=== PATIENT | female | born 1995 | race Caucasian/White ===

== ENCOUNTER 2017-11-02 16:57 | Emergency (ER) | payer OTHER, SELFPAY ==
[2017-11-02 18:12] LABS: Urine Blood NEGATIVE (NEG); Urine Glucose TRACE (NEG); Urine Protein 1+ (NEG); Urine Specific Gravity >1.030 (1.005-1.030)
[2017-11-02 18:40] LABS: Absolute Lymphocytes (CBC) 2.1 K/uL (0.7-4.9); Absolute Monocytes 0.6 K/uL (0.1-1.3); Absolute Neutrophil 8.5 K/uL (1.8-8.0); Basophils % 0.5 % (0-1.3); Eosinophils % 0.3 % (0-4.4); Lymphocytes % 18.8 % (15.3-44.8); MCH 28.5 pg (27.0-35.0); MCV 87.2 fL (80-100); MPV 9.7 fL (7.6-11.3); Monocytes % 5.3 % (3.3-12.3); RBC Red Blood Cell Count 4.36 M/uL (3.86-4.86)
[2017-11-02 18:48] LABS: BUN Blood Urea Nitrogen 7 mg/dL (6-20); Bicarbonate 23 mEq/L (21-31); Glucose Level 81 mg/dL (65-120); Potassium 3.4 mEq/L (3.6-5.0); Sodium Level 135 mEq/L (135-145)
--- NOTE | 2017-11-02 19:36 | RAD REPORT ---
EXAM DESCRIPTION: US - TRANSVAG OB - 11/02/2017 7:00 pm CLINICAL HISTORY: Vaginal bleeding. COMPARISON: None. FINDINGS: A single gestational sac is seen within the uterus within normal oblong gestational sac sh ape. Within the sac is a single pole with crown-rump length measuring 16 mm corresponding to 8 weeks 0 days gestational age. 13 x 7 mm subchorionic bleed is seen superiorly. Qualitative amniotic f luid for gestational age is normal. Cardiac activity is normal measuring 158 BPM. Both ovaries are normal in size, shape and echotexture with normal Doppler blood flow. IMPRESSION: Single live early intrauterine gestation as detailed above.13 x 7 mm subchorionic bleed along the superior aspect of the sac is noted.
--- NOTE | 2017-11-02 20:30 | EDPHYS ---
Physician Documentation [facility] Name: Yane Viera Age: 22 yrs Sex: Female : 1995 Arrival Date: 11/02/2017 Time: 17:01 Bed 15 Private MD: None, None ED Physician Da Gibson HPI: 11/02 17:20 This 22 yrs old Female presents to ER via Ambulatory with complaints of jmm Vaginal Bleeding, + Preg <12wks. 17:20 The patient presents to the emergency department with vaginal bleeding, that is jmm moderate, with no clots. The estimated gestational age is 8 weeks. course: care: none. Previous pregnancies: in previous pregnancies patient has had. Associated signs and symptoms: Pertinent positives: vaginal bleeding, vaginal discharge, Pertinent negatives: abdominal pain. The patient has not experienced similar symptoms in the past. DOCTORATE OF CHIROPRACTIC: 17:05 unknown rb1 17:20 2, Living 1 jmm Historical: - Allergies: 17:05 No Known Allergies; sv - Home Meds: 20:35 Vitamin Oral tab 1 tab once daily [Active]; bs1 - PMHx: 17:05 None; sv - PSHx: 17:05 None; sv - Immunization history:: Adult Immunizations up to date. - Social history:: Smoking status: Patient/guardian denies using tobacco. - Ebola Screening: : Patient denies exposure to infectious person Patient denies travel to an Ebola-affected area in the 21 days before illness onset. ROS: 17:20 Constitutional: Negative for fever, chills, and weight loss, Cardiovascular: Negative jmm for chest pain, palpitations, and edema, Respiratory: Negative for shortness of breath, cough, wheezing, and pleuritic chest pain, Abdomen/GI: Negative for abdominal pain, nausea, vomiting, diarrhea, and constipation, Back: Negative for injury and pain. 17:20 : Positive for vaginal bleeding, vaginal discharge. 17:20 Skin: 17:20 Neuro: Negative for weakness. 17:20 All other systems are negative. Exam: 17:20 Constitutional: This is a well developed, well nourished patient who is awake, alert, jmm and in no acute distress. Cardiovascular: Regular rate and rhythm. No gallops, murmurs, or rubs. Full/Equal distal pulses. Respiratory: Lungs have equal breath sounds bilaterally, clear to auscultation. No rales, rhonchi or wheezes noted. No increased work of breathing, no retractions or nasal flaring. Abdomen/GI: Soft, non-tender, with normal bowel sounds. No distension or tympany. No guarding or rebound. No evidence of tenderness throughout. 17:20 : Pelvic Exam: External exam: is normal, Speculum exam: no bleeding is noted, os that is closed, discharge, white. 17:20 Musculoskeletal/extremity: ROM: intact in all extremities. 17:20 Skin: Appearance: Color: normal in color. 17:20 Neuro: Orientation: is normal, Mentation: is normal, Memory: is normal, Gait: is steady. 17:20 Psych: Behavior/mood is pleasant, cooperative. Vital Signs: 17:05 BP 105 / 57; Pulse 83; Resp 16; Temp 98.7; Pulse Ox 98% on R/A; Weight 54.43 kg; Height sv 5 ft. 1 in. (154.94 cm); Pain 6/10; 18:00 BP 109 / 65; Pulse 78; Resp 17; Pulse Ox 99% ; rb1 19:15 BP 105 / 68; Pulse 67; Resp 16; Pulse Ox 99% on R/A; bs1 20:15 BP 108 / 58; Pulse 68; Resp 17 S; Temp 97.9(O); Pulse Ox 100% on R/A; Pain 0/10; bs1 17:05 Body Mass Index 22.67 (54.43 kg, 154.94 cm) sv MDM: 17:26 Patient medically screened. [facility] 20:29 Data reviewed: vital signs, nurses notes, lab test result(s), radiologic studies, [facility] ultrasound. Counseling: I had a detailed discussion with the patient and/or guardian regarding: the historical points, exam findings, and any diagnostic results supporting the discharge/admit diagnosis, lab results, radiology results, the need for outpatient follow up, to return to the emergency department if symptoms worsen or persist or if there are any questions or concerns that arise at home. 11/02 17:38 Order name: Urine Dipstick--Ancillary (enter results); Complete Time: 19:40 11/02 17:38 Order name: Urine --Ancillary (enter results); Complete Time: 19:40 11/02 18:10 Order name: Abo/rh Typing; Complete Time: 19:40 [facility] 11/02 18:10 Order name: Basic Metabolic Panel; Complete Time: 19:40 [facility] 11/02 18:10 Order name: CBC with Diff; Complete Time: 19:40 [facility] 11/02 18:10 Order name: IV Saline Lock; Complete Time: 18:55 [facility] 11/02 18:10 Order name: Labs collected and sent; Complete Time: 18:55 [facility] 11/02 18:10 Order name: NPO; Complete Time: 18:55 [facility] 11/02 18:10 Order name: Urine Dipstick-Ancillary (obtain specimen); Complete Time: 18:55 [facility] 11/02 18:22 Order name: TRANSVAG OB; Complete Time: 19:40 [facility] 11/02 19:11 Order name: Pelvic Exam Setup; Complete Time: 20:31 [facility] Administered Medications: 19:53 CANCELLED (wrong patient): fentaNYL (PF) 50 mcg IVP once [facility] Point of Care Testing: Urine : 20:35 hCG Reading: Positive; Control Reading: Positive; bs1 Disposition: 11/02/17 20:30 Discharged to Home. Impression: Threatened . - Condition is Stable. - Discharge Instructions: Threatened Miscarriage, Subchorionic Hematoma, Pelvic Rest. - Medication Reconciliation Form, Thank You Letter, Antibiotic Education, Prescription Opioid Use form. - Follow up: Private Physician; When: 1 - 2 days; Reason: Continuance of care. Addendum: 11/04/2017 07:02 Co-signature as Attending Physician, Da Gibson MD. r n Signatures: Dispatcher [employer] [facility] Lizy Velázquez RN RN sv Anderson, Corey, MD MD cha Mickail, Joel, PA PA Da Medina MD MD rn Salazar, Brittany, RN RN bs1 Corrections: (The following items were deleted from the chart) 11/02 18:22 18:12 Pelvis Complete+US.RAD.BRZ [facility]. [facility] 19:53 19:53 fentaNYL (PF) 50 mcg IVP once ordered. [facility] 20:35 17:05 Home Meds: None; sv bs1 20:49 20:30 11/02/2017 20:30 Discharged to Home. Impression: Threatened . Condition bs1 is Stable. Forms are Medication Reconciliation Form, Thank You Letter, Antibiotic Education, Prescription Opioid Use. Follow up: Private Physician; When: 1 - 2 days; Reason: Continuance of care. john
--- NOTE | 2017-11-02 20:30 | ER ---
Nurse's Notes [facility] Name: Yane Viera Age: 22 yrs Sex: Female : 1995 Arrival Date: 11/02/2017 Time: 17:01 Bed 15 Private MD: None, None Diagnosis: Threatened Presentation: 11/02 17:03 Presenting complaint: Patient states: "I'm like 8-9 weeks and I was sitting sv down earlier and then a gush of blood came out. This happened once before when I was with my daughter and I ended up miscarrying her twin. I'm also have bad cramps.". Transition of care: patient was not received from another setting of care. Onset of symptoms was November 02, 2017. Risk Assessment: Do you want to hurt yourself or someone else? Patient reports no desire to harm self or others. Initial Sepsis Screen: Does the patient meet any 2 criteria? No. Patient's initial sepsis screen is negative. Does the patient have a suspected source of infection? No. Patient's initial sepsis screen is negative. Care prior to arrival: None. 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 - Social history:: Smoking status: Patient/guardian denies using tobacco. - Ebola Screening: : Patient denies exposure to infectious person Patient denies travel to an Ebola-affected area in the 21 days before illness onset. Screenin:15 Abuse screen: Denies threats or abuse. Nutritional screening: No deficits noted. rb1 Tuberculosis screening: No symptoms or risk factors identified. Fall Risk None identified. Assessment: 17:15 General: Appears in no apparent distress. comfortable, Behavior is calm, cooperative, rb1 Denies fever. Pain: Complains of pain in suprapubic area Pain currently is 5 out of 10 on a pain scale. at worst was 8 out of 10 on a pain scale. Neuro: Level of Consciousness is awake, alert, obeys commands, Oriented to person, place, time, situation. Cardiovascular: Capillary refill < 3 seconds is brisk in bilateral fingers. Respiratory: Airway is patent Respiratory effort is even, unlabored, Respiratory pattern is regular, symmetrical. GI: Reports nausea. : Reports vaginal bleeding that is bright red, Had a moderate amount of vaginal bleeding this morning but the bleeding has slowed down per pt. report. Derm: Skin is pink, warm \\T\\ dry. 18:08 Reassessment: Patient appears in no apparent distress at this time. No changes from rb1 previously documented assessment. 19:05 Reassessment: Report received from ANNITA Maxwell. bs1 19:05 General: Appears in no apparent distress. comfortable, Behavior is calm, cooperative, bs1 appropriate for age. Pain: Complains of pain in abdomen and suprapubic area. Neuro: Level of Consciousness is awake, alert, obeys commands, Oriented to person, place, time, situation. Cardiovascular: Denies chest pain, shortness of breath, Heart tones S1 S2 present Capillary refill < 3 seconds Patient's skin is warm and dry. Respiratory: Airway is patent Trachea midline Respiratory effort is even, unlabored, Respiratory pattern is regular, symmetrical, Breath sounds are clear bilaterally. GI: Reports nausea. : Reports vaginal bleeding that is bright red. Derm: Skin is intact, Skin is pink, warm \\T\\ dry. 20:20 Reassessment: Assisted BRANDON Lopez with pelvic exam, patient tolerated. bs1 Vital Signs: 17:05 BP 105 / 57; Pulse 83; Resp 16; Temp 98.7; Pulse Ox 98% on R/A; Weight 54.43 kg; Height sv 5 ft. 1 in. (154.94 cm); Pain 6/10; 18:00 BP 109 / 65; Pulse 78; Resp 17; Pulse Ox 99% ; rb1 19:15 BP 105 / 68; Pulse 67; Resp 16; Pulse Ox 99% on R/A; bs1 20:15 BP 108 / 58; Pulse 68; Resp 17 S; Temp 97.9(O); Pulse Ox 100% on R/A; Pain 0/10; bs1 17:05 Body Mass Index 22.67 (54.43 kg, 154.94 cm) sv Vitals: 17:05 Heart Tones Too early for FHT. rb1 ED Course: 17:01 Patient arrived in ED. mr 17:01 None, None is Private Physician. mr 17:04 Triage completed. sv 17:05 Arm band placed on right wrist. 17:13 John Sousa PA is PHCP. [facility] 17:13 Da Gibson MD is Attending Physician. [facility] 17:15 Patient has correct armband on for positive identification. Bed in low position. Call rb1 light in reach. Side rails up X 1. Pulse ox on. NIBP on. 17:42 Alissa Roque, RN is Primary Nurse. rb1 18:27 Initial lab(s) drawn, by ny, sent to lab. Urine collected: clean catch specimen, clear. [facility] Inserted saline lock: 22 gauge in right antecubital area, using aseptic technique. Blood collected. 19:00 Report given to ANNITA Jacobson. [facility] 19:01 TRANSVAG OB In Process Unspecified. EDMS 19:01 Abo/rh Typing Sent. [facility] 20:20 Assist provider with pelvic exam: Set up pelvic tray. Performed by John TAYLOR bs1 Patient tolerated well. 20:34 IV discontinued, bleeding controlled, No redness/swelling at site. Pressure dressing bs1 applied. Administered Medications: 19:53 CANCELLED (wrong patient): fentaNYL (PF) 50 mcg IVP once [facility] Point of Care Testing: Urine : 20:35 hCG Reading: Positive; Control Reading: Positive; bs1 Outcome: 20:30 Discharge ordered by . [facility] 20:40 Discharged to home ambulatory. bs1 20:40 Condition: stable 20:40 Discharge instructions given to patient, Instructed on discharge instructions, follow up and referral plans. Demonstrated understanding of instructions, follow-up care. 20:49 Patient left the ED. bs1 Signatures: Dispatcher [employer] Lizy Maurer RN RN sv Mickail, Joel, PA PA jmm Rivera, Maria mr Alissa Roque, Marizol Segovia RN [facility] Indira Jessica RN RN bs1 Corrections: (The following items were deleted from the chart) 20:35 17:05 Home Meds: None; sv bs1 20:39 20:34 No provider procedures requiring assistance completed. bs1 bs1
== END 2017-11-02 20:49 | disposition home or self-care (01) ==
LOC: ER 16:57
DX: O20.0 Threatened abortion (principal); Z3A.08 8 weeks gestation of pregnancy
CPT/HCPCS: 36415; 76813; 80048; 81003; 81025; 85025; 86900; 86901; 99284

== ENCOUNTER 2018-01-22 00:20 | Emergency (ER) | payer OTHER ==
[2018-01-22] MEDS ORDERED: D5 0.9 NS 1,000 ML IV ONE ×2 (01:01→02:12)
[2018-01-22 01:10] LABS: Urine Blood NEGATIVE (NEG); Urine Glucose NEGATIVE (NEG); Urine Protein NEGATIVE (NEG); Urine Specific Gravity >1.030 (1.005-1.030)
[2018-01-22 01:36] LABS: Calcium Oxalate Crystals- Ur FEW (NONE SEEN); Urine Bacteria 20-50 /HPF (<20); Urine Culture Reflex Order REFLEXED; Urine Mucus MOD /HPF (NONE SEEN); Urine RBC <5 /HPF (NONE SEEN); Urine Trichomonas PRESENT (NONE SEEN)
[2018-01-22] MEDS ORDERED: metroNIDAZOLE 500 MG TABLET ONE (02:12)
[2018-01-22] MEDS ORDERED: CEFTRIAXONE/SWI 1gm 1 GM/10 ML SYR ONE (02:13)
--- NOTE | 2018-01-22 02:21 | ER ---
Nurse's Notes [facility] Name: Yane Viera Age: 22 yrs Sex: Female : 1995 Arrival Date: 01/22/2018 Time: 00:21 Bed 27 Private MD: Diagnosis: False labor before 37 completed weeks of gestation, second trimester;Cystitis;Trichomoniasis Presentation: 01/22 00:35 Presenting complaint: Patient states: she is 19 weeks and a few days ago she bb thought she lost her mucous plug then tonight she started feeling contractions in her abdomen, denies vaginal bleeding. Transition of care: patient was not received from another setting of care. Onset of symptoms was January 20, 2018. Risk Assessment: Do you want to hurt yourself or someone else? Patient reports no desire to harm self or others. Initial Sepsis Screen: Does the patient meet any 2 criteria? No. Patient's initial sepsis screen is negative. Does the patient have a suspected source of infection? No. Patient's initial sepsis screen is negative. Care prior to arrival: None. 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 - Social history:: Smoking status: Patient/guardian denies using tobacco, Patient/guardian denies using alcohol, street drugs. - Ebola Screening: : No symptoms or risks identified at this time. Screenin:21 Abuse screen: Denies threats or abuse. Denies injuries from another. Nutritional rv screening: No deficits noted. Tuberculosis screening: No symptoms or risk factors identified. Fall Risk None identified. Assessment: 01:05 General: Appears in no apparent distress. comfortable, Behavior is calm, cooperative. rv Pain: Complains of pain in abdomen. Neuro: Level of Consciousness is awake, alert, obeys commands, Oriented to person, place, time, situation. Cardiovascular: Capillary refill < 3 seconds. Respiratory: Airway is patent. GI: No signs and/or symptoms were reported involving the gastrointestinal system. : No signs and/or symptoms were reported regarding the genitourinary system. EENT: No signs and/or symptoms were reported regarding the EENT system. Derm: Skin is intact. 01:29 Reassessment: Patient appears in no apparent distress at this time. Patient and/or rv family updated on plan of care and expected duration. Pain level reassessed. Patient is alert, oriented x 3, equal unlabored respirations, skin warm/dry/pink. PATIENT SENT TO T\ FOR MONITORING. 02:03 Reassessment: PATIENT CAME BACK FROM T\. rv Vital Signs: 00:38 BP 121 / 67; Pulse 93; Resp 16 S; Temp 98.4(O); Pulse Ox 100% on R/A; Weight 53.98 kg bb (R); Height 5 ft. 1 in. (154.94 cm) (R); Pain 4/10; 00:51 BP 113 / 71; Pulse 87; Pulse Ox 100% on R/A; rv 02:12 BP 112 / 55; Pulse 79; Pulse Ox 100% on R/A; rv 00:38 Body Mass Index 22.48 (53.98 kg, 154.94 cm) bb Vitals: 01:21 Heart Tones 160s. rv ED Course: 00:21 Patient arrived in ED. am2 00:35 Enrique Mirza MD is Attending Physician. gs 00:37 Triage completed. bb 00:38 Arm band placed on Patient placed in an exam room, on a stretcher, on pulse oximetry. bb 01:22 Patient has correct armband on for positive identification. Placed in gown. Bed in low rv position. Call light in reach. Side rails up X 1. Pulse ox on. NIBP on. 01:22 No provider procedures requiring assistance completed. Inserted saline lock: 20 gauge rv in right antecubital area, using aseptic technique. 02:30 IV discontinued, bleeding controlled, No redness/swelling at site. Pressure dressing rv applied. 02:31 Urine Culture Sent. rv Administered Medications: 01:05 Drug: D5-NS 1000 ml Route: IV; Rate: bolus; Site: right antecubital; rv 02:12 Follow up: IV Status: Completed infusion rv 02:12 Drug: D5-NS 500 ml Route: IV; Rate: 500 bolus; Site: right antecubital; rv 02:31 Follow up: IV Status: Completed infusion rv 02:12 Drug: Rocephin - (cefTRIAXone) 1 grams Route: IVPB; Infused Over: 30 mins; Site: right rv antecubital; 02:31 Follow up: IV Status: Completed infusion rv 02:12 Drug: Flagyl 1 grams Route: PO; rv 02:30 Follow up: Response: No adverse reaction rv Outcome: 02:21 Discharge ordered by . gs 02:30 Discharged to home ambulatory. rv 02:30 Condition: good 02:30 Discharge instructions given to patient, Instructed on discharge instructions, follow up and referral plans. medication usage, Demonstrated understanding of instructions, follow-up care, medications, Prescriptions given X 1. 02:30 Patient left the ED. rv Signatures: Shyla Maldonado RN RN Katerina Brenner am2 Enrique Mirza MD MD gs Vicente, Ronaldo, RN RN rv Corrections: (The following items were deleted from the chart) : 01:23 Patient admitted, IV remains in place. intact, rv rv 01:22 Condition: stable rv rv 01:22 Admitted to L \T\ D, accompanied by tech, via wheelchair, with chart, rv rv 01:22 Instructed on the need for admit, rv rv
--- NOTE | 2018-01-22 02:21 | EDPHYS ---
Physician Documentation [facility] Name: Yane Viera Age: 22 yrs Sex: Female : 1995 Arrival Date: 01/22/2018 Time: 00:21 Bed 27 Private MD: ED Physician Enrique Mirza HPI: 01/22 02:13 This 22 yrs old Female presents to ER via Ambulatory with complaints of gs Contractions 19 wks preg. 02:13 The patient presents to the emergency department with possible uterine contractions, gs 3-7 minutes. The estimated gestational age is 19.6 weeks. course: care: at a clinic, Leakage of Fluid: none appreciated. Previous pregnancies: in previous pregnancies patient has had. Associated signs and symptoms: Pertinent negatives: chest pain, fever, shortness of breath, vomiting. The patient has experienced similar episodes in the past, a few times. 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 - Social history:: Smoking status: Patient/guardian denies using tobacco, Patient/guardian denies using alcohol, street drugs. - Ebola Screening: : No symptoms or risks identified at this time. ROS: 02:13 All other systems are negative. gs 02:13 : Negative for vaginal bleeding, vaginal discharge, vaginal itching. gs Exam: 02:13 Head/Face: Normocephalic, atraumatic. Eyes: Pupils equal round and reactive to light, gs extra-ocular motions intact. Lids and lashes normal. Conjunctiva and sclera are non-icteric and not injected. Cornea within normal limits. Periorbital areas with no swelling, redness, or edema. ENT: Nares patent. No nasal discharge, no septal abnormalities noted. Tympanic membranes are normal and external auditory canals are clear. Oropharynx with no redness, swelling, or masses, exudates, or evidence of obstruction, uvula midline. Mucous membranes moist. Neck: Trachea midline, no thyromegaly or masses palpated, and no cervical lymphadenopathy. Supple, full range of motion without nuchal rigidity, or vertebral point tenderness. No Meningismus. Chest/axilla: Normal chest wall appearance and motion. Nontender with no deformity. No lesions are appreciated. Cardiovascular: Regular rate and rhythm with a normal S1 and S2. No gallops, murmurs, or rubs. Normal PMI, no JVD. No pulse deficits. Respiratory: Lungs have equal breath sounds bilaterally, clear to auscultation and percussion. No rales, rhonchi or wheezes noted. No increased work of breathing, no retractions or nasal flaring. Back: No spinal tenderness. No costovertebral tenderness. Full range of motion. Skin: Warm, dry with normal turgor. Normal color with no rashes, no lesions, and no evidence of cellulitis. MS/ Extremity: Pulses equal, no cyanosis. Neurovascular intact. Full, normal range of motion. Neuro: Awake and alert, GCS 15, oriented to person, place, time, and situation. Cranial nerves II-XII grossly intact. Motor strength 5/5 in all extremities. Sensory grossly intact. Cerebellar exam normal. Normal gait. 02:13 Constitutional: The patient appears alert, awake. 02:13 Abdomen/GI: Inspection: gravid appearance, is noted, Palpation: abdomen is soft and gs non-tender, in all quadrants. Vital Signs: 00:38 BP 121 / 67; Pulse 93; Resp 16 S; Temp 98.4(O); Pulse Ox 100% on R/A; Weight 53.98 kg bb (R); Height 5 ft. 1 in. (154.94 cm) (R); Pain 4/10; 00:51 BP 113 / 71; Pulse 87; Pulse Ox 100% on R/A; rv 02:12 BP 112 / 55; Pulse 79; Pulse Ox 100% on R/A; rv 00:38 Body Mass Index 22.48 (53.98 kg, 154.94 cm) bb MDM: 00:53 Patient medically screened. gs 02:13 Differential diagnosis: Morrow hernández, delivery of infant, STD, Data reviewed: vital gs signs, nurses notes. Response to treatment: the patient's symptoms have markedly improved after treatment, patient is well hydrated. and as a result, I will discharge patient. ED course: no contraction and good fht by monitor, will cont to hydrate treat trich and uti. 01/22 00:35 Order name: Urine Microscopic Only; Complete Time: 01:39 01/22 00:48 Order name: Urine Dipstick--Ancillary (enter results) rg2 01/22 00:49 Order name: Urine Dipstick-Ancillary [facility] 01/22 01:39 Order name: Urine Culture [facility] 01/22 00:35 Order name: Vital Signs; Complete Time: 00:58 01/22 00:35 Order name: Urine Dipstick-Ancillary (obtain specimen); Complete Time: 00:46 gs Administered Medications: 01:05 Drug: D5-NS 1000 ml Route: IV; Rate: bolus; Site: right antecubital; rv 02:12 Follow up: IV Status: Completed infusion rv 02:12 Drug: D5-NS 500 ml Route: IV; Rate: 500 bolus; Site: right antecubital; rv 02:31 Follow up: IV Status: Completed infusion rv 02:12 Drug: Rocephin - (cefTRIAXone) 1 grams Route: IVPB; Infused Over: 30 mins; Site: right rv antecubital; 02:31 Follow up: IV Status: Completed infusion rv 02:12 Drug: Flagyl 1 grams Route: PO; rv 02:30 Follow up: Response: No adverse reaction rv Disposition: 01/22/18 02:21 Discharged to Home. Impression: False labor before 37 completed weeks of gestation, second trimester, Cystitis, Trichomoniasis. - Condition is Stable. - Discharge Instructions: Abdominal Pain During , Urinary Tract Infection, Adult, Morrow Hernández Contractions. - Prescriptions for Keflex 500 mg Oral Capsule - take 1 capsule by ORAL route every 12 hours for 5 days; 10 capsule. - Medication Reconciliation Form, Thank You Letter, Antibiotic Education, Prescription Opioid Use form. - Follow up: Private Physician; When: 2 - 3 days; Reason: Re-evaluation by your physician. Signatures: Dispatcher [employer] Shyla Dobbins RN RN bb Starr, Gregory, MD MD gs Vicente, Ronaldo, RN RN rv Corrections: (The following items were deleted from the chart) 02:21 02:21 01/22/2018 02:21 Discharged to Home. Impression: False labor before 37 completed gs weeks of gestation, second trimester. Condition is Stable. Forms are Medication Reconciliation Form, Thank You Letter, Antibiotic Education, Prescription Opioid Use. Follow up: Private Physician; When: 2 - 3 days; Reason: Re-evaluation by your physician. 02:30 02:21 01/22/2018 02:21 Discharged to Home. Impression: False labor before 37 completed rv weeks of gestation, second trimester; Cystitis; Trichomoniasis. Condition is Stable. Forms are Medication Reconciliation Form, Thank You Letter, Antibiotic Education, Prescription Opioid Use. Follow up: Private Physician; When: 2 - 3 days; Reason: Re-evaluation by your physician.
== END 2018-01-22 02:30 | disposition home or self-care (01) ==
LOC: ER 00:20
DX: O47.02 False labor before 37 completed weeks of gestation, second trimester (principal); N30.90 Cystitis, unspecified without hematuria; A59.9 Trichomoniasis, unspecified; Z3A.19 19 weeks gestation of pregnancy
CPT/HCPCS: 81003; 81015; 87086; 87088; 96361; 96365; 99284; J0696

== ENCOUNTER 2020-09-19 18:31 | Emergency (ER) | payer OTHER ==
--- OUTSIDE RECORDS SUMMARY | 2020-09-19 18:33 | XMS REPORT | Continuity of Care Document ---
:1995 Author Organization [facility] t Address [address] [place] [address] Care Team Providers Name Role Phone Unavailable Unavailable Unavailable Payers Payer Name Policy Type Policy Number Effective Date Expiration Date S ource Problems This patient has no known problems. Allergies, Adverse Reactions, Alerts Allergy Allergy Status Severity Reaction(s) Onset Inactive Treating Comm ents Source Name Type Date Date Clinician No Known DA Active U 2017-05 [facility] [place] No Known DA Active U 2017-05 [facility] [place] No Known DA Active U 2016-05 [facility] 1[facility] [place] Social History Smoking Status Start Date Stop Date Source Never Smoker [facility] Medications Ordered Filled Start Stop Current Ordering Indication Dosage Frequency Signature Comments Components Source Medication Medication Date Date Medication? Clinician (SIG) Name Name Flagyl 500 Flagyl 500 No 1 BID Flagyl 500 [place] mg tablet mg tablet mg tablet da Take 1 Take 1 Take 1 [facility] tablet tablet tablet al twice a day twice a day twice a Health by oral by oral day by Outre[facility] route for 7 route for 7 oral route h days. days. for 7 Program days. 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[facility]) [facility] BP Systolic 2019-12-25 00:00:00 110 mm[facility]Hg[facility] Body Weight 2019-12-25 00:00:00 114 [lb_av] [facility] BP Diastolic 2019-07-31 00:00:00 70 mm[facility]Hg] [facility] Height 2019-07-31 00:00:00 61 [in_i] [facility] BMI (Body Mass 2019-07-31 00:00:00 21.5 kg/m2 [facility] 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 [facility] Index) [facility] BP Systolic 2019-07-31 00:00:00 121 mm[Hg] [facility] Body Weight 2019-07-31 00:00:00 114 [lb_av] [facility] BP Diastolic 2019-01-30 00:00:00 79 mm[Hg] [facility] Height 2019-01-30 00:00:00 61 [in_i] [facility] BMI (Body Mass 2019-01-30 00:00:00 22.5 kg/m2 [place] 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 Plan of Care Planned Activity Planned Date Details Comments Source Diagnostic Test 2019-12-25 RPR (rapid plasma [place] Pending 00:00:00 [facility]), serum [code [facility] = RPR (rapid plasma [facility] re[facility]), serum] Diagnostic Test 2019-12-25 HIV 1+2 AB + HIV 1 [facility] 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 Pending 00:00:00 p24 Ag, qualitative [facility] immunoassay, serum [facility] [code = HIV 1+2 AB + HIV 1 p24 Ag, qualitative immunoassay, serum] Diagnostic Test 2019-12-25 HBsAg (hepatitis B [facility] 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 Pending 00:00:00 surface Ag), EIA, [facility] serum [code = HBsAg [facility] (hepatitis B surface Ag), EIA, serum] Diagnostic Test 2019-12-25 cytology report, thin [place] Pending 00:00:00 prep, smear or [facility] scraping, cervical or Outrea ch Program vaginal [code = cytology report, thin prep, smear or scraping, cervical or vaginal] Encounters Start End Encounter Admission Attending Care Care Encounter Source Date/Time Date/Time Type Type Clinicians Facility Department ID 2019-12-25 2019-12-25 Carla ELIAS [place] - [id number] M [facility] 00:00:00 00:00:00 Zaria Milligan, [facility] PROCESS DESCRIPTION WRITER: [address] Tyson F N, CORPORATE DIRECTOR [facility] [place] [id number] Progr am , Ph. 2019-07-31 2019-07-31 Carla ELIAS [place] - [id number] M [facility] 00:00:00 00:00:00 Zaria Milligan, [facility] PROCESS DESCRIPTION WRITER: [address] Tyson F N, CORPORATE DIRECTOR [facility] [place] [id number] Progr am , Ph. 2019-01-30 2019-01-30 Carla ELIAS [place] - [id number] M [facility] 00:00:00 00:00:00 Zaria Milligan, [facility] PROCESS DESCRIPTION WRITER: [address] Tyson F N, CORPORATE DIRECTOR [facility] [place] [phone] Progr am , Ph. Results Test Description Test Time Test Comments Results Result Comments Source Urinalysis macro (dipstick) panel - Urine 2019-07-31 10:51:0 0 Test Item Value Reference Range Interpretation Comme nts Leukocytes (test code = Leukocytes) trace Nitrite (test code = Nitrite) negative Urobilinogen (test code = Urobilinogen) 0.2 Protein (test code = Protein) negative pH (test code = pH) 7.5 Blood (test code = Blood) trace-lysed Specific [place] (test code = Specific [place]) 1.020 Ketone (test code = Ketone) negative Bilirubin (test code = Bilirubin) negative Glucose (test code = Glucose) negative Appearance (test code = Appearance) clear Color (test code = Color) yellow [facility]
[2020-09-19] MEDS ORDERED: DICYCLOMINE HCL 10 MG CAP ONE ×2 (22:40→22:42)
[2020-09-19] MEDS ORDERED: NA CHLORIDE 0.9% 0 ML ONE (22:41)
[2020-09-19 22:42] LABS: Urine Blood Trace-intact (Negative); Urine Glucose Negative (Negative); Urine Protein Negative (Negative); Urine Specific Gravity >=1.030 (1.005-1.030)
[2020-09-19 23:19] LABS: Absolute Lymphocytes (CBC) 2.5 K/uL (0.7-4.9); Basophils % 0.6 % (0-1.3); Hematocrit 37.8 % (36.0-45.0); Lymphocytes % 21.9 % (15.3-44.8); MPV 9.2 fL (7.6-11.3); RBC Red Blood Cell Count 4.32 M/uL (3.86-4.86)
[2020-09-19 23:22] LABS: Urine Bacteria <20 /HPF (<20); Urine RBC NONE SEEN /HPF (NONE SEEN)
[2020-09-19 23:40] LABS: ALT/SGPT 19 U/L (12-78); AST/SGOT 10 U/L (15-37); Albumin 4.2 g/dL (3.4-5.0); Alkaline Phosphatase 53 U/L (45-117); BUN Blood Urea Nitrogen 10 mg/dL (7-18); Bicarbonate 24 mmol/L (21-32); Bilirubin Direct 0.1 mg/dL (0-0.2); Bilirubin Total 0.6 mg/dL (0.2-1.0); Glucose Level 110 mg/dL (74-106); HCG, Quantitative 47 mIU/mL (1-3); Lipase 88 U/L (73-393); Potassium 3.7 mmol/L (3.5-5.1); Protein, Total 7.6 g/dL (6.4-8.2); Sodium Level 138 mmol/L (136-145)
[2020-09-20 00:43] LABS: Urine Specific Gravity/Preg >1.030 (1.005-1.030)
--- NOTE | 2020-09-20 01:20 | EDPHYS ---
Physician Documentation [facility] Name: Yane Viera Age: 25 yrs Sex: Female : 1995 Arrival Date: 09/19/2020 Time: 18:40 Bed 30 Private MD: ED Physician Jose Sexton HPI: 09/19 22:09 This 25 yrs old Female presents to ER via Ambulatory with complaints of cp Abdominal Pain. 22:09 The patient presents with abdominal pain in the lower abdomen. Onset: The cp symptoms/episode began/occurred yesterday. The symptoms do not radiate. The symptoms are described as crampy. 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 - Social history:: Smoking status: Reported history of juuling and/or vaping. Patient uses street drugs, CBD oil. ROS: 22:10 Eyes: Negative for injury, pain, redness, and discharge. cp 22:10 Constitutional: Negative for body aches, chills, fever, poor PO intake. 22:10 Cardiovascular: Negative for chest pain. 22:10 Respiratory: Negative for cough, shortness of breath, wheezing. 22:10 Abdomen/GI: Positive for abdominal cramps, Negative for nausea and vomiting, diarrhea, constipation. 22:10 Back: Negative for radiated pain. 22:10 : Negative for urinary symptoms, vaginal bleeding, vaginal discharge. 22:10 All other systems are negative. Exam: 22:11 Head/Face: Normocephalic, atraumatic. cp 22:11 Constitutional: The patient appears in no acute distress, alert, awake, comfortable, non-toxic, well developed, well nourished. 22:11 Eyes: Periorbital structures: appear normal, Conjunctiva: normal, no exudate, no injection, Sclera: no appreciated abnormality, Lids and lashes: appear normal, bilaterally. 22:11 ENT: External ear(s): are unremarkable, Nose: is normal, Mouth: Lips: moist, Oral mucosa: moist, Posterior pharynx: Airway: no evidence of obstruction, patent. 22:11 Chest/axilla: Inspection: normal, Palpation: is normal, no crepitus, no tenderness. 22:11 Cardiovascular: Rate: normal, Rhythm: regular. 22:11 Respiratory: the patient does not display signs of respiratory distress, Respirations: normal, no use of accessory muscles, no retractions, labored breathing, is not present. 22:11 Abdomen/GI: Inspection: abdomen appears normal, Bowel sounds: active, all quadrants, Palpation: soft, in all quadrants, mild abdominal tenderness, in the right lower quadrant and left lower quadrant, rebound tenderness, is not appreciated, voluntary guarding, is not appreciated, involuntary guarding, is not appreciated. 22:11 Back: pain, is absent, ROM is normal. Vital Signs: 18:53 BP 116 / 80; Pulse 68; Resp 18; Temp 97.9(TE); Pulse Ox 100% on R/A; Weight 55.79 kg tw2 (R); Height 5 ft. 1 in. (154.94 cm); Pain 4/10; 22:48 BP 112 / 80; Pulse 70; Resp 16; Pulse Ox 100% on R/A; jm8 09/20 00:06 BP 124 / 78; Pulse 64; Resp 16; Pulse Ox 100% on R/A; jm8 02:08 BP 119 / 84; Pulse 64; Resp 16; Pulse Ox 100% on R/A; 8 09/19 18:53 Body Mass Index 23.24 (55.79 kg, 154.94 cm) tw2 MDM: 09/19 22:04 Patient medically screened. cp 23:30 Differential diagnosis: appendicitis, Ectopic , non-specific abd pain, Ovarian cp Torsion, Pelvic Inflammatory Disease, Pyelonephritis, Tubal Ovarian Abcess, Ureterolithiasis, urinary tract infection. 09/20 01:18 Data reviewed: vital signs, nurses notes, lab test result(s), US tech reports no cp evidence of IUP and/or ectopic at this time. Counseling: I had a detailed discussion with the patient and/or guardian regarding: the historical points, exam findings, and any diagnostic results supporting the discharge/admit diagnosis, lab results, radiology results, the need for outpatient follow up, an OB/Gyne specialist, to return to the emergency department if symptoms worsen or persist or if there are any questions or concerns that arise at home. 09/19 22:42 Order name: Urine Dipstick-Ancillary; Complete Time: 00:07 [facility] 09/20 00:07 Interpretation: Normal except: UBLD Trace-intact. 09/19 23:04 Order name: Urine Microscopic Only; Complete Time: 00:07 [facility] 09/20 01:56 Interpretation: Within normal limits. 09/19 23:16 Order name: Basic Metabolic Panel; Complete Time: 00:07 [facility] 09/20 00:07 Interpretation: Normal except: GLUC 110. 09/19 23:16 Order name: Liver (Hepatic) Function; Complete Time: 00:07 [facility] 09/19 23:16 Order name: Lipase; Complete Time: 00:07 [facility] 09/19 23:16 Order name: HCG, Quantitative; Complete Time: 00:07 [facility] 09/20 00:08 Interpretation: Abnormal: HCGQ 47. 09/19 23:16 Order name: CBC with Automated Diff; Complete Time: 00:07 [facility] 09/20 00:08 Interpretation: Normal except: WBC 11.20. 09/19 22:10 Order name: Labs collected and sent; Complete Time: 23:10 09/19 22:10 Order name: Urine Dipstick-Ancillary (obtain specimen); Complete Time: 22:45 09/19 22:10 Order name: Urine Test (obtain specimen); Complete Time: 22:44 09/19 23:16 Order name: Rh Typing; Complete Time: 01:53 [facility] 09/20 00:08 Interpretation: Reviewed. 09/19 23:21 Order name: Transvaginal OB [facility] 09/20 00:42 Order name: Urine --Ancillary (enter results); Complete Time: 01:53 mw2 Administered Medications: 09/19 22:24 Drug: Bentyl (dicyclomine) 20 mg Route: PO; [facility] 09/20 02:11 Follow up: Response: No adverse reaction; Pain is decreased [facility] 09/19 22:58 Not Given (Patient Refused): NS 0.9% 1000 ml IV at 1 bolus Per protocol; 1000 mL bolus [facility] 09/20 01:53 CANCELLED (Physician Discretion): RhoGAM (Human) 300 mcg IM once cp Point of Care Testing: Urine : 09/19 22:45 hCG Reading: Positive; Control Reading: Positive; [email or web address] Disposition: 09/20 06:34 Co-signature as Attending Physician, Jose Sexton MD. 7 Disposition: 09/20/20 01:19 Discharged to Home. Impression: Threatened . - Condition is Stable. - Discharge Instructions: Threatened Miscarriage, Vaginal Bleeding During , First Trimester, Pelvic Rest, Form - Excuse from Work, School, or Physical Activity. - Prescriptions for Vitamin 27- 0.8 mg Oral Tablet - take 1 tablet by ORAL route once daily; 60 tablet. - Medication Reconciliation Form, Thank You Letter, Antibiotic Education, Prescription Opioid Use form. - Follow up: Private Physician; When: 48 Hours; Reason: Repeat Beta-HCG (48 Hours). - Problem is new. - Symptoms have improved. Signatures: Dispatcher [employer] EDMS Raymond López PA PA cp Wise, Tara RN RN tw2 Jose Sexton MD MD 7 Berhane Hurtado RN RN 8 Corrections: (The following items were deleted from the chart) 09/19 22:59 22:10 IV Saline Lock ordered. cp [facility] 23:33 23:33 RH TYPE+BB.LAB.BRZ ordered. EDMS EDMS 23:49 23:33 UA MICROSCOPIC+U.LAB.BRZ ordered. EDMS EDMS 23:50 23:33 CBC+H.LAB.BRZ ordered. EDMS EDMS 23:50 23:33 QUANTITATIVE HCG+C.LAB.BRZ ordered. EDMS EDMS 23:51 23:33 BASIC METABOLIC PANEL+C.LAB.BRZ ordered. EDMS EDMS 23:51 23:33 HEPATIC FUNCTION+C.LAB.BRZ ordered. EDMS EDMS 23:51 23:33 LIPASE+C.LAB.BRZ ordered. EDMS EDMS 09/20 00:21 09/19 23:33 Transvaginal Ob+US.RAD.BRZ ordered. EDMS EDMS 09/20 01:43 00:50 Fetalscreen ordered. EDMS EDMS 01:53 00:08 RhoGAM (Human) 300 mcg IM once ordered. cp cp :53 00:32 RhoGAM (Human) 300 mcg IM once ordered. 8 01:54 01:43 Rh Typing ordered. EDMS EDMS 01:54 01:43 Antibody Screen ordered. EDAL EDMS :54 01:43 Cord Rh type ordered. EDAL EDMS 01:54 01:43 Rhogam ordered. [facility] EDMS 02:12 01:19 09/20/2020 01:19 Discharged to Home. Impression: Threatened . Condition jm8 is Stable. Forms are Medication Reconciliation Form, Thank You Letter, Antibiotic Education, Prescription Opioid Use. Follow up: Private Physician; When: 48 Hours; Reason: Repeat Beta-HCG (48 Hours). Problem is new. Symptoms have improved. cp
--- NOTE | 2020-09-20 01:20 | ER ---
Nurse's Notes [facility] Name: Yane Viera Age: 25 yrs Sex: Female : 1995 Arrival Date: 09/19/2020 Time: 18:40 Bed 30 Private MD: Diagnosis: Threatened Presentation: 09/19 18:53 Chief complaint: Patient states: my stomach has been hurting yesterday, alicia like a tw2 cramping or burning sensation, last week i was vomiting. Chief complaint: Patient states: the pain comes and goes. Coronavirus screen: At this time, the client does not indicate any symptoms associated with coronavirus-19. Ebola Screen: Patient denies travel to an Ebola-affected area in the 21 days before illness onset. Initial Sepsis Screen: Does the patient meet any 2 criteria? No. Patient's initial sepsis screen is negative. Does the patient have a suspected source of infection? No. Patient's initial sepsis screen is negative. Risk Assessment: Do you want to hurt yourself or someone else? Patient reports no desire to harm self or others. Onset of symptoms was September 19, 2020. 18:53 Method Of Arrival: Ambulatory tw2 18:53 Acuity: ADILENE 3 tw2 Triage Assessment: 18:53 General: Appears in no apparent distress. slender, well groomed, Behavior is calm, tw2 cooperative, appropriate for age. Pain: Complains of pain in abdomen and pelvis. GI: Reports lower abdominal pain, cramping. 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 - Social history:: Smoking status: Reported history of juuling and/or vaping. Patient uses street drugs, CBD oil. Screenin:12 Abuse screen: Denies threats or abuse. Denies injuries from another. Nutritional jm8 screening: No deficits noted. Tuberculosis screening: No symptoms or risk factors identified. Fall Risk None identified. Assessment: 22:45 General: Appears in no apparent distress. Behavior is calm, cooperative, appropriate jm8 for age. Pain: Complains of pain in abdomen Pain currently is 4 out of 10 on a pain scale. Pain began 1 day ago. Neuro: No deficits noted. 23:11 Cardiovascular: No deficits noted. Respiratory: No deficits noted. GI: Bowel sounds jm8 present X 4 quads. Abd is soft and non tender X 4 quads. Reports lower abdominal pain, upper abdominal pain, since yesterday vaginal bleeding. : No deficits noted. EENT: No deficits noted. Derm: No deficits noted. Musculoskeletal: No deficits noted. Vital Signs: 18:53 BP 116 / 80; Pulse 68; Resp 18; Temp 97.9(TE); Pulse Ox 100% on R/A; Weight 55.79 kg tw2 (R); Height 5 ft. 1 in. (154.94 cm); Pain 4/10; 22:48 BP 112 / 80; Pulse 70; Resp 16; Pulse Ox 100% on R/A; jm8 09/20 00:06 BP 124 / 78; Pulse 64; Resp 16; Pulse Ox 100% on R/A; jm8 02:08 BP 119 / 84; Pulse 64; Resp 16; Pulse Ox 100% on R/A; jm8 09/19 18:53 Body Mass Index 23.24 (55.79 kg, 154.94 cm) tw2 ED Course: 09/19 18:40 Patient arrived in ED. mr 18:54 Triage completed. tw2 18:55 Arm band placed on. tw2 21:50 Raymond López PA is PHCP. cp 21:50 Jose Sexton MD is Attending Physician. cp 23:12 Patient has correct armband on for positive identification. Bed in low position. Call jm8 light in reach. Side rails up X2. 09/20 00:48 Transvaginal OB In Process Unspecified. EDMS 02:10 No provider procedures requiring assistance completed. Patient did not have IV access 8 during this emergency room visit. Administered Medications: 09/19 22:24 Drug: Bentyl (dicyclomine) 20 mg Route: PO; 8 09/20 02:11 Follow up: Response: No adverse reaction; Pain is decreased 8 09/19 22:58 Not Given (Patient Refused): NS 0.9% 1000 ml IV at 1 bolus Per protocol; 1000 mL bolus 8 09/20 01:53 CANCELLED (Physician Discretion): RhoGAM (Human) 300 mcg IM once cp Point of Care Testing: Urine : 09/19 22:45 hCG Reading: Positive; Control Reading: Positive; khushbu Outcome: 09/20 01:19 Discharge ordered by MD. hernández 02:11 Discharged to home khushbu 02:11 Condition: good 02:11 Discharge instructions given to patient, Instructed on discharge instructions, follow up and referral plans. Demonstrated understanding of instructions, follow-up care. 02:12 Patient left the ED. khushbu Signatures: Dispatcher [employer] EDMS Jie López Corey, PA PA cp Wise, Tara, RN RN tw2 Berhane Hurtado RN RN jm8 Corrections: (The following items were deleted from the chart) 01:43 01:11 Fetalscreen drawn and sent. khushbu HERNANDESSD
[2020-09-20 02:22] VITALS: TEMP 97.9; O2SAT 100
[2020-09-20 02:26] VITALS: BP 119/84
--- NOTE | 2020-09-20 12:10 | RAD REPORT ---
EXAM DESCRIPTION: Transvaginal OB 09/20/2020 12:57 AM CDT CLINICAL HISTORY: 25 years, Female, abdominal pain COMPARISON: None. TECHNIQUE: Utilizing a transvaginal transducer, real-time ultrasound evaluation of the female pelvis was performed. Color Doppler imaging was used to assess vascular flow. FINDINGS: The uterus measures 8.8 x 4.4 x 5.3 cm. The endometrial stripe demonstrate to be normal and measure 11 mm, no focal masses were identified within the uterus. The right ovary measured 2.5 x 2.9 x 2.8 cm, the left ovary measures 2.6 x 2.0 x 2.0 cm. There is nor mal vascular flow and spectral waveforms with no evidence for torsion. No free fluid was identified in the posterior cul-de-sac, no adnexal masses seen. IMPRESSION: UNREMARKABLE PELVIC ULTRASOUND. NO ADNEXAL MASSES SEEN. Electronically signed by: Deon Park MD 09/20/2020 1:02 AM CDT Due to temporary technical issues with the PACS/Fluency reporting system, reports are being signed by the in house radiologist without review as a courtesy to ensure prompt reporting. The interpreting r adiologist is fully responsible for the content of the report.
== END 2020-09-20 02:12 | disposition home or self-care (01) ==
LOC: ER 18:31
DX: O20.0 Threatened abortion (principal); F17.290 Nicotine dependence, other tobacco product, uncomplicated
CPT/HCPCS: 36415; 76817; 80048; 80076; 81003; 81015; 81025; 83690; 84702; 85025; 86901; 99283; J7030

== ENCOUNTER 2021-03-10 13:19 | Emergency (ER) | payer OTHER ==
[2021-03-10 14:11] LABS: Urine Blood 3+ (Negative); Urine Glucose Negative (Negative); Urine Protein 1+ (Negative)
--- NOTE | 2021-03-10 14:28 | RAD REPORT ---
EXAM DESCRIPTION: US - Transvaginal OB - 03/10/2021 2:09 pm CLINICAL HISTORY: VAGINAL BLEEDING, miscarriage, possible retained products of conception COMPARISON: Transvaginal OB dated 09/20/2020 FINDINGS: No gestational sac or sac remnant identifiable. No placental tissue seen. Thickened endome trial tissue is present. No measurable hematoma or mass within the endometrial cavity. Normal size uterus shows no myometrial mass lesion. No blood or fluid in the cul de sac. Both ovaries are identified and show normal blood flow within the ovarian stroma. No adnexal masses. IMPRESSION: No retained products of conception identifiable.
[2021-03-10 14:36] LABS: Absolute Lymphocytes (CBC) 1.3 K/uL (0.7-4.9); Basophils % 0.6 % (0-1.3); Hematocrit 33.7 % (36.0-45.0); Lymphocytes % 12.1 % (15.3-44.8); MPV 8.8 fL (7.6-11.3); RBC Red Blood Cell Count 3.86 M/uL (3.86-4.86)
[2021-03-10 15:01] LABS: BUN Blood Urea Nitrogen 7 mg/dL (7-18); Bicarbonate 26 mmol/L (21-32); Glucose Level 138 mg/dL (74-106); Potassium 3.4 mmol/L (3.5-5.1); Sodium Level 140 mmol/L (136-145)
[2021-03-10 15:11] LABS: HCG, Quantitative 29773 mIU/mL (1-3)
--- NOTE | 2021-03-10 15:14 | EDPHYS ---
Physician Documentation [facility] Name: Yane Viera Age: 26 yrs Sex: Female : 1995 Arrival Date: 03/10/2021 Time: 13:23 Bed 15 Private MD: ED Physician Melanie Vance HPI: 03/10 14:15 This 26 yrs old Female presents to ER via Ambulatory with complaints of kb Possible Miscarriage. 14:15 The patient presents to the emergency department with abdominal pain, of the suprapubic kb area, that started yesterday, described as crampy, vaginal bleeding, that is moderate. The estimated gestational age is 10 weeks. course: care: private OB physician, Dr. Molina, Leakage of Fluid: none appreciated, Ultrasound: the patient had an ultrasound, Risk/complications: no obvious risks or complications are appreciated. Previous pregnancies: in previous pregnancies patient has had. Associated signs and symptoms: Pertinent positives: abdominal pain, vaginal bleeding. The patient has not experienced similar symptoms in the past. The patient has not recently seen a physician. Pt reports she started having abd cramping and vaginal bleeding yesterday. States she passed the fetus at home, called her OB and was told to come here to make sure there were no retained products. 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 - Social history:: Smoking status: Patient denies any tobacco usage or history of. ROS: 14:14 Constitutional: Negative for fever, chills, and weight loss. kb 14:14 Abdomen/GI: Positive for abdominal cramps. 14:14 : Positive for vaginal bleeding. 14:14 All other systems are negative. Exam: 14:14 Constitutional: This is a well developed, well nourished patient who is awake, alert, kb and in no acute distress. Head/Face: Normocephalic, atraumatic. ENT: Moist Mucous membranes Respiratory: Respirations even and unlabored. No increased work of breathing, no retractions or nasal flaring. Abdomen/GI: Soft, non-tender. No distention Skin: Warm, dry with normal turgor. Normal color. MS/ Extremity: Pulses equal, no cyanosis. Neurovascular intact. Full, normal range of motion. Neuro: Awake and alert, GCS 15, oriented to person, place, time, and situation. Moves all extremities. Normal gait. Psych: Awake, alert, with orientation to person, place and time. Behavior, mood, and affect are within normal limits. Vital Signs: 13:38 BP 112 / 60; Pulse 92; Resp 16 S; Temp 98.2(TE); Pulse Ox 99% on R/A; Weight 58.06 kg aa5 (R); Height 5 ft. 1 in. (154.94 cm) (R); 15:25 BP 110 / 74; Pulse 77; Resp 15; Pulse Ox 99% on R/A; ll1 13:38 Body Mass Index 24.19 (58.06 kg, 154.94 cm) aa5 MDM: 13:42 Patient medically screened. kb 14:12 Data reviewed: vital signs, nurses notes. Data interpreted: Pulse oximetry: on room air kb is 99 %. Interpretation: normal. 15:12 Counseling: I had a detailed discussion with the patient and/or guardian regarding: the kb historical points, exam findings, and any diagnostic results supporting the discharge/admit diagnosis, lab results, radiology results, the need for outpatient follow up, an OB/Gyne specialist, to return to the emergency department if symptoms worsen or persist or if there are any questions or concerns that arise at home. 03/10 13:40 Order name: Abo/rh Typing; Complete Time: 15:11 kb 03/10 13:40 Order name: Basic Metabolic Panel; Complete Time: 15:12 kb 03/10 13:40 Order name: CBC with Diff; Complete Time: 14:42 kb 03/10 13:40 Order name: Quantitative Hcg; Complete Time: 15:12 kb 03/10 14:10 Order name: Urine --Ancillary (enter results) bd 03/10 14:10 Order name: Urine Dipstick-Ancillary; Complete Time: 14:13 EDMS 03/10 13:40 Order name: IV Saline Lock; Complete Time: 14:30 kb 03/10 13:40 Order name: Labs collected and sent; Complete Time: 14:30 kb 03/10 13:40 Order name: NPO; Complete Time: 14:30 kb 03/10 13:40 Order name: Urine Dipstick-Ancillary (obtain specimen); Complete Time: 14:30 kb 03/10 13:40 Order name: Urine Test (obtain specimen); Complete Time: 14:31 kb 03/10 13:40 Order name: US Transvaginal Ob; Complete Time: 14:33 kb Administered Medications: No medications were administered Disposition: 03/11 14:26 Co-signature as Attending Physician, Melanie Vance MD I agree with the assessment and sp3 plan of care. Disposition Summary: 03/10/21 15:13 Discharge Ordered Location: Home kb Condition: Stable kb Diagnosis - Complete or unspecified spontaneous without complication kb Followup: kb - With: Emergency Department - When: As needed - Reason: Worsening of condition Followup: kb - With: Private Physician - When: 2 - 3 days - Reason: Recheck today's complaints, Continuance of care, Re-evaluation by your physician Discharge Instructions: - Discharge Summary Sheet kb - Miscarriage, [id number] kb Forms: - Medication Reconciliation Form kb - Thank You Letter kb - Antibiotic Education kb - Prescription Opioid Use kb Signatures: Dispatcher [employer] Florencia Calle, SLY-C SLY-Sushma Buenrostro, RN RN herbie5 Melanie Vance MD MD sp3
--- NOTE | 2021-03-10 15:14 | ER ---
Nurse's Notes [facility] Name: Yane Viera Age: 26 yrs Sex: Female : 1995 Arrival Date: 03/10/2021 Time: 13:23 Bed 15 Private MD: Diagnosis: Complete or unspecified spontaneous without complication Presentation: 03/10 13:37 Chief complaint: Patient states: 10 weeks and vaginal bleeding and lower abd aa5 cramping that began yesterday. Coronavirus screen: At this time, the client does not indicate any symptoms associated with coronavirus-19. Ebola Screen: No symptoms or risks identified at this time. Initial Sepsis Screen: Does the patient meet any 2 criteria? No. Patient's initial sepsis screen is negative. Does the patient have a suspected source of infection? No. Patient's initial sepsis screen is negative. Risk Assessment: Do you want to hurt yourself or someone else? Patient reports no desire to harm self or others. Onset of symptoms was February 2021. 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 - Social history:: Smoking status: Patient denies any tobacco usage or history of. Screenin:41 Abuse screen: Denies threats or abuse. Denies injuries from another. Nutritional tc5 screening: No deficits noted. Tuberculosis screening: No symptoms or risk factors identified. 15:27 Fall Risk IV access (20 points). Total Chris Fall Scale indicates No Risk (0-24 pts). ll1 Assessment: 14:36 General: Appears in no apparent distress. distressed, comfortable, Behavior is calm, tc5 cooperative, appropriate for age, pt reports she is , and 10 weeks preg, states she began bleeding yesterday and "passed the fetus" called her OB and they told her to come to the ER. Pt denies pain, NAD noted.. Pain: Denies pain. 15:25 Reassessment: No changes from previously documented assessment. Patient and/or family ll1 updated on plan of care and expected duration. Pain level reassessed. Patient is alert, oriented x 3, equal unlabored respirations, skin warm/dry/pink. Vital Signs: 13:38 BP 112 / 60; Pulse 92; Resp 16 S; Temp 98.2(TE); Pulse Ox 99% on R/A; Weight 58.06 kg aa5 (R); Height 5 ft. 1 in. (154.94 cm) (R); 15:25 BP 110 / 74; Pulse 77; Resp 15; Pulse Ox 99% on R/A; ll1 13:38 Body Mass Index 24.19 (58.06 kg, 154.94 cm) aa5 ED Course: 13:23 Patient arrived in ED. mr 13:37 Arm band placed on. aa5 13:38 Triage completed. aa5 13:39 Florencia Weiss FNP-C is [facility]. kb 13:39 Melanie Vance MD is Attending Physician. kb 14:05 Lakisha Ballesteros, ANNITA is Primary Nurse. tc5 14:08 Transvaginal Ob In Process Unspecified. EDMS 14:31 Inserted saline lock: 20 gauge in right antecubital area, using aseptic technique. tc5 ,using aseptic technique. Placed by Quinn TYLER. Blood collected. 15:25 No provider procedures requiring assistance completed. IV discontinued, intact, ll1 bleeding controlled, No redness/swelling at site. Pressure dressing applied. 15:26 Patient has correct armband on for positive identification. Bed in low position. Call ll1 light in reach. Side rails up X 1. Pulse ox on. NIBP on. Administered Medications: No medications were administered Outcome: 15:13 Discharge ordered by . kb 15:25 Discharged to home ambulatory. ll1 15:25 Condition: stable 15:25 Discharge instructions given to patient, Instructed on discharge instructions, follow up and referral plans. Demonstrated understanding of instructions, follow-up care. 15:27 Patient left the ED. ll1 Signatures: Dispatcher [employer] EDMS Florencia Weiss FNP-C FNP-Ckb Rivera, Mary mr Sushma Grubbs, RN RN aa5 Nina Solis, RN RN ll1 Lesli, Lakisha, RN RN tc5
[2021-03-10 15:31] VITALS: TEMP 98.2; O2SAT 99
[2021-03-10 15:33] VITALS: BP 110/74
== END 2021-03-10 15:27 | disposition home or self-care (01) ==
LOC: ER 13:19
DX: O03.9 Complete or unspecified spontaneous abortion without complication (principal)
CPT/HCPCS: 36415; 76817; 80048; 81003; 81025; 84702; 85025; 86900; 86901; 99284

== ENCOUNTER 2024-03-27 05:41 | Emergency (ER) | payer OTHER ==
--- OUTSIDE RECORDS SUMMARY | 2024-03-27 05:44 | XMS REPORT | Continuity of Care Document ---
Author Name Unknown Address [address] [place] [address] [facility] thconnect Address [address] [place] [address] Care Team Providers Care Windshield Repair Technician Name Role Phone KARRIE VALDES Primary Care Physician Unava ilable YASMIN PAGE Attending Clinician Unavailable Yasmin Page DNP Attending Clinician Lakisha Cisse Attending Clinician Unavaila JULIOCESAR Kaminski Attending Clinician Unavailable JULIOCESAR HOUSTON Attending Clinician Unavailable CHELSIE_GCBZW_Joaquina_S Attending Clinician Unavaila ble CHARLETTE_CEEARTEMIO Attending Clinician Unavailable JULIOCESAR HOUSTON Admitting Clinician Unavailable Lakisha Cisse Admitting Clinician Unavaila ble GC_GCBZW_Kadiyala_S Admitting Clinician Unavaila ble Physician, No Primary or Family Admitting Clinic gloria Unavailable CHARLETTE_CEEARTEMIO Admitting Clinician Unavailable Payers Payer Name Policy Type Policy Number Effective Date Expirati on Date Source [facility] [place] STAR [id number] 2011 00:00:00 [place] [facility] [id number] 2018 00:00:00 Problems Condition Name Condition Details Condition Category Status Onset Date Resolution Date Last Treatment Date Treating Clinician Comments Source Nexplanon in place Nexplanon in place Disease Resolve d 08-28 00:00: 00 2024-03-17 00:00:00 2024-03-17 10:54:21 [facility] Breakthrou gh bleeding on Nexplanon Breakthrou gh bleeding on Nexplanon Disease Resolve d 08-28 00:00: 00 2024-03-17 00:00:00 2024-03-17 10:54:20 [facility] Screening for STD (sexually transmitte d disease) Screening for STD (sexually transmitte d disease) Disease Resolve d 08-28 00:00: 2024-03-17 00:00:00 2024-03-17 10:54:23 [facility] Surveillan ce of previously prescribed contracept juan a method Surveillan ce of previously prescribed contracept juan a method Disease Resolve d 08-28 00:00: 2024-03-17 00:00:00 2024-03-17 10:54:24 Overview: Formattin g of this note might be different from the original. 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 [facility] BV (bacterial vaginosis) BV (bacterial vaginosis) Disease Resolve d 08-28 00:00: 00 2015-04-24 00:00:00 2015-04-24 16:26:14 [facility] Insertion of implantabl e subdermal contracept juan a Insertion of implantabl e subdermal contracept juan a Disease Resolve d 4- 00:00: 00 2014-08-28 00:00:00 2021-12-07 00:29:46 [facility] Rubella immune Rubella immune Disease Resolve d 3-21 00:00: 00 2014-08-28 00:00:00 2014-08-28 09:17:35 [facility] Allergies, Adverse Reactions, Alerts Allergy Name Allergy Type Status Severity Reaction(s) Onset Date Inactive Date Treating Clinician Comments Source No Known Allergie s DA Active U - 00:00: 00 [facility] No Known Allergie s DA Active U 8 00:00: 00 [facility] No Known Allergie s DA Active U 2021-05 1-22 00:00: 00 [facility] No Known Allergie s DA Active U 2021-05 0-29 00:00: 00 [facility] No Known Allergie s DA Active U 2017-05 2-28 00:00: 00 [facility] No Known Allergie s DA Active U 2017-05 2-28 00:00: 00 [facility] No Known Allergie s DA Active U 2017-05 0-15 00:00: 00 [facility] No Known Allergie s DA Active U 2016-05 1-13 00:00: 00 [facility] NO KNOWN ALLERGIE S Drug Class Active [facility] Social History Social Habit Start Date Stop Date Quantity Comments Source ASSERTION 2023-04-22 00:00:00 [facility] of tobacco use Cigarette Smoker [facility] Alcoholic beverage intake 2024-03-17 00:00:00 2024-03-17 00:00:00 Current non-drinker of alcohol (finding) [facility] History of Social function 2024-03-17 00:00:00 2024-03-17 00:00:00 [facility] Tobacco use and exposure 2024-03-17 00:00:00 2024-03-17 00:00:00 Smokeless tobacco non-user [facility] Sex assigned at 1995 00:00:00 1995 00:00:00 [facility] Smoking Status Start Date Stop Date Source Never Smoker [facility] Ex-smoker 2024-03-17 00:00:00 2024-03-17 00:00[facility]00 [facility] Medications Ordered Medication Name Filled Medication Name Start Date Stop Date Current Medication? Ordering Clinician Indication Dosage Frequency Signature (SIG) Comments Components Source fluconazole 150 mg tablet 2023-05 00:00: 00 Yes [id number] Take one tablet PO today, then repeat in 72 hours [facility] SERTraline 25 mg tablet 2023-05 00:00: 00 Yes [id number] 25mg Take 1 tablet by mouth in the morning. [facility] BORA 0.35 mg tablet 02-20 00:00: 00 Yes TAKE 1 TABLET BY MOUTH EVERY DAY FOR 90 DAYS [facility] SERTraline 25 mg tablet 02-20 00:00: 00 03-17 00:00 :00 No TAKE 1 TABLET BY MOUTH EVERY DAY FOR 90 DAYS [facility] Nitrofurant oin&Nit. Macrocryst (MACROBID) 100 mg capsule 100 mg 11-20 22:30: 00 11-20 21:49 :00 No 100mg 100 mg, Oral, ONCE, 1 dose, On 11/21/23 at 1730, Routine, Reason for Anti-Infec tive: Documented Infection, Documented Infection Site: Urine, Duration of Therapy: Once (ED) [facility] NaCl 0.9% (NS) IV infusion 1,000 mL 11-20 19:30: 00 Yes 1000mL at 999 mL/hr, IV Infusion, CONTINUOUS , Starting on 11/21/23 at 1430, Until Discontinu ed, Routine, X2 liters [facility] Nitrofurant oin&Nit. Macrocryst 100 mg capsule 11-20 00:00: 00 Yes [id number] 100mg Take 1 capsule by mouth in the morning and 1 capsule in the evening. [facility] HYDROcodone -acetaminop hen 5-325 mg tablet 11-01 00:00: 00 11-20 00:00 :00 No [id number] 05/25 - 05/25 Q4h PRN pain or cough requiring Narcotic [facility] acyclovir (ZOVIRAX) 5 % ointment 06-20 00:00: 00 Yes [id number] Apply to area(s) 5 (five) times daily. [facility] acetaminoph en-codeine (TYLENOL #3) 300-30 mg tablet 2014-05 00:00: 00 11-20 00:00 :00 No 1{tbl} Take 1 Tab by mouth every 6 (six) hours as needed for Pain (scale 4-6). [facility] ORTHO TRI-CYCLEN- 28 (ORTHO TRI-CYCLEN, 28,) 0.18/0.215/ 0.25 mg-35 mcg (28) tablet 12-20 00:00: 00 11-20 00:00 :00 No 1{tbl} Take 1 Tab by mouth daily. [facility] Flagyl 500 mg tablet Take 1 tablet twice a day by oral route for 7 days. Flagyl 500 mg tablet Take 1 tablet twice a day by oral route for 7 days. No 1 BID Flagyl 500 mg tablet Take 1 tablet twice a day by oral route for 7 days. Caity schwartz [facility] Program Immunizations Ordered Immunization Name Filled Immunization Name Date Status Comments Source TDAP 2013-01-10 00:00:00 Completed TDAP Unknown Completed [facility] Vital Signs Vital Name Observation Time Observation Value Comments S ource Systolic blood pressure 2024-03-17 15:29:00 111 mm[Hg] [facility] Diastolic blood pressure 2024-03-17 15:29:00 70 mm[Hg] [facility] Heart rate 2024-03-17 15:29:00 80 /min [facility] Body temperature 2024-03-17 15:29:00 36.78 Laurie [facility] Respiratory rate 2024-03-17 15:29:00 18 /min [facility] Body height 2024-03-17 15:29:00 154.9 cm [facility] Body weight 2024-03-17 15:29:00 68.675 kg [facility] BMI 2024-03-17 15:29:00 28.61 kg/m2 [facility] Oxygen saturation in Arterial blood by Pulse oximetry 2023-11-21 21:00:00 100 /min [facility] Heart rate 2023-11-21 21:00:00 97 /min [facility] Systolic blood pressure 2023-11-21 20:30:00 116 mm[Hg] [facility] Diastolic blood pressure 2023-11-21 20:30:00 65 mm[Hg] [facility] Body temperature 2023-11-21 17:53:00 36.56 Laurie [facility] Respiratory rate 2023-11-21 17:53:00 16 /min [facility] Body height 2023-11-21 17:00:00 154.9 cm [facility] Body weight 2023-11-21 17:00:00 72.576 kg [facility] BMI 2023-11-21 17:00:00 30.23 kg/m2 [facility] BP Diastolic 2019-12-25 00:00:00 67 mm[Hg] [facility] Height 2019-12-25 00:00:00 61 [in_i] [place] [facility] BMI (Body Mass Index) 2019-12-25 00:00:00 21.5 kg/m2 [place] BP Systolic 2019-12-25 00:00:00 110 mm[Hg] [facility] Body Weight 2019-12-25 00:00:00 114 [lb_av] [place] BP Diastolic 2019-07-31 00:00:00 70 mm[Hg] [facility] Height 2019-07-31 00:00:00 61 [in_i] [facility] [facility] BMI (Body Mass Index) 2019-07-31 00:00:00 21.5 kg/m2 [facility] BP Systolic 2019-07-31 00:00:00 121 mm[Hg] [facility] Body Weight 2019-07-31 00:00:00 114 [lb_av] [place] BP Diastolic 2019-01-30 00:00:00 79 mm[Hg] [place] [facility] Height 2019-01-30 00:00:00 61 [in_i] [facility] hernandeza [facility] BMI (Body Mass Index) 2019-01-30 00:00:00 22.5 kg/m2 [facility] BP Systolic 2019-01-30 00:00:00 121 mm[Hg] [facility] Body Weight 2019-01-30 00:00:00 119 [lb_av] [place] Procedures Procedure Date / Time Performed Performing Clinicia n Source [id number] 2024-01-04 00:00:00 [facility] [id number] 2024-01-04 00:00:00 [facility] [id number] 2024-01-04 00:00:00 [facility] AMYLASE 2023-11-21 19:14:00 Juliocesar Houston [facility] LIPASE 2023-11-21 19:14:00 Juliocesar Houston [facility] COMP. METABOLIC PANEL ([id number]) 2023-11-21 19:14:00 Juliocesar Houston [facility] CBC WITH DIFF 2023-11-21 19:14:00 Juliocesar Houston [facility] URINALYSIS 2023-11-21 17:41:00 Juliocesar Houston [facility] ADC ONLY - FERN TEST 2023-11-21 17:41:00 Juliocesar Houston [facility] [id number] 2022-04-15 00:00:00 [facility] [id number] 2022-04-15 00:00:00 [facility] Plan of Care Planned Activity Planned Date Details Comments Source Diagnostic Test Pending 2019-12-25 00:00:00 RPR (rapid plasma reagin), serum [code = RPR (rapid plasma reagin), serum] [facility] Diagnostic Test Pending 2019-12-25 00:00:00 HIV 1+2 AB + HIV 1 p24 Ag, qualitative immunoassay, serum [code = HIV 1+2 AB + HIV 1 p24 Ag, qualitative immunoassay, serum] [facility] Diagnostic Test Pending 2019-12-25 00:00:00 HBsAg (hepatitis B surface Ag), EIA, serum [code = HBsAg (hepatitis B surface Ag), EIA, serum] [facility] Diagnostic Test Pending 2019-12-25 00:00:00 cytology report, thin prep, smear or scraping, cervical or vaginal [code = cytology report, thin prep, smear or scraping, cervical or vaginal] [facility] Encounters Start Date/Time End Date/Time Encounter Type Admission Type Attending Clinicians Care Facility Care Department Encounter ID Source 2023-11-21 17:00:25 Outpatient X [facility] DAHLIA [id number] [facility] 2024-03-31 09:30:00 2024-03-31 09:30:00 Outpatient [facility] [id number] [facility] 2024-03-17 10:15:00 2024-03-17 11:16:22 Outpatient YASMIN [facility]WY[facility] [id number] [facility] 2024-03-17 10:15:00 2024-03-17 11:16:22 [facility] [id number] [facility] 2024-01-04 10:57:00 2024-01-06 12:25:00 Inpatient Lakisha Marinelli OBPP [id number] [facility] 2023-12-25 13:47:00 2023-12-25 14:56:00 Emergency Lakisha Castillo LOPEZ [id number] [facility] 2023-12-23 23:31:00 2023-12-24 02:46:00 Emergency Lakisha Castillo LOPEZ [id number] [facility] 2023-12-22 12:47:00 2023-12-22 12:47:00 Outpatient Lakisha Marinelli [facility] RADI [id number] [facility] 2023-11-21 12:00:00 2023-11-21 16:50:00 Outpatient X JULIOCESAR HOUSTON JULIOCESAR [facility] DAHLIA [id number] [facility] 2023-11-21 12:00:00 2023-11-21 16:50:00 Emergency Juliocesar [facility] .[id number] [facility] 2023-08-30 12:37:00 2023-08-30 12:37:00 Outpatient Lakisha Marinelli [facility] RADI [id number] [facility] 2023-03-21 00:00:00 2023-03-21 00:00:00 Outpatient GC_GCBZW_Ka diyala_S [facility] [id number] [facility] 2022-04-14 21:31:00 2022-04-17 12:22:00 Inpatient Lakisha Castillo [facility] OBPP [id number] [facility] 2022-03-28 02:07:00 2022-03-28 05:38:00 Emergency EM Lakisha Cisse [facility] LOPEZ [id number] [facility] 2022-03-21 13:05:00 2022-03-21 16:44:00 Emergency EM Lakisha Cisse [facility] LOPEZ [id number] [facility] 2021-12-23 09:53:00 2021-12-23 09:53:00 Outpatient EL Lakisha Cisse [facility] RADI [id number] [facility] 2019-12-25 04:05:00 2019-12-25 04:05:00 Outpatient LISTER_MELI [facility] [id number] [facility] 2019-12-25 00:00:00 2019-12-25 00:00:00 Carla Abreu, INTAKE MANAGER: [address], [place] [address] , Ph. 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 [place] [id number] [facility] 2019-12-23 01:03:00 2019-12-23 01:03:00 Outpatient LISTER_MELI [facility] [id number] [facility] 2019-12-19 01:28:00 2019-12-19 01:28:00 Outpatient LISTER_MELI [facility] [id number] [facility] 2019-08-01 02:35:00 2019-08-01 02:35:00 Outpatient LISTER_MELI [facility] [id number] [facility] 2019-07-31 12:17:00 2019-07-31 12:17:00 Outpatient LISTER_MELI [facility] [id number] [facility] 2019-07-31 00:00:00 2019-07-31 00:00:00 Carla Abreu, INTAKE MANAGER: [address], [place] [address] , Ph. [facility] DIESEL TRUCK TECHNICIAN [id number] [facility] 2019-01-30 00:00:00 2019-01-30 00:00:00 Carla Abreu, INTAKE MANAGER: [address], [place] [address] , Ph. [facility] DIESEL TRUCK TECHNICIAN [id number] [facility] Results Test Description Test Time Test Comments Results Result Co mments Source AG HEPATITIS B [id number] 13:17:00* Test Item Value Reference Range Interpretation Comme nts AG HEPATITIS B SURFACE (test code = HBSAG) NONREACTIVE NONREACTIVE AB HEPATITIS C [id number] 13:17:00* Test Item Value Reference Range Interpretation Comme nts AB HEPATITIS C (test code = HCVAB) NONREACTIVE NONREACTIVE SIGNAL TO CUTOFF (test code = CUTOFF) <0.02 <0.80 N AB [id number] 13:17:00* Test Item Value Reference Range Interpretation Comme nts AB TREPONEMA (test code = TREPAB) NONREACTIVE NONREACTIVE AB HIV 1 13:17:00* Test Item Value Reference Range Interpretation Comme nts AB HIV 1 2 (test code = BAC31IY) NONREACTIVE NONREACTIVE Done by [employer] HIV Ag/Ab Combo Screen CBC W/AUTO [id number] 12:11:00* Test Item Value Reference Range Interpretation Comme nts WHITE BLOOD CELL (test code = WBC) 13.7 K/mm3 6.5-12.3 H RED BLOOD CELL (test code = RBC) 4.02 M/mm3 3.51-4.69 N HEMOGLOBIN (test code = HGB) 11.5 g/dL 10.1-13.8 N HEMATOCRIT (test code = HCT) 34.5 % 32.5-41.8 N MEAN CELL VOLUME (test code = MCV) 85.8 fL 84.6-96.6 N MEAN CELL HGB (test code = MCH) 28.6 pg 27.3-33.9 N MEAN CELL HGB CONCETRATION ( test code = MCHC) 33.3 gm/dL 32.0-34.2 N RED CELL DISTRIBUTION WIDTH (test code = RDW) 13.3 % 12.2-16.3 N PLATELET COUNT (test code = PLT) 298 K/mm3 134-363 N MEAN PLATELET VOLUME (test c ode = MPV) 11.2 fL 9.2-12.7 N NEUTROPHIL % (test code = NT%) 76.1 % 57.9-77.3 N LYMPHOCYTE % (test code = LY%) 15.2 % 14.5-29.7 N MONOCYTE % (test code = MO%) 7.3 % 3.6-10.2 N EOSINOPHIL % (test code = EO%) 0.4 % 0.0-3.0 N BASOPHIL % (test code = BA%) 0.3 % 0.1-0.9 N NEUTROPHIL # (test code = NT#) 10.4 K/mm3 LYMPHOCYTE # (test code = LY#) 2.1 K/mm3 MONOCYTE # (test code = MO#) 1.0 K/mm3 EOSINOPHIL # (test code = EO#) 0.05 K/mm3 BASOPHIL # (test code = BA#) 0.0 K/mm3 UA RFLX MICR CULT IF [id number] 00:41:00* Test Item Value Reference Range Interpretation Comme nts UA COLOR (test code = COLU) YELLOW YELLOW UA APPEARANCE (test code = APPU) CLEAR CLEAR UA GLUCOSE DIPSTICK (test co de = DGLUU) NEGATIVE NEG UA BILIRUBIN DIPSTICK (test code = BILU) NEGATIVE NEG UA KETONE DIPSTICK (test cod e = KETU) NEGATIVE NEG UA SPECIFIC GRAVITY (test co de = SGU) 1.010 1.001-1.035 N UA BLOOD DIPSTICK (test code = ZAKI) NEG NEG UA PH DIPSTICK (test code = RUSS) 7.0 5-9 UA PROTEIN DIPSTICK (test co de = PROU) NEGATIVE NEG UA UROBILINIOGEN DIPSTICK (test code = URO) NEGATIVE mg/dL NEG UA NITRITE DIPSTICK (test co de = ANTHONY) NEG NEG UA LEUKOCYTE ESTERASE DIPSTI CK (test code = LEUU) NEG NEG UA WBC (test code = WBCU) 0-2 #/hpf NONE SEEN UA RBC (test code = RBCU) 0-2 #/hpf NONE SEEN UA EPITHELIAL CELLS (test co de = EPIU) RARE #/HPF RARE-FEW UA BACTERIA (test code = BACU) RARE /HPF RARE-FEW UA MUCUS (test code = MUCU) RARE NONE SEEN Indication for culture: Suprapubic PainSpecimen Description: CLEAN CATCH- US PREG AFTER [id number] 07:09:00 [facility] : 1995 Sex: F Patient Name: TIFFANY RUFFIN Unit No: [id number] EXAMS: CPT CODE: [id number] US PREG AFTER TRI 07159 Indication ======== anatomy survey History ====== OB History 6. Para 3 Method ====== Transabdominal ultrasound examination ========= Leslie . Number of fetuses: 1 Dating ====== Date Details Gest. age TABITHA Stated TABITHA 20 w + 4 d 01/13/2024 U/S 08/30/2023 based upon AC, BPD, Femur, HC, Humerus 20 w + 3 d 01/14/2024 Assigned dating based on stated TABITHA, selected on08/30/2023 20 w + 4 d 01/13/2024 General Evaluation Cardiac activity present. FHR 149bpm. movements: visualized. Presentation: Variable Placenta: Placental site: no previa, Grade1, anterior Umbilical cord: Cord vessels: 3 vessel cord, normal insertion, normal, 3 vessel cord Amniotic fluid: Amount of AF: normal, normal Biometry BPD 45.4 mm 19w 5d 17% Hadlock HC 175.5 mm 20w 0d 20% Hadlock AC 151.5 mm 20w 3d 37% Hadlock Femur 34.3 mm 20w 6d 49% Hadlock Humerus 32.8 [facility] NAME: TIFFANY RUFFIN Radiology Department PHYS: Lakisha Pierre MD [address] : 1995 AGE: 28 SEX: F [place], [place] [address] LOC: F.RAD PHONE #: [phone] EXAM DATE: 08/30/2023 STATUS: DEP CLI FAX #: [phone] RAD NO: Page 1 Signed Report (CONTINUED) Patient Name: TIFFANY RUFFIN Unit No: [id number] EXAMS: CPT CODE: [id number] US PREG AFTER 1ST TRI 40433 (Continued) mm 21w 0d 67% Brian HC / AC 1.16 51% HadlockFetal Weight Calculation: EFW 357 g 20w 3d 40% Hadlock EFW (lb,oz) 0 lb 13 oz EFW by Hadlock ([id number]) Head / Face / Neck Biometry: Cephalic index 0.69 <1% Nicolaides Extremities / Bony Struc Biometry: FL / BPD 0.76 86% Hadlock FL / HC 0.20 85% Hadlock FL / AC 0.23 67% Hadlock Anatomy The following structures appear normal: Head / Neck Cranium. Lateral ventricles. Choroid plexus. Midline falx. Cavum septi pellucidi. Cerebellum. Cisterna magna. Face Lips. Profile. Nose. Nasal bone. Orbits. Heart / Thorax 4-chamber view. RVOT view. LVOT view. 3-vessel view. Abdomen Cord insertion. Stomach: left-sided. Kidneys. Bladder. Genitals. Spine Cervical spine. Thoracic spine. Lumbar spine. Sacral spine. The following structures were visualized: Extremities / Skeleton Arms. Hands. Legs. Feet. sex: . Maternal Structures Cervix Visualized Cervical length 3.6 cm Right Ovary Visualized Size 2.7 cm x 1.9 cm x 1.6 cm. Vol 4.3 cm Left Ovary Visualized Size [facility] NAME: TIFFANY RUFFIN Radiology Department PHYS: Lakisha Pierre MD [address] : 1995 AGE: 28 SEX: [place] [address] LOC: Janes.RAD PHONE #: [phone] EXAM DATE: 08/30/2023 STATUS: DEP CLI FAX #: [phone] RAD NO: Page 2 Signed Report (CONTINUED) Patient Name: TIFFANY RUFFIN Unit No: [id number] EXAMS: CPT CODE: [id number] US PREG AFTER 1ST TRI 88307 (Continued) 2.8 cm x 2.3 cm x 2.1 cm. Vol 7.0 cm Cyst(s) Size 2.1 cm x 1.1 cm x 1.8 cm. Mean 1.67 cm. Vol 2.177 cm Impression ========= weight percentile is 40%. No anomalies visualized. at 0709 Reported and signed by: Mata Baker MD CC: Lakisha Cisse MD Technologist: Janae Kennedy RDMS Probe: Trnscrbd D/ (0709) GCD.CPS Orig Print D/T: S: 09/01/2023 (0709) [facility] NAME: TIFFANY RUFFIN Radiology Department PHYS: Lakisha Pierre MD [address] : 1995 AGE: 28 SEX: [place] [address] LOC: Jnaes.RAD PHONE #: [phone] EXAM DATE: 08/30/2023 STATUS: DEP CLI FAX #: [phone] RAD NO: Page 3 Signed Report Patient Name: TIFFANY RUFFIN Unit No: [id number] EXAMS: CPT CODE: [id number] US PREG AFTER 1ST TRI 71117 (Continued) [facility] NAME: AUGUSTINTIFFANY Radiology Department PHYS:Lakisha Pierre MD [address] : 1995 AGE: 28 SEX: F [place], [place] [address] LOC: MargaritoRAD PHONE #: [phone] EXAM DATE: 08/30/2023 STATUS: DEP CLI FAX #: [phone] RAD NO: Page 4 Signed ReportHGB [id number] 04:46:00* Test Item Value Reference Range Interpretation Comme nts HEMOGLOBIN (test code = HGB) 9.7 g/dL 10.1-13.8 L HEMATOCRIT (test code = HCT) 30.3 % 32.5-41.8 L AG HEPATITIS B [id number] 00:01:00* Test Item Value Reference Range Interpretation Comme nts AG HEPATITIS B SURFACE (test code = HBSAG) NONREACTIVE NONREACTIVE AB HEPATITIS C [id number] 00:01:00* Test Item Value Reference Range Interpretation Comme nts AB HEPATITIS C (test code = HCVAB) NONREACTIVE NONREACTIVE SIGNAL TO CUTOFF (test code = CUTOFF) 0.12 <0.80 N RUBELLA [id number] 00:01:00* Test Item Value Reference Range Interpretation Comme nts RUBELLA SCREEN (test code = RUBSC) 174.3 IUnit/ml Results >10.0IUn its/ml are considered positive inaccordance with the CLSI guidelines and based on the WHO International Standard for Anti-Rubella serum as anindicator of immune status and a breakpoint to detect mostseropositive persons. AB [id number] 00:01:00* Test Item Value Reference Range Interpretation Comme nts AB TREPONEMA (test code = TREPAB) NONREACTIVE NONREACTIVE AB HIV 1 00:01:00* Test Item Value Reference Range Interpretation Comme nts AB HIV 1 2 (test code = IEN43EA) NONREACTIVE NONREACTIVE Done by [employer] HIV Ag/Ab Combo Screen CBC W/AUTO [id number] 23:42:00* Test Item Value Reference Range Interpretation Comme nts WHITE BLOOD CELL (test code = WBC) 19.4 K/mm3 6.5-12.3 H RED BLOOD CELL (test code = RBC) 4.00 M/mm3 3.51-4.69 N HEMOGLOBIN (test code = HGB) 11.1 g/dL 10.1-13.8 N HEMATOCRIT (test code = HCT) 35.0 % 32.5-41.8 N MEAN CELL VOLUME (test code = MCV) 87.5 fL 84.6-96.6 N MEAN CELL HGB (test code = MCH) 27.8 pg 27.3-33.9 N MEAN CELL HGB CONCETRATION ( test code = MCHC) 31.7 gm/dL 32.0-34.2 L RED CELL DISTRIBUTION WIDTH (test code = RDW) 14.6 % 12.2-16.3 N PLATELET COUNT (test code = PLT) 290 K/mm3 134-363 N MEAN PLATELET VOLUME (test c ode = MPV) 11.7 fL 9.2-12.7 N NEUTROPHIL % (test code = NT%) 78.2 % 57.9-77.3 H LYMPHOCYTE % (test code = LY%) 14.5 % 14.5-29.7 N MONOCYTE % (test code = MO%) 5.4 % 3.6-10.2 N EOSINOPHIL % (test code = EO%) 0.4 % 0.0-3.0 N BASOPHIL % (test code = BA%) 0.3 % 0.1-0.9 N NEUTROPHIL # (test code = NT#) 15.2 K/mm3 LYMPHOCYTE # (test code = LY#) 2.8 K/mm3 MONOCYTE # (test code = MO#) 1.1 K/mm3 EOSINOPHIL # (test code = EO#) 0.07 K/mm3 BASOPHIL # (test code = BA#) 0.1 K/mm3 RBC MORPHOLOGY REQUIRED (be t code = RBCM) NORMAL NORMAL PLATELET MORPHOLOGY REQUIRED (test code = PLTMR) NORMAL NORMAL URINALYSIS [id number] 16:42:00* Test Item Value Reference Range Interpretation Comme nts UA COLOR (test code = COLU) YELLOW YELLOW UA APPEARANCE (test code = APPU) CLEAR CLEAR UA GLUCOSE DIPSTICK (test co de = DGLUU) NEGATIVE NEG UA BILIRUBIN DIPSTICK (test code = BILU) NEGATIVE NEG UA KETONE DIPSTICK (test cod e = KETU) NEGATIVE NEG UA SPECIFIC GRAVITY (test co de = SGU) 1.011 1.001-1.035 N UA BLOOD DIPSTICK (test code = ZAKI) NEG NEG UA PH DIPSTICK (test code = RUSS) 8.0 5-9 UA PROTEIN DIPSTICK (test co de = PROU) NEGATIVE NEG UA UROBILINIOGEN DIPSTICK (test code = URO) NEGATIVE mg/dL NEG UA NITRITE DIPSTICK (test co de = ANTHONY) NEG NEG UA LEUKOCYTE ESTERASE DIPSTI CK (test code = LEUU) NEG NEG UA WBC (test code = WBCU) 0-2 #/hpf NONE SEEN UA RBC (test code = RBCU) 0-2 #/hpf NONE SEEN UA EPITHELIAL CELLS (test co de = EPIU) RARE #/HPF RARE-FEW UA MUCUS (test code = MUCU) RARE NONE SEEN URINE SAMPLE: CLEAN CATCHURINALYSIS [id number] 14:09:00* Test Item Value Reference Range Interpretation Comme nts UA COLOR (test code = COLU) YELLOW YELLOW UA APPEARANCE (test code = APPU) CLEAR CLEAR UA GLUCOSE DIPSTICK (test co de = DGLUU) NEGATIVE NEG UA BILIRUBIN DIPSTICK (test code = BILU) NEGATIVE NEG UA KETONE DIPSTICK (test cod e = KETU) 1+ NEG A UA SPECIFIC GRAVITY (test co de = SGU) 1.011 1.001-1.035 N UA BLOOD DIPSTICK (test code = ZAKI) NEG NEG UA PH DIPSTICK (test code = RUSS) 7.0 5-9 UA PROTEIN DIPSTICK (test co de = PROU) NEGATIVE NEG UA UROBILINIOGEN DIPSTICK (test code = URO) NEGATIVE mg/dL NEG UA NITRITE DIPSTICK (test co de = ANTHONY) NEG NEG UA LEUKOCYTE ESTERASE DIPSTI CK (test code = LEUU) NEG NEG UA WBC (test code = WBCU) 3-5 #/hpf NONE SEEN A UA EPITHELIAL CELLS (test co de = EPIU) RARE #/HPF RARE-FEW UA BACTERIA (test code = BACU) RARE /HPF RARE-FEW UA MUCUS (test code = MUCU) RARE NONE SEEN URINE SAMPLE: CLEAN CATCH- US PREG AFTER [id number] 00:00:00 [facility] 1995 Sex: F Patient Name: TIFFANY RUFFIN Unit No: [id number] EXAMS: CPT CODE: [id number] US PREG AFTER 1ST TRI 96227 PROCEDURE INFORMATION: Exam: US After First Trimester, Transabdominal Exam date and time: 12/23/2021 10:15 AM Age: 26 years old Clinical indication: Screening exam; Routine US, uterus; Additional info: Anatomy LABS AND CLINICAL REPORTS: Last menstrual period start date: 08/01/2021 Estimated due date (Established): 05/08/2022 TECHNIQUE: Imaging protocol: Real- time transabdominalobstetrical ultrasound of the maternal pelvis and a second or third trimester with image documentation. COMPARISON: OT US PREG AFTER 1ST TRI 02/07/2018 11:39 AM FINDINGS: LMP: 08/01/2021 GA by LMP/Known TABITHA: 20 weeks 4 days GA by current US: 20 weeks 0 days TABITHA based on current exam: 2021 Measurements: BPD: 4.42 cm /GA 19 weeks 3 days, [place] HC: 17.00 cm /GA 19 weeks 4 days, [place] AC: 15.97 cm /GA 21 weeks 1 day, [place] FL: 3.17 cm /GA 19 weeks 6 days, [place] HL: 3.04cm /GA 20 weeks 0 days, Brian Ratios: FL/BPD : 71.70 FL/AC : 19.82, Range: (20-24) HC/AC : 1.06, Range : (1.08-1.25) CI : 71.98, Range : (70-86) weight estimate: Weight: 350.24 grams, [place] Weight: 0 lbs, 12 oz Heart rate: 136 bpm Clinical Summary: Type of Gestation: Leslie. Intrauterine in breech presentation. motion and organs seen: heart motion seen. [facility] NAME: JASPAL RUFFINYLYNN Radiology Department PHYS: Lakisha Pierre MD [address] : 1995 AGE: 26 SEX: F [place] [address] LOC: Janes.RAD PHONE #: [phone] EXAM DATE: 12/23/2021 STATUS: REG CLI FAX #: [phone] RAD NO: Page 1 Signed Report (CONTINUED) Patient Name: TIFFANY RUFFIN Unit No: [id number] EXAMS: CPT CODE: [id number] US PREG AFTER 1ST TRI 73676 (Continued) body and limb movements seen. Four chamber heartobserved. Left ventricular outflow tract (LVOT) seen. Right ventricular outflow tract (RVOT) seen. Normal intracranial anatomy seen. face and nasal bone seen. Umbilical cord insertion in fetus seen. stomach, Renal fossa, Bladder and Spine seen. Three vessel umbilical cord noted. ab normalities observed: None seen at this exam. Placenta location: Anterior. Placenta maturity: Grade1. There is no evidence of placenta previa. Amniotic fluid volume is adequate. Uterus and adnexa: No significant abnormality is seen. Maternal Anatomy: Cervical length: 3.5 cm IMPRESSION: Single liveintrauterine gestation. at 1127 Reported and signed by: Mata Baker MD CC: Lakisha Cisse MD Technologist: Gwen Kelly RDMS Probe: Trnscrbd D/ (1127) GCD.CPS Orig Print D/T: S: 12/23/2021 (1127) [facility] NAME: JASPAL RUFFINYLYNN Radiology Department PHYS: Lakisha Pierre MD [address] : 1995 AGE: 26 SEX: F [place] [address] LOC: MargaritoRAD PHONE #: [phone] EXAM DATE: 12/23/2021 STATUS: REG CLI FAX #: [phone] RAD NO: Page 2 Signed Report Patient Name: TIFFANY RUFFIN Unit No: [id number] EXAMS: CPT CODE: [id number] US PREG AFTER 1ST TRI 24554 (Continued) [facility] NAME: TIFFANY RUFFIN Radiology Department PHYS: Lakisha Winter MD [address] : 1995 AGE: 26 SEX: F [place], [place] [address] LOC: MargaritoRAD PHONE #: [phone] EXAM DATE: 12/23/2021 STATUS: REG CLI FAX #: [phone] RAD NO: Page 3 Signed Report Urinalysis macro (dipstick) panel - [id number] 10:51:00* Test Item Value Reference Range Interpretation Comme nts Leukocytes (test code = Leukocytes) trace Nitrite (test code = Nitrite) negative Urobilinogen (test code = Urobilinogen) 0.2 Protein (test code = Protein) negative pH (test code = pH) 7.5 Blood (test code = Blood) trace-lysed Specific [place] (test code = Specific [place]) 1.020 Ketone (test code = Ketone) negative Bilirubin (test code = Bilirubin) negative Glucose (test code = Glucose) negative Appearance (test code = Appearance) clear Color (test code = Color) yellow [facility] Notes Date/Time Note Provider Source 2024-01-05 13:02:00 [facility] OB Disch REPORT#:[id number] REPORT STATUS: Signed REPORT INITIALIZATION DATE:01/05/24 TIME: 1302 PATIENT: TIFFANY RUFFIN UNIT #: [id number] ROOM/BED: 6- : [birth year] AGE: 28 SEX: F ATTEND: Lakisha Cisse MD ADM AUTHOR: Lakisha Cisse MD REPT SERVICE DT/TIME: 01/05/24 1302 * ALL edits or amendments must be made on the electronic/computer document * Subjective Subjective Admission EGA: Weeks: 39 Days: 0 EGA at delivery (wks/days): 39 weeks Status/day: post Patient reports: Patient reports: Yes: normal lochia, pain management effective, tolerating po well, voiding well, flatus, bowel movement. No: complaints. Objective General VS: Vital Signs Date Temp Pulse Resp B/P B/P Mean Pulse Ox FiO2 01/03-01/04 97.7-98.5 72-169 16-18 93-128/50-74 69.0-92.0 91-98 Last Documented: Result Date Time B/P Mean 80.0 01/04 0748 Pulse Ox 98 01/04 0748 B/P 103/68 01/04 0748 Temp 97.8 01/04 0748 Pulse 72 01/04 0748 Resp 18 01/04 0748 PATIENT WEIGHT: Weight (lb): 132 Weight (oz): Weight (kg): 60.000 Physical Exam Cardiac: normal rhythm Lungs: clear to auscultation Neuro: Exam: alert, oriented x3 Abdomen: post gravid, soft, no abnormal tenderness Fundus: firm, below the umbilicus, non-tender Lochia: normal Lower extremities: Edema: none Calf tenderness: negative Results Findings/Data: Laboratory Tests: 01/04 01/03 0617 1146 Hematology WBC (6.5 - 12.3 K/mm3) 13.7 H RBC (3.51 - 4.69 M/mm3) 4.02 Hgb (10.1 - 13.8 g/dL) 11.8 11.5 Hct (32.5 - 41.8 %) 35.6 34.5 MCV (84.6 - 96.6 fL) 85.8 MCH (27.3 - 33.9 pg) 28.6 MCHC (32.0 - 34.2 gm/dL) 33.3 RDW (12.2 - 16.3 %) 13.3 Plt Count (134 - 363 K/mm3) 298 MPV (9.2 - 12.7 fL) 11.2 Neut % (Auto) (57.9 - 77.3 %) 76.1 Lymph % (Auto) (14.5 - 29.7 %) 15.2 [place] % (Auto) (3.6 - 10.2 %) 7.3 Eos % (Auto) (0.0 - 3.0 %) 0.4 Baso % (Auto) (0.1 - 0.9 %) 0.3 Neut # (Auto) (K/mm3) 10.4 Lymph # (Auto) (K/mm3) 2.1 [place] # (Auto) (K/mm3) 1.0 Eos # (Auto) (K/mm3) 0.05 Baso # (Auto) (K/mm3) 0.0 Serology Treponema pallidum Ab (NONREACTIVE) NONREACTIVE Hep Bs Antigen (NONREACTIVE) NONREACTIVE Hepatitis C Antibody (NONREACTIVE) NONREACTIVE Hep C Ab Signal/Cutoff (<0.80) <0.02 HIV 1 2 Antibody (NONREACTIVE) NONREACTIVE Treatments Procedures Treatments Procedures: DISCHARGE SUMMARY Admit Date: [01/04/2024] Discharge Date: [01/06/2024] Attending MD: [Lakisha Cisse] Final Diagnoses: 1. [term ] 2. s/p [NVD] 3. Benign course HPI: This is a [28 yo]. For more information, please refer to the admission note. Hospital course: The patient was admitted and begun on IVF and EFM. Labor course , delivery, information about : [see delivery note]. The patient was taken to the unit in stable condition. Her course was uncomplicated and she was sent home with the ability to ambulate, spontaneously void, and eat without difficulty. Pt chose [will decide at pospartum visit] as contraception. Hgb was [11`.8] and Hgb was [11.5 ]. There were no signs or symptoms of infection or hemorrhage at time of discharge. Disposition: The patient was discharged home on PPD/POD [#1] with instructions to limit heavy lifting to <15 lb for 2 weeks, insert nothing in the vagina for 6 weeks including tampons, intercourse, and douching, and to not drive while using narcotics. Pt was advised to call her MD for T>100.4, increased vaginal bleeding >1 pad/hr, foul lochia, increased breast tenderness or redness, shortness of breath or chest pain, increased incisional pain, redness, or discharge), increased abdominal pain or leg pain, or any other concerns. Patient was sent home on a regular diet. Discharge medications included [Ibuprofen and vitamins]. Pt advised to follow up in 2 weeks time as well as in 6 weeks time for her check with her physician Discharge Summary General Problem List/A P: 1. Delivery outcome of single liveborn 2. Term delivered 3. Term Free Text A P: s/p NVD Assessment: nml progress Date of admission: Date of admission: 01/04/24 Admission diagnosis: induction-term elective Hospital course: spontaneous vag delivery Procedures: epidural anesthesia, spontaneous vaginal deliv Discharge condition: stable Discharge to: Home/Self Care Discharge diagnosis: full-term uncomp delivery Discharge management: greater than 30 mins Time spent: Time spent with patient (minut 35 >50% spent on counseling/coordination of care: yes Baby A: Vaginal delivery: spontaneous status: live born Gender: female 1 minute: 8 5 minutes: 9 Anomalies: none Nursing data: The data set between the solid lines has been imported from nursing documentation. Any exceptions have been noted below under Provider comments. Delivery date A: 01/04/24 Delivery time infant A: 2102 Birthweight (gm) infant A: 3190 Feeding preference: Gender A: Female 1 minute A: 5 minutes A: 10 minutes infant A: Provider comments on imported nursing data: [] Plan: routine care, discharge tomorrow Vaginal packing at delivery: No Discharge Instructions Instructions: routine instr sheet given, instr and warnings rev'd Diet: Regular Activity: No Strenuous Activity Additional discharge routines: Attending Follow-Up Immunizations given: Tdap Contraception discussed: abstinence for 4-6 weeks, will discuss at PP visit Discharge meds: Continue taking these medications: PNV/FE FUM/FA ( MULTIVITAMIN) 1 TAB TAB 1 TABLET ORAL DAILY. IRON/FA/B12/C/DOCUSATE SODIUM (FERRALET 90) 1 EACH TAB 1 TABLET ORAL DAILY. Qty = 30 OMEPRAZOLE/SOD BICARB MG (ZEGERID MG) 40 MG-1,680 MG PACKET 40 MILLIGRAM ORAL DAILY. Start taking the following new medications: IBUPROFEN (MOTRIN) 600 MG TAB 600 MILLIGRAM ORAL EVERY 6 HOURS NEEDED. as needed for PAIN SCALE 1-3 ( USE 1ST) Qty = 40 Refills = 1 Prescriptions: e-prescribe Rx drug database reviewed: yes Consultation(s): Consultation performed: anesthesia Reason for consultation: epidural Add'l Follow-up Appointments Attending Physician: Attending Physician: Lakisha Cisse MD Phone: [phone] Attending physician follow up timeframe: In 5-6 weeks at 1309 RPT #:[id number] END OF REPORT [facility] 2024-01-05 12:54:00 [facility] OB Postpart Progr Note REPORT#:[id number] REPORT STATUS: Signed REPORT INITIALIZATION DATE:01/05/24 TIME: 1253 PATIENT: TIFFANY RUFFIN UNIT #: [id number] ROOM/BED: [address] : [birth year] AGE: 28 SEX: F ATTEND: Lakisha Cisse MD ADM AUTHOR: Lakisha Cisse MD REPT SERVICE DT/TIME: 01/05/24 1254 * ALL edits or amendments must be made on the electronic/computer document * Subjective Subjective Admission EGA: Weeks: 39 Days: 0 EGA at delivery (wks/days): 39 weeks Status/Day: post Patient reports: Patient reports: Yes normal lochia, Yes pain management effective, Yes tolerating po well, Yes voiding well, Yes flatus, Yes bowel movement, No no complaints Objective Nursing Documentation Review Nursing Data: The data set between the solid lines has been imported from nursing documentation. Any exceptions have been noted below under Provider comments. Feeding preference: Post hemorrhage risk score: LowRisk Provider comments on imported nursing data: [] General VS: Vital Signs: Date Time Temp Pulse Resp B/P B/P Pulse O2 O2 Flow FiO2 Mean Ox Delivery Rate 01/04 0748 80.0 01/04 0748 97.8 72 18 103/68 98 01/04 0417 98.0 86 18 103/63 98 01/03 2330 89.0 01/03 2330 98.5 95 18 120/74 97 01/03 2229 78.0 01/03 2229 90 123/54 01/03 2214 85.0 01/03 2214 169 115/59 01/03 2159 76.0 01/03 2159 87 114/59 01/03 2144 82.0 01/03 2144 94 115/58 01/03 2129 85.0 01/03 2129 105 109/71 01/03 2115 18 01/03 2114 76.0 01/03 2114 100 115/56 01/03 2106 83.0 08/13 2106 93 123/ /2051 87.0 /2051 103 128/62 01/04 2036 87.0 /2035 82 125/65 /2020 92.0 /2020 84 127/70 01/03 2006 82.0 08/2005 84 115/57 08/ 1953 80.0 08/ 195 80 118/56 / 1936 84.0 / 1936 83 120/60 / 1922 77.0 08/ 1922 83 111/53 / 1915 98.4 16 / 1906 75.0 / 1906 82 106/55 08/ 1852 82.0 / 1852 81 114/57 / 1836 81.0 / 1836 86 113/58 / 1820 82.0 / 1820 85 110/65 / 1819 97.7 83 18 91 / 1816 85 98 / 1815 79.0 01/03 1815 82 113/58 / 1811 85 98 / 1810 75.0 / 1810 80 103/59 08/13 1807 71.0 01/03 1807 81 97/56 / 1806 84 98 / 1804 78.0 01/03 1804 89 102/59 / 1801 77.0 01/03 1801 87 103/57 97 / 1759 69.0 / 1759 93 93/50 / 1754 76.0 01/03 1754 103 106/58 /13 1443 77.0 / 1443 90 114/58 08/ 1442 98.5 18 PATIENT WEIGHT: Weight (lb): 132 Weight (oz): Weight (kg): 60.000 Physical Exam Cardiac: normal sinus rhythm Lungs: clear to auscultation Neuro: Exam: alert, oriented x3 Abdomen: soft, no abnormal tenderness Fundus: firm, below the umbilicus, non-tender Lochia: normal Lacerations: Perineal laceration(s): none High vaginal laceration: no Lower extremities: Edema: none Calf tenderness: negative Result Findings/Data: Laboratory Tests: 01/04 617 Hematology Hgb (10.1 - 13.8 g/dL) 11.8 Hct (32.5 - 41.8 %) 35.6 Results: labs reviewed Diagnosis, Assessment Plan Diagnosis, Assessment Plan Problem List/A P: 1. Delivery outcome of single liveborn infant 2. Term delivered Free text A P: s/p NVD - recovering well Assessment: nml progress Plan: routine care, discharge tomorrow Consultation(s): Consultation performed: anesthesia Reason for consultation: epidural Plan discussed with: patient Time spent: Time spent on patient care (minutes): 30 >50% spent on counseling/coordination of care: yes at [facility] RPT #:[id number] END OF REPORT [facility] 2024-01-04 21:10:00 [facility] OB Delivery Note REPORT#:[id number] REPORT STATUS: Signed REPORT INITIALIZATION DATE:01/04/24 TIME: 2109 PATIENT: TIFFANY RUFFIN UNIT #: [id number] ROOM/BED: [address] : [birth year] AGE: 28 SEX: F ATTEND: Lakisha Cisse MD ADM AUTHOR: Lakisha Cisse MD REPT SERVICE DT/TIME: 01/04/242109 * ALL edits or amendments must be made on the electronic/computer document * OB Delivery Nursing Documentation Review Nursing data: The data set between the solid lines has been imported from nursing documentation. Any exceptions have been noted below under Provider comments. _ ROM date: 01/04/24 ROM time: 1440 Membranes rupture method: AROM Amniotic fluid color: Clear Amniotic fluid amount: Steroids prior to arrival: Antibiotic prophylaxis given: Post hemorrhage risk score: Delivery date A: Delivery time infant A: Birthweight (gm) A: Weight (lb) A: Weight (oz) infant A: Gender A: Female 1 minute A: 5 minutes A: 10 minutes infant A: Cord pH obtained A: Vacuum time A: Vacuum # pulls A: Vacuum # popoffs infant A: QBL at delivery: __ Provider comments on imported nursing data: [] Pre-delivery GBS status: GBS status: negative evaluation at delivery: NRP certified personnel Admission EGA: Weeks: 39 Days: 0 EGA at delivery (wks/days): 39 weeks Admission indication: elective Blood Loss/Details Blood loss at delivery: <1K: no sx hypovol=no hem, no more than expected Baby A Information Baby A information Delivery date: 01/04/24 Delivery time: 2101 status: live born Wt of baby: not yet available Gender: female 1 minute: 8 5 minutes: 9 Presentation: vertex Anomalies: none ABG details Baby A Cord blood gases: not collected Nuchal cord Baby A Nuchal cord: yes (loose and reduced) Anomalies: none Vaginal Delivery Vaginal Delivery Vaginal delivery: Labor: induced Medications/Devices used: oxytocin Vaginal delivery: spontaneous Amniotic fluid: clear Anesthesia type: epidural anesthesia Episiotomy: none Episiotomy repair: no Laceration repair: no Placenta: spontaneous, expressed, intact Post delivery meds used: oxytocin Count: correct, vag exam neg for sponges Vaginal packing: No Mother's condition: mother stable Infant's condition: infant stable in room Lacerations: Perineal laceration(s): none High vaginal laceration: no Extraction details OVD performed: no Shoulder dystocia present: no Fundal pressure applied: no Note dictated: No Additional comments: Patient admitted for IOL. Pitocin induction and progressed in normal fashion to complete. Pusehed x 5 minures anddelivered head OA. CAN x1 reduced after delivery of head. Ant/post shouders and body delivered with ease. passed meconium after delivery. nose/mouth suctioned and placed o maternal abdomen for skin to kin. had spontaneous cry, RR, HR, color and tone. after 60 secdelay cord clamped and cut by Dad. Cord blood collected. Placenta delivered intact. Uetrine cavity empty. Uterus firm with massage/IV pitocin. no lacerations of cervix, sidewall or perineum. Infant/mom tolerated delivery well. All lap and instrument counts correct x2. All present please with outcome foe Baby Aria. at 2116 RPT #:[id number] END OF REPORT [facility] 2024-01-04 19:33:00 [facility] Clinical Note REPORT#:[id number] REPORT STATUS: Signed REPORT INITIALIZATION DATE:01/04/24 TIME: 1932 PATIENT: TIFFANY RUFFIN UNIT #: [id number] [facility] AGE: 28 SEX: F ATTEND: Lakisha Cisse MD ADM AUTHOR: Love Krishnan MD REPT SERVICE DT/TIME: 01/04/241932 * ALL edits or amendments must be made on the electronic/computer document * Clinical Note Note: Asked to place IUPC. SVE 50/-3. Placed in usual fashion without difficulty. Patient tolerated well. at 1933 RPT #:[id number] END OF REPORT [facility] 2024-01-04 14:43:00 [facility] OB Admission / H P REPORT#:[id number] REPORT STATUS: Signed REPORT INITIALIZATION DATE:01/04/24 TIME: 3 PATIENT: TIFFANY RUFFIN UNIT #: [id number] ROOM/BED: 036-A : 97 AGE: 28 SEX: F ATTEND: Lakisha Cisse MD ADM AUTHOR: Lakisha Cisse MD REPT SERVICE DT/TIME: 01/04/24 1443 * ALL edits or amendments must be made on the electronic/computer document * OB History Nursing Documentation Review Nursing data: The data set between the solid lines has been imported from nursing documentation. Any exceptions have been noted below under Provider comments. Current data Steroids prior to arrival: ROM date: ROM time: EDC date: 01/11/24 Gestational age (labor triage): Post hemorrhage risk score: Prior history : 6 Para: 3 Term: : Abortions spontaneous: Abortions induced: Living children: Ectopic: Stillbirths: Live births: deaths: Number of previous C/S: Reported maternal labs/data Blood type: Rh type: Positive Rubella: Hepatitis B: HIV exposure test: Negative VDRL: Group B beta strep: Negative Rho(D) immune globulin this preg: Monitor mode - UA: Feeding preference: Provider comments on imported nursing data: [] Chief complaint: scheduled induction HPI: 28 yo LAF @ 39 weeks presents for elective induction at patient request. GBS(-). history: : 6 Term: 3 : 0 Abortus: 2 Living children: 3 Complications (prev preg): none Previous : none Current : Best EDC: 01/11/24 Admission EGA (weeks) 39 Admission EGA (days) 0 EDC based on: ultrasound, 1st trimester Conditions of : anemia Labs: Blood type: O Rh: positive Rubella: immune Hepatitis B: negative HIV: negative STD: negative Syphilis: currently negative GBS: negative Procedures: none Genetic testing: cystic fibrosis, Down syndrome, Fragile X, neural tube defect, sickle cell disease, thalassemia Past History Additional Medical History: Denies. Additional Surgical History: Denies. Additional Family History Denies. Alcohol Use Denies EtOH use Drug Use Denies recreational drugs Smoking status for patients 13 years old or older: Never Smoker Allergies: Coded Allergies: No Known Allergies (01/04/24) Review of Systems All systems rev neg: except as marked Objective General VS: Last Documented: Result Date Time B/P Mean 78.0 01/03 1130 B/P 109/60 01/03 1130 Temp 98.7 01/03 1130 Pulse 96 01/03 1130 Resp 18 01/03 1130 Vital Signs Date Temp Pulse Resp B/P B/P Mean Pulse Ox FiO2 01/03 98.7-98.8 96 18 109/60 78.0 PATIENT WEIGHT: Weight (lb): 132 Weight (oz): Weight (kg): 60.000 Physical Exam HEENT: normocephalic w/o injury Cardiac: regular rate and rhythm Lungs: clear to auscultation Neuro: Exam: alert, oriented x3 Abdomen: gravid, soft Musculoskeletal: normal inspection Uterine activity: Monitor: toco Frequency (description): irregular Frequency (minutes): 4 Duration (seconds): 60 Intensity: mild Resting tone: relaxed Pelvic exam: Pelvis clinically adequate: yes, inlet appears appropriate, pubic bone config appropr, no midpelvic contraction Vulvar lesions: none Vagina: normal Exam: soft, approp size for gest age Cervical/ exam: Dilatation (cm): 3 Effacement (%): 60 Est wt (gms): 3200 Suspected macrosomia: No Suspected >/= 4500 grams No Suspected >/= 5000 grams: No station: - 2 Membranes: Membranes: AROM ROM date: 01/04/24 ROM time: 1440 Amniotic fluid: clear Odor: none Amount: small Lower extremities: Edema: none Calf tenderness: negative Baby A: Baby A baseline: 140 bpm Baby A variability: moderate 6-25 bpm Baby A accelerations: 15 X 15 Baby A decelerations: none Baby A FHR category: category 1 Results Findings/Data: Laboratory Tests: 01/03 1146 Hematology WBC (6.5 - 12.3 K/mm3) 13.7 H RBC (3.51 - 4.69 M/mm3) 4.02 Hgb (10.1 - 13.8 g/dL) 11.5 Hct (32.5 - 41.8 %) 34.5 MCV (84.6 - 96.6 fL) 85.8 MCH (27.3 - 33.9 pg) 28.6 MCHC (32.0 - 34.2 gm/dL) 33.3 RDW (12.2 - 16.3 %) 13.3 Plt Count (134 - 363 K/mm3) 298 MPV (9.2 - 12.7 fL) 11.2 Neut % (Auto) (57.9 - 77.3 %) 76.1 Lymph % (Auto) (14.5 - 29.7 %) 15.2 [place] % (Auto) (3.6 - 10.2 %) 7.3 Eos % (Auto) (0.0 - 3.0 %) 0.4 Baso % (Auto) (0.1 - 0.9 %) 0.3 Neut # (Auto) (K/mm3) 10.4 Lymph # (Auto) (K/mm3) 2.1 [place] # (Auto) (K/mm3) 1.0 Eos # (Auto) (K/mm3) 0.05 Baso # (Auto) (K/mm3) 0.0 Serology Treponema pallidum Ab (NONREACTIVE) NONREACTIVE Hep Bs Antigen (NONREACTIVE) NONREACTIVE Hepatitis C Antibody (NONREACTIVE) NONREACTIVE Hep C Ab Signal/Cutoff (<0.80) <0.02 HIV 1 2 Antibody (NONREACTIVE) NONREACTIVE Results: labs reviewed Diagnosis, Assessment Plan Diagnosis, Assessment Plan Free Text A P: @ 39 weeks IOL with induceable cervix. - nreassuring status Plan: admit to inpatient, induction of labor, delivery Consultation(s): Consultation performed: anesthesia Reason for consultation: epidural Plan discussed with: patient, spouse/partner, nurse Time spent: Time spent on patient care (minutes): 40 >50% spent on counseling/coordination of care: yes at 1449 RPT #:[id number] END OF REPORT [facility] 2023-11-21 11:58:42 Patient arrived in wheelchair. Contractions about 5 minutes apart started about 40 minutes ago. 32 weeks. . Cristi margyn Gave report to Michelle. Estefanía Fuentes RN [facility] 2022-04-17 08:45:00 [facility] ([facility]) OB Postpart Progr Note REPORT#:[id number] REPORT STATUS: Signed DATE:04/17/22 TIME: 0845 PATIENT: TIFFANY RUFFIN UNIT #: [id number] ROOM/BED: 2005 : 97 AGE: 27 SEX: F ATTEND: Lakisha Cisse MD ADM AUTHOR: Lakisha Cisse MD * ALL edits or amendments must be made on the electronic/computer document * Subjective Subjective Admission EGA: Weeks: 36 Days: 2 EGA at delivery (wks/days): 36 weeks Status/Day: post Objective General VS: Vital Signs: Date Time Temp Pulse Resp B/P B/P Pulse O2 O2 Flow FiO2 Mean Ox Delivery Rate 04/16 2325 98.1 18 112/67 04/16 1604 98.6 87 20 109/66 PATIENT WEIGHT: Weight (lb): 155 Weight (oz): Weight (kg): 70.209693 DAY #2 SUBJECTIVE: No complaints. Scant lochia. Tolerating a regular diet. Ambulatory. Voiding spontaneously. Nursing. OBJECTIVE: Vital signs stable. Afebrile Fundus is firm, low and nontender. Perineum/suture sites are healing well and intact. ASSESSMENT: Recovering well after . PLAN: Doing well and ready for discharge home. RX: Motrin 600 mg 1 tab po q 6 hours prn pain # 30 Resume PNV and iron as before delivery. Return to office in 6 weeks. Discharge instructions have been given Diagnosis, Assessment Plan Diagnosis, Assessment Plan Problem List/A P: 1. labor in third trimester 2. 36 weeks gestation of 3. Genital herpes affecting 4. delivery, delivered 5. Delivery outcome of single liveborn infant Free text A P: 27 yo at 36w3d admitted for labor. Vitals wnl. FHT Cat I. GBS negative. -s/p NVD - recovering well Assessment: nml progress Plan: routine care, discharge today Plan discussed with: patient, spouse/partner Time spent: Time spent on patient care (minutes): 20 >50% spent on counseling/coordination of care: yes at 0846 RPT #:[id number] END OF REPORT [facility] 2022-04-16 09:50:00 [facility] ([facility]) OB Postpart Progr Note REPORT#:[id number] REPORT STATUS: Signed DATE:04/16/22 TIME: 0950 PATIENT: TIFFANY RUFFIN UNIT #: [id number] ROOM/BED: : 97 AGE: 27 SEX: F ATTEND: Lakisha Cisse MD ADM AUTHOR: Lakisha Cisse MD * ALL edits or amendments must be made on the electronic/computer document * Subjective Subjective Admission EGA: Weeks: 36 Days: 2 EGA at delivery (wks/days): 36 weeks Status/Day: post Objective Nursing Documentation Review Nursing Data: The data set between the solid lines has been imported from nursing documentation. Any exceptions have been noted below under Provider comments. Feeding preference: Post hemorrhage risk score: Low Risk for Hemorrhage. Provider comments on imported nursing data: [] __Vital Signs: Date Time Temp Pulse Resp B/P B/P Pulse O2 O2 Flow FiO2 Mean Ox Delivery Rate 04/16 410 88.0 04/16 410 98.3 94 18 101/64 04/15 2347 98.2 92 18 76.0 97 Room air DAY #1 SUBJECTIVE: No complaints. Scant lochia. Tolerating a regular diet. Ambulatory. Voiding spontaneously. Nursing. OBJECTIVE: Vital signs stable. Afebrile Fundus is firm, low and nontender. Perineum/suture sites are healing well and intact. Laboratory Tests: 04/16 400 Hematology Hgb (10.1 - 13.8 g/dL) 9.7 L Hct (32.5 - 41.8 %) 30.3 L ASSESSMENT: Recovering well after . PLAN: Continue care per orders. Planning for discharge home tomorrow. Diagnosis, Assessment Plan Diagnosis, Assessment Plan Problem List/A P: 1. labor in third trimester 2. 36 weeks gestation of 3. Genital herpes affecting 4. delivery, delivered 5. Delivery outcome of single liveborn infant Free text A P: 27 yo at 36w3d admitted for labor. Vitals wnl. FHT Cat I. GBS negative. -s/p NVD - recovering well Assessment: nml progress Plan: routine care, discharge tomorrow Plan discussed with: patient, spouse/partner at 0902 RPT #:[id number] END OF REPORT [facility] 2022-04-15 17:46:00 [facility] ([facility]) OB Delivery Note REPORT#:[id number] REPORT STATUS: Signed DATE:04/15/22 TIME: 1746 PATIENT: TIFFANY RUFFIN UNIT #: [id number] ROOM/BED: [address] : 97 AGE: 27 SEX: F ATTEND: Lakisha Cisse MD ADM AUTHOR: Lakisha Cisse MD * ALL edits or amendments must be made on the electronic/computer document * OB Delivery Nursing Documentation Review Nursing data: The data set between the solid lines has been imported from nursing documentation. Any exceptions have been noted below under Provider comments. _ ROM date: ROM time: Membranes rupture method: AROM Amniotic fluid color: Clear Amniotic fluid amount: Steroids prior to arrival: Antibiotic prophylaxis given: Post hemorrhage risk score: Low Risk for Hemorrhage. Delivery date A: Delivery time infant A: Birthweight (gm) infant A: Weight (lb) infant A: Weight (oz) infant A: Gender A: Male 1 minute A: 5 minutes A: 10 minutes A: Cord pH obtained A: Vacuum time A: Vacuum # pulls A: Vacuum # popoffs A: QBL at delivery: __ Provider comments on imported nursing data: [] Pre-delivery GBS status: GBS status: negative Pool evaluation at delivery: NRP certified personnel Admission EGA: Weeks: 36 Days: 2 EGA at delivery (wks/days): 36 weeks Admission indication: labor Blood Loss/Details Blood loss at delivery: <1K: no sx hypovol=no hem, no more than expected EBL at delivery (ml's): 50 Baby A Information Baby A information Delivery date: 04/15/22 Delivery time: 173 status: live born Wt of baby (grams): 2930 Wt of baby (lbs/oz): 6-8 Gender: male 1 minute: 8 5 minutes: 9 Presentation: vertex Anomalies: none ABG details Baby A Cord blood gases: not collected Nuchal cord Baby A Nuchal cord: no Anomalies: none Vaginal Delivery Vaginal Delivery Vaginal delivery: Labor: augmented Medications/Devices used: oxytocin Vaginal delivery: spontaneous Amniotic fluid: clear Anesthesia type: epidural anesthesia Episiotomy: none Episiotomy repair: not applicable Laceration repair: no Placenta: spontaneous, expressed, intact Post delivery meds used: oxytocin Count: correct, vag exam neg for sponges Vaginal packing: No Mother's condition: mother stable 's condition: stable in room Lacerations: Perineal laceration(s): none High vaginal laceration: no Extraction details OVD performed: no Shoulder dystocia present: no Note dictated: No Additional comments: Patient presented with contractions and progresed from 2 to 4cm dilated. Admitted and epidura; given. Contractions spaced and started pitocin augmentation. Becaome complete and pushed for 15 minutes. Head delivered OA followed by ant/post shoulders then the body. Nose/mouth suctioned. Placed on materna abdomen. Spontaneous cry, RR, HT tone, Color. After delayed cord clamping x 60 seconds cord was clamped and cut by Dd. Cord blood collected. Placenta delivered intact. Uterus emptry and firm. No laceration noted. All lap instrument counts correct x2. Mother/infant tolerated delivery well. at 1751 RPT #:[id number] END OF REPORT [facility] 2022-04-15 08:57:00 [facility]) OB Intrapart Prog Note REPORT#:[id number] REPORT STATUS: Signed DATE:04/15/22 TIME: 08 PATIENT: TIFFANY RUFFIN UNIT #: [id number] ROOM/BED: [address] : 97 AGE: 27 SEX: F ATTEND: Lakisha Cisse MD ADM AUTHOR: Lakisha Cisse MD * ALL edits or amendments must be made on the electronic/computer document * Subjective Subjective Admission EGA: Weeks: 36 Days: 2 Current EGA: Current EGA(wks): 36 Current EGA(days): 2 Comments: Admitted for labor, progressed from 2 to 4 cm. AROM/IPUC and pitocin. Awaiting epidural Objective Nursing Documentation Review Nursing data: The data set between the solid lines has been imported from nursing documentation. Any exceptions have been noted below under Provider comments. __ ROM date: ROM time: __ Provider comments on imported nursing data: [] General VS: Last Documented: Result Date Time Pulse Ox 96 04/15 659 Pulse 92 04/15 0659 Temp 98.4 04/15 622 Resp 18 04/15 622 B/P Mean 83.0 04/15 0609 B/P 111/66 04/15 0609 Vital Signs Date Temp Pulse Resp B/P B/P Mean Pulse Ox FiO2 04/14-04/15 98.4-98.6 89-129 18 80-120/43-69 56.0-88.0 94-100 PATIENT WEIGHT: Weight (lb): Weight (oz): Weight (kg): 70.664337 Objective Cervical/ exam: Dilatation (cm): 4 Effacement (%): 70 station: - 3 presentation: cephalic Est. wt (grams) 2900.00 Pelvis exam: Clinically adequate for this fetus: yes Uterine activity: Monitor: IUPC Frequency (description): regular (eveyr 2) Frequency (minutes): 3 Duration (seconds): 60 Intensity: strong Resting tone: relaxed MVUs: 220 Tachysystole: No Procedures: artificial rupture memb (clear fluid, large amount), intrauterine press cath FHR Evaluation Baby A: Baby A baseline: 130 bpm Baby A variability: moderate 6-25 bpm Baby A accelerations: 15 X 15 Baby A decelerations: none Baby A FHR category: category 1 Result Findings/Data: Laboratory Tests: 04/147 1625 Hematology WBC (6.5 - 12.3 K/mm3) 19.4 H RBC (3.51 - 4.69 M/mm3) 4.00 Hgb (10.1 - 13.8 g/dL) 11.1 Hct (32.5 - 41.8 %) 35.0 MCV (84.6 - 96.6 fL) 87.5 MCH (27.3 - 33.9 pg) 27.8 MCHC (32.0 - 34.2 gm/dL) 31.7 L RDW (12.2 - 16.3 %) 14.6 Plt Count (134 - 363 K/mm3) 290 MPV (9.2 - 12.7 fL) 11.7 Neut % (Auto) (57.9 - 77.3 %) 78.2 H Lymph % (Auto) (14.5 - 29.7 %) 14.5 [place] % (Auto) (3.6 - 10.2 %) 5.4 Eos % (Auto) (0.0 - 3.0 %) 0.4 Baso % (Auto) (0.1 - 0.9 %) 0.3 Neut # (Auto) (K/mm3) 15.2 Lymph # (Auto) (K/mm3) 2.8 [place] # (Auto) (K/mm3) 1.1 Eos # (Auto) (K/mm3) 0.07 Baso # (Auto) (K/mm3) 0.1 Serology Treponema pallidum Ab (NONREACTIVE) NONREACTIVE Hep Bs Antigen (NONREACTIVE) NONREACTIVE Hepatitis C Antibody (NONREACTIVE) NONREACTIVE Hep C Ab Signal/Cutoff (<0.80) 0.12 HIV 1 2 Antibody (NONREACTIVE) NONREACTIVE Rubella Screen (IUnit/ml) 174.3 Urines Urine Color (YELLOW) YELLOW Urine Appearance (CLEAR) CLEAR Urine pH (5 - 9) 8.0 Ur Specific [place] (1.001 - 1.035) 1.011 Urine Protein (NEG) NEGATIVE Urine Glucose (UA) (NEG) NEGATIVE Urine Ketones (NEG) NEGATIVE Urine Blood (NEG) NEG Urine Nitrite (NEG) NEG Urine Bilirubin (NEG) NEGATIVE Urine Urobilinogen (NEG mg/dL) NEGATIVE Ur Leukocyte Esterase (NEG) NEG Urine RBC (NONE SEEN #/hpf) 0-2 Urine WBC (NONE SEEN #/hpf) 0-2 Ur Epithelial Cells (RARE - FEW #/HPF) RARE Urine Mucus (NONE SEEN) RARE Diagnosis, Assessment Plan Problem List/A P: 1. labor in third trimester 2. 36 weeks gestation of 3. Genital herpes affecting Free Text A P: 27 yo at 36w3d admitted for labor. Vitals wnl. FHT Cat I. GBS negative. -Continue Pitocin, titrate per protocol -S/p AROM with IUPC placement -Continuous EFM, IUPC Anticipate NVDE Assessment: normal FHR pattern Plan: anticipate vag delivery Consultation(s): Consultation performed: anesthesia Reason for consultation: epidural Plan discussed with: patient, spouse/partner, nurse at 0900 RPT #:[id number] [facility] 05:26:00 [facility] ([facility]) OB Intrapart Prog Note REPORT#:[id number] REPORT STATUS: Signed DATE:04/15/22 TIME: 525 PATIENT: TIFFANY RUFFIN UNIT #: [id number] ROOM/BED: [address] : 97 AGE: 27 SEX: F ATTEND: Lakisha Cisse MD ADM AUTHOR: Cordelia Marshall MD * ALL edits or amendments must be made on the electronic/computer document * Subjective Subjective Admission EGA: Weeks: 36 Days: 2 Current EGA: Current EGA(wks): 36 Current EGA(days): 2 Patient reports: Comments: Feeling contractions every couple of minutes. Objective General VS: Last Documented: Result Date Time Pulse Ox 98 04/15 045 Pulse 93 04/15 0458 B/P Mean 56.0 04/15 0409 B/P 80/43 04/15 0409 Temp 98.4 04/15 031 Resp 18 04/15 310 Vital Signs Date Temp Pulse Resp B/P B/P Mean Pulse Ox FiO2 04/14-04/15 98.4-98.6 89-112 18 80-120/43-68 56.0-85.0 94-98 PATIENT WEIGHT: Weight (lb): Weight (oz): Weight (kg): 70.364415 Vital Signs: Date Time Temp Pulse Resp B/P B/P Pulse O2 O2 Flow FiO2 Mean Ox Delivery Rate 04/15 458 93 98 04/15 0453 105 96 04/15 0448 107 98 04/15 0443 96 94 04/15 0438 94 94 04/15 0437 98 94 04/15 0433 96 94 04/15 0431 92 94 04/15 0428 102 94 04/15 0425 92 94 04/15 0423 96 94 04/15 0418 94 94 04/15 0413 91 94 04/15 0411 91 94 04/15 0409 56.0 04/15 0409 95 80/43 04/15 0408 96 95 04/15 0404 91 94 04/15 0403 90 95 04/15 0358 92 95 04/15 0355 91 94 04/15 0353 96 95 04/15 0350 91 94 04/15 0348 89 95 04/15 0343 91 96 04/15 0338 103 97 04/15 0333 97 96 04/15 0328 106 98 04/15 0323 105 97 04/15 0318 92 97 04/15 0313 105 98 04/15 0312 75.0 04/15 0312 103 101/58 04/15 0310 98.4 18 04/15 0308 94 97 04/15 0303 97 97 04/15 0110 77.0 04/15 0110 93 110/60 04/15 001 68.0 04/15 001 91 97/50 04/15 0013 65.0 04/15 0013 96 87/52 04/14 2308 79.0 04/14 2308 93 109/59 04/14 1913 85.0 04/14 1913 98.6 112 120/68 Objective Cervical/ exam: Dilatation (cm): 4 Effacement (%): 50 station: - 3 presentation: cephalic Est. wt (grams) 2900.00 Pelvis exam: Clinically adequate for this fetus: yes Uterine activity: Monitor: toco Frequency (description): regular (eveyr 2) Resting tone: relaxed Tachysystole: No Current oxytocin: Indication: augmentation Infusion rate: 8.00 Procedures: artificial rupture memb (clear fluid, large amount), intrauterine press cath FHR Evaluation Baby A: Baby A baseline: 120 bpm Baby A variability: moderate 6-25 bpm Baby A accelerations: 15 X 15 Baby A decelerations: none Baby A FHR category: category 1 Result Findings/Data: Laboratory Tests: 04/14 1625 Hematology WBC (6.5 - 12.3 K/mm3) 19.4 H RBC (3.51 - 4.69 M/mm3) 4.00 Hgb (10.1 - 13.8 g/dL) 11.1 Hct (32.5 - 41.8 %) 35.0 MCV (84.6 - 96.6 fL) 87.5 MCH (27.3 - 33.9 pg) 27.8 MCHC (32.0 - 34.2 gm/dL) 31.7 L RDW (12.2 - 16.3 %) 14.6 Plt Count (134 - 363 K/mm3) 290 MPV (9.2 - 12.7 fL) 11.7 Neut % (Auto) (57.9 - 77.3 %) 78.2 H Lymph % (Auto) (14.5 - 29.7 %) 14.5 [place] % (Auto) (3.6 - 10.2 %) 5.4 Eos % (Auto) (0.0 - 3.0 %) 0.4 Baso % (Auto) (0.1 - 0.9 %) 0.3 Neut # (Auto) (K/mm3) 15.2 Lymph # (Auto) (K/mm3) 2.8 [place] # (Auto) (K/mm3) 1.1 Eos # (Auto) (K/mm3) 0.07 Baso # (Auto) (K/mm3) 0.1 Serology Treponema pallidum Ab (NONREACTIVE) NONREACTIVE Hep Bs Antigen (NONREACTIVE) NONREACTIVE Hepatitis C Antibody (NONREACTIVE) NONREACTIVE Hep C Ab Signal/Cutoff (<0.80) 0.12 HIV 1 2 Antibody (NONREACTIVE) NONREACTIVE Rubella Screen (IUnit/ml) 174.3 Urines Urine Color (YELLOW) YELLOW Urine Appearance (CLEAR) CLEAR Urine pH (5 - 9) 8.0 Ur Specific [place] (1.001 - 1.035) 1.011 Urine Protein (NEG) NEGATIVE Urine Glucose (UA) (NEG) NEGATIVE Urine Ketones (NEG) NEGATIVE Urine Blood (NEG) NEG Urine Nitrite (NEG) NEG Urine Bilirubin (NEG) NEGATIVE Urine Urobilinogen (NEG mg/dL) NEGATIVE Ur Leukocyte Esterase (NEG) NEG Urine RBC (NONE SEEN #/hpf) 0-2 Urine WBC (NONE SEEN #/hpf) 0-2 Ur Epithelial Cells (RARE - FEW #/HPF) RARE Urine Mucus (NONE SEEN) RARE Diagnosis, Assessment Plan Problem List/A P: 1. labor in third trimester 2. 36 weeks gestation of 3. Genital herpes affecting Free Text A P: 27 yo at 36w3d admitted for labor. Vitals wnl. FHT Cat I. GBS negative. -Continue Pitocin, titrate per protocol -S/p AROM with IUPC placement -Continuous EFM, IUPC at 0538 RPT #:[id number] [facility] 01:12:00 [facility] ([facility]) OB Admission / H P REPORT#:[id number] REPORT STATUS: Signed DATE:04/15/22 TIME: 111 PATIENT: TIFFANY RUFFIN UN[facility] [id number] [facility] AGE: 27 SEX: F ATTEND: Lakisha Cisse MD ADM AUTHOR: Cordelia Marshall MD * ALL edits or amendments must be made on the electronic/computer document * OB History Chief complaint: uterine contractions HPI: 27 yo at 36w3d presenting with contractions. She made cervical change from 07/13/-4 to /-3 in the OB ED. Notes bloody mucous. Denies leakage of fluid. She received care with Dr. Cisse. history: : 3 Term: 2 : 0 Abortus: 0 Living children: 2 Complications (prev preg): none Previous : none Comments: G1: 40w, 5 lb 15 oz G2: 37w, 6 lb 11 oz Current : Best EDC: 05/10/22 Admission EGA (weeks) 36 Admission EGA (days) 2 EDC based on: LMP, ultrasound, 2nd trimester Conditions of : genital HSV Labs: Blood type: A Rh: positive Rubella: immune Hepatitis B: negative HIV: negative STD: negative Syphilis: currently negative GBS: negative Genetic testing: Quad screen negative. Past History Additional Medical History: Denies. Additional Surgical History: Denies. Additional Family History Denies. Alcohol Use Denies EtOH use Drug Use Denies recreational drugs Smoking status for patients 13 years old or older: Never Smoker Medications: Home Medications: PNV/FE FUM/FA ( MULTIVITAMIN) 1 TAB PO DAILY Allergies: Coded Allergies: No Known Allergies (04/14/22) Review of Systems : Reports: other (contractions). All systems rev neg: except as marked Objective General VS: Last Documented: Result Date Time B/P Mean 68.0 04/15 15 B/P 97/50 04/15 001 Pulse 91 04/15 15 Temp 98.6 04/14 1913 Vital Signs Date Temp Pulse Resp B/P B/P Mean Pulse Ox FiO2 04/14-04/15 98.6 91-112 87-120/50-68 65.0-85.0 PATIENT WEIGHT: Weight (lb): Weight (oz): Weight (kg): 70.713922 Vital Signs: Date Time Temp Pulse Resp B/P B/P Pulse O2 O2 Flow FiO2 Mean Ox Delivery Rate 04/15 15 68.0 04/15 15 91 97/50 04/15 0013 65.0 04/15 0013 96 87/52 04/14 2308 79.0 04/14 2308 93 109/59 04/14 1913 85.0 04/14 1913 98.6 112 120/68 Physical Exam HEENT: normocephalic w/o injury Lungs: unlabored breathing Neuro: Exam: alert, oriented x3, normal speech Abdomen: gravid, soft, no abnormal tenderness Uterine activity: Monitor: toco Frequency (description): regular (eveyr 2-6 minutes) Resting tone: relaxed Tachysystole: No Cervical/ exam: Dilatation (cm): 4 (by nursing) Effacement (%): 50 Est wt (gms): 2900 station: - 3 Membranes: Membranes: Intact Lower extremities: Edema: trace Baby A: Baby A baseline: 120 bpm Baby A variability: moderate 6-25 bpm Baby A accelerations: 15 X 15 Baby A decelerations: none Baby A FHR category: category 1 Diagnosis, Assessment Plan Diagnosis, Assessment Plan Problem List/A P: 1. labor in third trimester 2. 36 weeks gestation of 3. Genital herpes affecting Free Text A P: 27 yo at 36w3d admitted for labor. Vitals wnl. FHT Cat I. GBS negative. -Admit to L D -Admission labs -Start Pitocin for augmentation, titrate per protocol -Will plan for AROM at next exam -Continuous EFM, toco at 0352 RPT #:[id number] END OF REPORT [facility] 2022-04-14 22:05:00 [facility] ([facility]) OB Admission / H P REPORT#:[id number] REPORT STATUS: Signed DATE:04/14/22 TIME: 2204 PATIENT: TIFFANY RUFFIN UNIT #: [id number] ROOM[facility]BED: [facility] : 97 AGE: 27 SEX: F ATTEND: Sisi Swartz MD ADM AUTHOR: Sisi Swartz MD * ALL edits or amendments must be made on the electronic/computer document * OB History Chief complaint: uterine contractions HPI: 27 y/o at 36w 2d presents for evaluation of contractions. The patient reports that she has been barbara for several weeks now, but they became more intense today. She denies vaginal bleeding or leakage of fluid. The patient reports normal movements. Of note, she has a h/o contractions during her last and was placed on bedrest. She eventually delivered that baby at 37 weeks. Past History Alcohol Use Denies EtOH use Drug Use Denies recreational drugs Smoking status for patients 13 years old or older: Never Smoker Allergies: Coded Allergies: No Known Allergies (04/14/22) Objective General VS: Last Documented: Result Date Time B/P Mean 85.0 04/14 1913 B/P 120/68 04/14 1913 Temp 98.6 04/14 1913 Pulse 112 04/14 1913 Vital Signs Date Temp Pulse Resp B/P B/P Mean Pulse Ox FiO2 04/14 98.6 112 120/68 85.0 PATIENT WEIGHT: Weight (lb): Weight (oz): Weight (kg): Physical Exam HEENT: normocephalic w/o injury Cardiac: regular rate and rhythm, no gallops, no rubs Lungs: clear to auscultation, unlabored breathing Abdomen: gravid, soft, no abnormal tenderness Uterine activity: Frequency (description): regular Frequency (minutes): 2 Cervical/ exam: Dilatation (cm): 2 Effacement (%): 30 station: - 3 (progressed to 4/50/-3) Membranes: Membranes: Intact Lower extremities: Edema: trace Baby A: Baby A baseline: 130 bpm Baby A variability: moderate 6-25 bpm Baby A accelerations: 15 X 15 Baby A decelerations: none Baby A FHR category: category 1 Results Findings/Data: Laboratory Tests: 04/14 1625 Urines Urine Color (YELLOW) YELLOW Urine Appearance (CLEAR) CLEAR Urine pH (5 - 9) 8.0 Ur Specific [place] (1.001 - 1.035) 1.011 Urine Protein (NEG) NEGATIVE Urine Glucose (UA) (NEG) NEGATIVE Urine Ketones (NEG) NEGATIVE Urine Blood (NEG) NEG Urine Nitrite (NEG) NEG Urine Bilirubin (NEG) NEGATIVE Urine Urobilinogen (NEG mg/dL) NEGATIVE Ur Leukocyte Esterase (NEG) NEG Urine RBC (NONE SEEN #/hpf) 0-2 Urine WBC (NONE SEEN #/hpf) 0-2 Ur Epithelial Cells (RARE - FEW #/HPF) RARE Urine Mucus (NONE SEEN) RARE Diagnosis, Assessment Plan Diagnosis, Assessment Plan Free Text A P: 27 y/o at 36w 2d being admitted for contractions and threatened labor. She will be transferred to [facility] and re-examined in a few hours to see if she is making progress on her own mechanism. her primary OBGYN has been contacted and gave orders to the nurse. at 2225 RPT #[id number] END OF REPORT [facility] 2022-03-28 04:00:00 [facility] EMERGENCY PROVIDER REPORT REPORT#:[id number] REPORT STATUS: Signed DATE:03/28/22 TIME: 0400 PATIENT: TIFFANY RUFFIN UNIT #: [id number] ROOM/BED: AGE: 27 SEX: F PCP PHYS: Lakisha Cisse MD SERVICE AUTHOR: Jimmie Giraldo MD * ALL edits or amendments must be made on the electronic/computer document * [place] History Chief complaint: uterine contractions HPI: 27 y/o with term (37 week +) deliveries x2. She was treated in previous for pre-term labor but delivered at term. She reports this course has been uncomplicated until about one week ago when she developed increased uterine contraction activity and was seen here in [place]. The cervix was closed at that time but she was given Terbutaline x 2 doses and contraction activity disappeared. She was doing well until last PM when ahe again began to note increased contractions about every 5 minutes, some uncomfortable. She denied bleeding or fluid loss ands baby has been quite active. history: : 3 Term: 2 : 0 Abortus: 0 Living children: 2 Complications (prev preg): possible labor but delivered at term Previous : none Current : EDC: 05/10/22 EGA (weeks/days): 35 weeks (33w 6d) Comments: Treatment for PTL last week Conditions of : false labor Labs: Blood type: A Rh: positive Rubella: immune Hepatitis B: negative HIV: negative RPR: non-reactive STD: negative GBS: negative Procedures: ultrasound, genetic testing Genetic testing: chromosomal disorder, cystic fibrosis, Down syndrome, neural tube defect, sickle cell disease, thalassemia Notes: reports glucose screen and NIPT negative Past medical history: denies PMH Past surgical history: denies PSH Family history No Known Family History. Medications: Home Medications: Medication Dose/Rte/Freq Days Qty Entered Last Max Daily Dose Reviewed PNV/FE FUM/FA 1 TAB PO DAILY 03/07/18 ( MULTIVITAMIN) 1055 Strength: 1 TAB TAB HYDROcodone/APAP 1 TAB PO 06/01/18 (HYDROcodone/APAP 5/325) Q6H PRN PRN PAIN 0840 Strength: 1 TAB TAB SCALE 4-6 (USE 2ND) IBUPROFEN (MOTRIN) 600 MG PO 30 06/01/18 Strength: 600 MG TAB Q6H PRN PRN MILD 0840 PAIN (1-3) IRON/FA/B12/C/DOCUSATE 1 TAB PO DAILY 06/01/18 SODIUM 0840 (FERRALET 90) Strength: 1 EACH TAB Current Hospital Medications: Autonomic Drugs Sig/Joe Start time Last Medication Dose Route Stop Time Status Admin Terbutaline Sulfate 0.25 MG Q20M 03/28 0415 AC (TERBUTALINE 1 MG/ML SUBQ 03/28 043 1 ML AMP) Allergies Coded Allergies: No Known Allergies (03/21/22) Comments: Uterine irritability false labor responded to Terbutaline last week Objective General VS: Last Documented: Result Date Time B/P Mean 87.0 03/28 225 B/P 03/28 Temp 98.4 03/28 022 Pulse 85 03/28 022 Resp 18 03/28 225 Vital Signs Date Temp Pulse Resp B/P B/P Mean Pulse Ox FiO2 03/28 98.4 85 18 87.0 PATIENT WEIGHT: Weight (lb): Weight (oz): Weight (kg): Physical Exam HEENT: normocephalic w/o injury, no lesions of mouth, no lesions of throat Cardiac: regular rate and rhythm Lungs: clear to auscultation, unlabored breathing Breasts: deferred Neuro: Exam: alert, oriented x3, normal speech DTR's (lower extr): normal 1-2+ Abdomen: gravid, soft, no abnormal tenderness Uterine activity: Monitor: toco Frequency (description): irritability, irregular Duration (seconds): 50 Intensity: mild Tachysystole: No Pelvic exam: Pelvis clinically adequate: yes Vulvar lesions: none Vagina: normal Uterus size in weeks: 34 Exam: soft, non-tender, approp size for gest age Cervical/ exam: Dilatation (cm): 0 - closed Effacement (%): 30 station: - 3 presentation: cephalic FHR evaluation: Baseline: 130 bpm Variability: marked > 25 bpm Accelerations: 15 X 15 Decelerations: none FHR category: category 1 Notes: increased activity detected Membranes: Membranes: Intact Lower extremities: Edema: none Julio's sign: negative Calf tenderness: negative Additional comments: Patient has significant anxiety regarding perceived uterine contractions Results Results: no new labs, labs reviewed, vital signs reviewed, vital signs stable Diagnosis, Assessment Plan Diagnosis, Assessment Plan Free Text A P: 27 y/o now 33 6/7 weeks with uterine irritability, history of possible pre -term labor that delivered at term, episode of contraction irritability responded to Terbutaline Assessment/Impression: reassuring status, membranes intact, normal FHR pattern Plan: discharge home, IVF Plan discussed with: patient, nurse Comments: She does have some detectable uterine contraction activity but I doubt pre-term labor. Because of her concerns detecting contractions I will go ahead with IV fluid load and Terbutaline, expect these will quiet irritability. Plan to discharge after adequate response. at 0421 RPT #:[id number] END OF REPORT [facility] 2022-03-21 14:03:00 [facility] EMERGENCY PROVIDER REPORT REPORT#:[id number] REPORT STATUS: Signed DATE:03/21/22 TIME: 1403 PATIENT: TIFFANY RUFFIN UNIT #: [id number] ROOM/BED: AGE: 27 SEX: F PCP PHYS: Lakisha Cisse MD SERVICE AUTHOR: Mai Steel MD * ALL edits or amendments must be made on the electronic/computer document * [facility] History Chief complaint: uterine contractions HPI: Patient at 32.6/7wk presents today with compliants of contraction since morning 11.30 am , she denies any vaginal bleeding,no LOF movements present she had recent sex and since then her contraction started she gets her care with Dr Cisse history: : 3 Term: 2 : 0 Abortus: 0 Living children: 2 Complications (prev preg): labor Previous : none Current : EDC: 05/20/22 EGA (weeks/days): 32,6/7wk Past medical history: denies PMH Past surgical history: denies PSH Social history: no alcohol use, no tobacco use, no drug use Family history No Known Family History. Medications: Home Medications: Medication Dose/Rte/Freq Days Qty Entered Last Max Daily Dose Reviewed PNV/FE FUM/FA 1 TAB PO DAILY 03/07/18 03/21/22 ( MULTIVITAMIN) 1055 1326 Strength: 1 TAB TAB HYDROcodone/APAP 1 TAB PO 06/01/18 (HYDROcodone/APAP 5/325) Q6H PRN PRN PAIN 0840 Strength: 1 TAB TAB SCALE 4-6 (USE 2ND) IBUPROFEN (MOTRIN) 600 MG PO 30 06/01/18 Strength: 600 MG TAB Q6H PRN PRN MILD 0840 PAIN (1-3) IRON/FA/B12/C/DOCUSATE 1 TAB PO DAILY 06/01/18 03/21/22 SODIUM 0840 1326 (FERRALET 90) Strength: 1 EACH TAB Allergies Coded Allergies: No Known Allergies (03/21/22) Review of Systems Constitutional: Denies: fever, malaise. Respiratory: Denies: [facility]OPE[facility] (dyspnea on exertion), SOB. Cardiovascular: Denies: chest pain, palpitations. GI: Denies: nausea, vomiting. : Reports: pelvic pain, . Denies: dysuria, vaginal bleeding, vaginal discharge. All systems rev neg: except as marked Objective General VS: Last Documented: Result Date Time B/P Mean 84.0 03/21 1503 B/P 120/58 03/21 1503 Pulse 121 03/21 1503 Temp 98.3 03/21 1318 Resp 16 03/21 1318 Vital Signs Date Temp Pulse Resp B/P B/P Mean Pulse Ox FiO2 03/21 98.3 102-121 16 112-120/58-63 81.0-84.0 PATIENT WEIGHT: Weight (lb): 152 Weight (oz): Weight (kg): [id number] Physical Exam HEENT: normocephalic w/o injury Lungs: clear to auscultation Abdomen: gravid, no guarding Uterine activity: Monitor: toco Frequency (description): regular Frequency (minutes): 2 Intensity: mild Cervical/ exam: Dilatation (cm): 0 - closed Effacement (%): 50 FHR evaluation: Baseline: 110 bpm Variability: moderate 6-25 bpm Accelerations: 15 X 15, 10 X 10 Decelerations: none FHR category: category 1 Results Findings/Data: Laboratory Tests: 03/21 1323 Urines Urine Color (YELLOW) YELLOW Urine Appearance (CLEAR) CLEAR Urine pH (5 - 9) 7.0 Ur Specific [place] (1.001 - 1.035) 1.011 Urine Protein (NEG) NEGATIVE Urine Glucose (UA) (NEG) NEGATIVE Urine Ketones (NEG) 1+ H Urine Blood (NEG) NEG Urine Nitrite (NEG) NEG Urine Bilirubin (NEG) NEGATIVE Urine Urobilinogen (NEG mg/dL) NEGATIVE Ur Leukocyte Esterase (NEG) NEG Urine WBC (NONE SEEN #/hpf) 3-5 H Ur Epithelial Cells (RARE - FEW #/HPF) RARE Urine Bacteria (RARE - FEW /HPF) RARE Urine Mucus (NONE SEEN) RARE Diagnosis, Assessment Plan Diagnosis, Assessment Plan Free Text A P: Patient 27 yr old [id number] at 32.6/7wk with contraction s/p sex Plan: 1)Observation 2)NST 3)UA 4) IVfluids 5)Terbutaline patient is doing well after the terbutaline and iv fluids Will d/c home Advised to follow up with primary OB this week Return to [facility] as needed Plan: transfer to L D, discharge home, IVF, initiate tocolytic Rx, labor precautions, preeclampsia precautions, follow up Plan discussed with: patient, spouse/partner, nurse at 1828 RPT #:[id number] END OF REPORT [facility]
[2024-03-27] MEDS ORDERED: KETOROLAC 30 MG/ML INJ ONE (06:06)
[2024-03-27] MEDS ORDERED: ONDANSETRON 4 MG/2 ML VIAL ONE (06:10)
[2024-03-27] MEDS ORDERED: DIPHENOX/ATROP SULF 1 TAB PO ONE (06:10)
[2024-03-27] MEDS ORDERED: DICYCLOMINE HCL 10 MG CAP ONE (06:10)
[2024-03-27] MEDS ORDERED: FAMOTIDINE 20 MG/2 ML VIAL IV ONE (06:10)
[2024-03-27] MEDS ORDERED: NA CHLORIDE 0.9% 1,000 ML ONE (06:11)
[2024-03-27 06:15] LABS: Absolute Basophils 0.1 K/uL (0-0.5); Absolute Lymphocytes (CBC) 0.7 K/uL (0.7-4.9); Absolute Monocytes 0.5 K/uL (0.1-1.3); Absolute Neutrophil 10.3 K/uL (1.8-8.0); Basophils % 0.5 % (0-1.3); Eosinophils % 0.3 % (0-4.4); Hematocrit 39.1 % (36.0-45.0); Hemoglobin 13.1 g/dL (12.0-15.0); Lymphocytes % 5.6 % (15.3-44.8); MCH 28.9 pg (27.0-35.0); MCHC 33.6 g/dL (32.0-36.0); MPV 9.7 fL (7.6-11.3); Monocytes % 4.7 % (3.3-12.3); Neutrophils % 88.9 % (41.7-73.7); Platelets 260 thou/uL (152-406); RBC Red Blood Cell Count 4.55 M/uL (3.86-4.86); Red Cell Distribution Width 15.5 % (12.1-15.2)
[2024-03-27 06:16] LABS: Specific Gravity > 1.030 (1.005-1.030); Sqamous Epithelial <5 /HPF (None Seen); Urine Bacteria None Seen /HPF (<20); Urine Bilirubin NEGATIVE (Negative); Urine Blood Negative (Negative); Urine Clarity Clear (Clear); Urine Color Light-Yellow (Yellow); Urine Culture Reflex Order NOT NEEDED; Urine Glucose NEGATIVE (Negative); Urine Ketones NEGATIVE (Negative); Urine Microscopic Reflex YN ORDER UMIC; Urine Mucus 2+ /HPF (None Seen); Urine Nitrite NEGATIVE (Negative); Urine Protein TRACE (Negative); Urine RBC <5 /HPF (None Seen); Urine Urobilinogen Normal (Normal); Urine WBC <5 /HPF (<5)
[2024-03-27 06:28] LABS: ALT/SGPT 20 U/L (13-56); AST/SGOT < 10 U/L (15-37); Albumin 3.6 g/dL (3.4-5.0); Albumin/Globulin Ratio 1.1 (1.1-1.8); Alkaline Phosphatase 67 U/L (45-117); Anion Gap 5.8 mEq/L (5.0-15.0); BUN Blood Urea Nitrogen 18 mg/dL (7-18); Bicarbonate 24 mEq/L (21-32); Bilirubin Total 1.2 mg/dL (0.2-1.0); Globulin 3.3 g/dL (2.3-3.5); Glomerular Filtration Rate 124 ml/min (=/>90); Glucose Level 103 mg/dL (74-106); Lipase 21 U/L (13-75); Potassium 3.8 mEq/L (3.5-5.1); Protein, Total 6.9 g/dL (6.4-8.2); Sodium Level 140 mEq/L (136-145)
--- NOTE | 2024-03-27 07:09 | ER ---
Nurse's Notes [facility] Name: Yane Viera Age: 29 yrs Sex: Female : 1995 Arrival Date: 03/27/2024 Time: 05:41 Bed 5 Private MD: Diagnosis: Acute viral gastroenteritis Presentation: 03/27 05:46 Chief complaint: EMS states: nausea, vomiting, diarrhea, and abdominal pain. ha1 Coronavirus screen: Client denies travel out of the [place] in the last 14 days. Ebola Screen: No symptoms or risks identified at this time. Initial Sepsis Screen: Does the patient meet any 2 criteria? No. Patient's initial sepsis screen is negative. Does the patient have a suspected source of infection? No. Patient's initial sepsis screen is negative. Risk Assessment: Do you want to hurt yourself or someone else? Patient reports no desire to harm self or others. Onset of symptoms was March 27, 2024. 05:46 Method Of Arrival: EMS: [facility] ha1 05:46 Acuity: ADILENE 3 ha1 Triage Assessment: 05:49 General: Appears uncomfortable, Behavior is calm, cooperative. Pain: Complains of pain ha1 in umbilical area Pain does not radiate. Pain currently is 7 out of 10 on a pain scale. Quality of pain is described as crampy, Pain began 1 day ago. Neuro: Level of Consciousness is awake, alert, obeys commands, Oriented to person, place, time, situation. Cardiovascular: Patient's skin is warm and dry. Respiratory: Airway is patent Respiratory effort is even, unlabored, Respiratory pattern is regular, symmetrical. GI: Abdomen is round non-distended. GI: Reports lower abdominal pain, diarrhea, nausea, vomiting. Derm: Skin is pink, warm \T\ dry. Historical: - Allergies: 05:49 No Known Allergies; ha1 - Home Meds: 05:49 Vitamin Oral tab 1 tab once daily [Active]; ha1 - PMHx: 05:49 Anxiety; Depressive disorder; ha1 - Immunization history:: Adult Immunizations up to date. - Infectious Disease History:: Denies. - Social history:: Smoking status: unknown. - Family history:: not pertinent. Screenin:53 [facility] ED Fall Risk Assessment (Adult) History of falling in the last 3 months, ha1 including since admission No falls in past 3 months (0 pts) Confusion or Disorientation No (0 pts) Intoxicated or Sedated No (0 pts) Impaired Gait No (0 pts) Mobility Assist Device Used No (0 pt) Altered Elimination No (0 pt) Score/Fall Risk Level 0 - 2 = Low Risk Oriented to surroundings, Maintained a safe environment, Educated pt \T\ family on fall prevention, incl call for assistance when getting out of bed, Hourly rounding (assess needs \T\ fall precautionary measures) done. Abuse screen: Denies threats or abuse. Denies injuries from another. Nutritional screening: No deficits noted. Tuberculosis screening: No symptoms or risk factors identified. 06:35 Exposure risk/Travel Screening: None identified. mt4 Assessment: 05:46 Reassessment: see triage assessment. ha1 06:35 Reassessment: Patient is alert, oriented x 3, equal unlabored respirations, skin mt4 warm/dry/pink. General: Appears in no apparent distress. comfortable, Behavior is calm, cooperative, appropriate for age. Pain: Complains of pain in abdomen Pain currently is 7 out of 10 on a pain scale. Quality of pain is described as aching. Neuro: Level of Consciousness is awake, alert, obeys commands, Oriented to person, place, time, situation, Appropriate for age Associate Research Scientist are equal bilaterally Moves all extremities. Gait is steady, Speech is normal, Facial symmetry appears normal. Cardiovascular: Capillary refill < 3 seconds. Respiratory: Airway is patent Respiratory effort is even, Respiratory pattern is regular. GI: Reports lower abdominal pain, diarrhea, nausea. : Denies burning with urination. Derm: Skin is intact, Skin is dry, Skin temperature is warm. Musculoskeletal: Capillary refill < 3 seconds, Range of motion: intact in all extremities. Vital Signs: 05:46 BP 112 / 72; Pulse 72; Resp 18 S; Temp 98.1; Pulse Ox 98% on R/A; Weight 68.95 kg; ha1 Height 5 ft. 1 in. ; 06:31 BP 94 / 55; Pulse 74; Resp 18; Temp 99(O); Pulse Ox 95% on R/A; Pain 7/10; mt4 07:13 BP 121 / 79; Pulse 72; Resp 15; Pulse Ox 99% ; ko1 05:46 Body Mass Index 28.72 (68.95 kg, 154.94 cm) ha1 06:31 Pain Scale: Adult mt4 [place] Coma Score: 06:35 Eye Response: spontaneous(4). Motor Response: obeys commands(6). Verbal Response: mt4 oriented(5). Total: 15. 03/28 02:11 Eye Response: spontaneous(4). Motor Response: obeys commands(6). Verbal Response: sp4 oriented(5). Total: 15. ED Course: 03/27 05:46 Patient arrived in ED. ha1 05:46 Patient has correct armband on for positive identification. Bed in low position. Call ha1 light in reach. Side rails up X 1. 05:46 Arm band placed on right wrist. ha1 05:49 Triage completed. ha1 05:54 Milton Garcia MD is Attending Physician. sp4 06:04 Liset Pagan, RN is Primary Nurse. mt4 06:35 No apparent distress. Resting quietly. Awaiting lab results. mt4 06:35 Provided Education on: medications. Client placed on continuous cardiac and pulse mt4 oximetry monitoring. NIBP monitoring applied. Pulse ox on. Door closed. Lights dimmed. Warm blanket given. Pillow given. Verbal reassurance given. Assisted to bathroom. 06:35 No provider procedures requiring assistance completed. Maintain EMS IV. Dressing mt4 intact. Patient maintains SpO2 saturation greater than 95% on room air. 07:13 IV discontinued, intact, bleeding controlled, No redness/swelling at site. Pressure ko1 dressing applied. Administered Medications: 06:26 Drug: NS 0.9% IV 1000 ml IV at 1 bolus Per protocol; to be given as a bolus over 60 mt4 minutes Route: IV; Rate: 1 bolus; Site: right antecubital; 07:00 Follow up: Response: No adverse reaction mt4 07:21 Follow up: Response: No adverse reaction ko1 06:27 Drug: Diphenoxylate-Atropine PO 2 tabs PO once Route: PO; mt4 06:58 Follow up: Response: No adverse reaction mt4 06:27 Drug: Ondansetron IVP 4 mg IVP once; over 2 minutes Route: IVP; Site: right antecubital;mt4 06:59 Follow up: Response: No adverse reaction mt4 06:27 Drug: Ketorolac IVP 30 mg IVP once Route: IVP; Site: right antecubital; mt4 06:59 Follow up: Response: No adverse reaction mt4 06:27 Drug: Dicyclomine PO 20 mg PO once Route: PO; mt4 07:00 Follow up: Response: No adverse reaction mt4 06:31 CANCELLED (Duplicate Order): [id number] mg PO once mt4 06:31 Drug: Famotidine IVP 20 mg IVP once; dilute with 10 mL 0.9% NaCl; give over 2 minutes mt4 Route: IVP; Site: right antecubital; 07:00 Follow up: Response: No adverse reaction mt4 Medication: 05:53 VIS not applicable for this client. ha1 Outcome: 07:08 Discharge ordered by . spReshma 07:13 Discharged to home ambulatory, ko1 07:13 Condition: stable 07:13 Discharge instructions given to patient, Instructed on discharge instructions, follow up and referral plans. medication usage, Demonstrated understanding of instructions, follow-up care, medications, Prescriptions given X 3, 07:21 Patient left the ED. ko1 Signatures: Blessing Ramos RN RN ha1 Maryam Murillo RN RN ko1 Milton Garcia MD MD sp4 Liset Pagan RN RN mt4 Corrections: (The following items were deleted from the chart) 06:28 06:27 Famotidine PO 20 mg PO mt4 mt4
--- NOTE | 2024-03-27 07:09 | EDPHYS ---
Physician Documentation [facility] Name: Yane Viera Age: 29 yrs Sex: Female : 1995 Arrival Date: 03/27/2024 Time: 05:41 Bed 5 Private MD: ED Physician Milton Garcia HPI: 03/27 07:07 This 29 yrs old Female presents to ER via EMS with complaints of Nausea, sp4 vomiting, abdominal pain . 03/28 02:11 Patient presents with nausea, vomiting, abdominal ache and feeling unwell . sp4 Historical: - Allergies: 03/27 05:49 No Known Allergies; ha1 - Home Meds: 05:49 Vitamin Oral tab 1 tab once daily [Active]; ha1 - PMHx: 05:49 Anxiety; Depressive disorder; ha1 - Immunization history:: Adult Immunizations up to date. - Infectious Disease History:: Denies. - Social history:: Smoking status: unknown. - Family history:: not pertinent. ROS: 03/28 02:11 Constitutional: Negative for fever, chills, and weight loss, Positve Nausea , vomting, sp4 diarrhea All other systems are negative, Exam: 02:11 Constitutional: This is a well developed, well nourished patient who is awake, alert, sp4 and in no acute distress. Head/Face: Normocephalic, atraumatic. Eyes: Pupils equal round and reactive to light, extra-ocular motions intact. Lids and lashes normal. Conjunctiva and sclera are not injected. Cornea within normal limits. Periorbital areas with no swelling, redness, or edema. ENT: Nares patent. No nasal discharge, no septal abnormalities noted. Tympanic membranes are normal and external auditory canals are clear. Oropharynx with no redness, swelling, or masses, exudates, or evidence of obstruction, uvula midline. Mucous membranes moist. Neck: Trachea midline, no thyromegaly or masses palpated, and no cervical lymphadenopathy. Supple, full range of motion without nuchal rigidity, or vertebral point tenderness. Chest/axilla: Normal chest wall appearance and motion. Nontender with no deformity. No lesions are appreciated. Cardiovascular: Regular rate and rhythm with a normal S1 and S2. No gallops, murmurs, or rubs. Normal PMI, no JVD. No pulse deficits. Respiratory: Lungs have equal breath sounds bilaterally, clear to auscultation and percussion. No rales, rhonchi or wheezes noted. No increased work of breathing, no retractions or nasal flaring. Abdomen/GI: Soft, with normal bowel sounds. No distension or tympany. No guarding or rebound. No evidence of tenderness throughout. Back: No spinal tenderness. No costovertebral tenderness. Skin: Warm, dry with normal turgor. Normal color with no rashes, no lesions, and no evidence of cellulitis. MS/ Extremity: Pulses equal, no cyanosis. Neurovascular intact. Full, normal range of motion. Neuro: Awake and alert, GCS 15, oriented to person, place, time, and situation. Cranial nerves II-XII grossly intact. Motor strength 5/5 in all extremities. Sensory grossly intact. Psych: Awake, alert, with orientation to person, place and time. Behavior, mood, and affect are within normal limits Vital Signs: 03/27 05:46 BP 112 / 72; Pulse 72; Resp 18 S; Temp 98.1; Pulse Ox 98% on R/A; Weight 68.95 kg; ha1 Height 5 ft. 1 in. ; 06:31 BP 94 / 55; Pulse 74; Resp 18; Temp 99(O); Pulse Ox 95% on R/A; Pain 7/10; mt4 07:13 BP 121 / 79; Pulse 72; Resp 15; Pulse Ox 99% ; ko1 05:46 Body Mass Index 28.72 (68.95 kg, 154.94 cm) ha1 06:31 Pain Scale: Adult mt4 [place] Coma Score: 06:35 Eye Response: spontaneous(4). Motor Response: obeys commands(6). Verbal Response: mt4 oriented(5). Total: 15. 03/28 02:11 Eye Response: spontaneous(4). Motor Response: obeys commands(6). Verbal Response: sp4 oriented(5). Total: 15. MDM: 03/27 05:55 Medical Screening Exam initiated sp4 03/28 02:11 Differential diagnosis: Nonspecific abd pain, gastritis, pancreatitis, viral sp4 gastroenteritis, gastroenteritis. Data reviewed: vital signs, nurses notes, old medical records, lab test result(s). Consideration of Admission/Observation Escalation of care including admission/observation considered. ED course: Patient has improved, stable for discharge home . 03/27 05:54 Order name: CBC with Diff sp4 03/27 05:54 Order name: CMP; Complete Time: 07:04 sp4 03/27 05:54 Order name: Lipase; Complete Time: 07:04 sp4 11 05:54 Order name: Test, Urine; Complete Time: 07:04 sp4 03/27 05:54 Order name: Urinalysis w/ reflexes; Complete Time: 07:04 sp4 03/27 05:54 Order name: IV Saline Lock; Complete Time: 06:26 sp4 11 05:54 Order name: Labs collected and sent; Complete Time: 06:58 sp4 Administered Medications: 03/27 06:26 Drug: NS 0.9% IV 1000 ml IV at 1 bolus Per protocol; to be given as a bolus over 60 mt4 minutes Route: IV; Rate: 1 bolus; Site: right antecubital; 07:00 Follow up: Response: No adverse reaction mt4 07:21 Follow up: Response: No adverse reaction ko1 06:27 Drug: Diphenoxylate-Atropine PO 2 tabs PO once Route: PO; mt4 06:58 Follow up: Response: No adverse reaction mt4 06:27 Drug: Ondansetron IVP 4 mg IVP once; over 2 minutes Route: IVP; Site: right antecubital;mt4 06:59 Follow up: Response: No adverse reaction mt4 06:27 Drug: Ketorolac IVP 30 mg IVP once Route: IVP; Site: right antecubital; mt4 06:59 Follow up: Response: No adverse reaction mt4 06:27 Drug: Dicyclomine PO 20 mg PO once Route: PO; mt4 07:00 Follow up: Response: No adverse reaction mt4 06:31 CANCELLED (Duplicate Order): mg PO once mt4 06:31 Drug: Famotidine IVP 20 mg IVP once; dilute with 10 mL 0.9% NaCl; give over 2 minutes mt4 Route: IVP; Site: right antecubital; 07:00 Follow up: Response: No adverse reaction mt4 Disposition: 03/28 02:14 Chart complete. sp4 Disposition Summary: 11/04/24 07:08 Discharge Ordered Notes: Location: Home sp4 Problem: new sp4 Symptoms: have improved sp4 Condition: Stable sp4 Diagnosis - Acute viral gastroenteritis sp4 Followup: sp4 - With: Private Physician - When: 7 - 10 days - Reason: Recheck today's complaints Discharge Instructions: - Discharge Summary Sheet sp4 - Viral Gastroenteritis, Adult, [id number] sp4 Forms: - Patient Portal Instructions sp4 Prescriptions: - ondansetron 8 mg Oral Tablet,disintegrating - take 1 tablet ORAL route every 8 hours PRN nausea; 30 tablet; Refills: 0, sp4 Product Selection Permitted - Lomotil 2.5-0.025 mg Oral tablet - take 1 tablet ORAL route every 6 hours As needed PRN diarrhea; 30 tablet; sp4 Refills: 0, Product Selection Permitted - dicyclomine 20 mg Oral tablet - take 1 tablet ORAL route every 8 hours PRN abdominal pain; 30 tablet; Refills: sp4 0, Product Selection Permitted Signatures: Dispatcher [employer] EDMS Blessing Ramos RN RN ha1 Milton Garcia MD MD sp4 Liset Pagan RN RN mt4 Maryam Murillo RN ko1 Corrections: (The following items were deleted from the chart) 03/27 05:55 05:55 CBC+H.LAB.BRZ ordered. EDMS EDMS 05:55 05:55 COMPREHENSIVE METABOLIC PANEL+C.LAB.BRZ ordered. EDMS EDMS 05:55 05:55 LIPASE+C.LAB.BRZ ordered. EDMS EDMS 05:55 05:55 Test, Urine+UC.LAB.BRZ ordered. EDMS EDMS 05:55 05:55 Urinalysis+U.LAB.BRZ ordered. EDMS EDMS 06:31 05:55 Famotidine PO 20 mg PO once ordered. sp4 mt4 06:31 06:27 Famotidine PO 20 mg PO once given. mt4 mt4 06:31 06:28 Famotidine PO 20 mg PO once ordered. mt4 mt4
[2024-03-27 07:40] VITALS: TEMP 99
[2024-03-27 07:41] VITALS: BP 121/79; O2SAT 99
[2024-03-27 09:20] LABS: Blood Morphology Comment NOT SEEN (NOT SEEN); Platelet Estimate ADEQ; White Blood Cell Scan OK (OK)
== END 2024-03-27 07:21 | disposition home or self-care (01) ==
LOC: ER 05:41
DX: A08.4 Viral intestinal infection, unspecified (principal)
CPT/HCPCS: 85025; 81001; 36415; 81025; 83690; 80053; J2405; J7030; 96374; 96375; 99284

== ENCOUNTER 2024-08-10 03:34 | Emergency (ER) | payer OTHER ==
--- OUTSIDE RECORDS SUMMARY | 2024-08-10 03:39 | XMS REPORT | Continuity of Care Document ---
Author Name Unknown Address [address] [facility]. [address] [place] [address] [facility] Address [address] [facility] [address] [place] [address] Care Team Providers Care Sanitation Officer Name Role Phone Mateusz Beckwith Primary Care Physician + [phone] YANIRA PAGE Attending Clinician Unavailable Ynaira Page DNP Attending Clinician [phone] Virginia Joiner MD Attending Clinician + [phone] VIRGINIA JOINER Attending Clinician VIRGINIA Funez Attending Clinician Juliocesar Brown MD Attending Clinician [phone] JULIOCESAR HOUSTON Attending Clinician Unavailable JULIOCESAR HOUSTON Attending Clinician Unavailable Prosper Dugan Attending Clinician Unknown, Attending Attending Clinician Unavailab PROSPER Jacobo Attending Clinician Unavailable Lakisha Cisse Attending Clinician Unavaila ble GC_GCBZW_Kadiyala_S Attending Clinician Unavaila hannah FLEMING Attending Clinician Unavailable JULIOCESAR HOUSTON Admitting Clinician Unavailable Lakisha Cisse Admitting Clinician Unavaila ble GC_GCBZW_Kadiyala_S Admitting Clinician Unavaila hannah Physician, No Primary or Family Admitting Clinic gloria Unavailable LONNIE Admitting Clinician Unavailable Payers Payer Name Policy Type Policy Number Effective Date Expirati on Date Source [facility] [id number] 2011 00:00:00 [place] [facility] [id number] 2018 00:00:00 Problems Condition Name Condition Details Condition Category Status Onset Date Resolution Date Last Treatment Date Treating Clinician Comments Source Nexplanon in place Nexplanon in place Disease Resolve d 08-28 00:00: 00 2024-03-17 00:00:00 2024-03-17 10:54:21 [facility] Breakthrou gh bleeding on Nexplanon Breakthrou gh bleeding on Nexplanon Disease Resolve d 08-28 00:00: 00 2024-03-17 00:00:00 2024-03-17 10:54:20 [facility] Screening for STD (sexually transmitte d disease) Screening for STD (sexually transmitte d disease) Disease Resolve d 08-28 00:00: 2024-03-17 00:00:00 2024-03-17 10:54:23 [facility] Surveillan ce of previously prescribed contracept juan a method Surveillan ce of previously prescribed contracept juan a method Disease Resolve d 08-28 00:00: 00 2024-03-17 00:00:00 2024-03-17 10:54:24 Overview: Formattin g of this note might be different from the original. 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 [facility] BV (bacterial vaginosis) BV (bacterial vaginosis) Disease Resolve d 08-28 00:00: 00 2015-04-24 00:00:00 2015-04-24 16:26:14 [facility] Insertion of implantabl e subdermal contracept juan a Insertion of implantabl e subdermal contracept juan a Disease Resolve d 410 00:00: 00 2014-08-28 00:00:00 2021-12-07 00:29:46 [facility] Rubella immune Rubella immune Disease Resolve d 3-21 00:00: 00 2014-08-28 00:00:00 2014-08-28 09:17:35 [facility] Allergies, Adverse Reactions, Alerts Allergy Name Allergy Type Status Severity Reaction(s) Onset Date Inactive Date Treating Clinician Comments Source No Known Allergie s DA Active U 8-13 00:00: 00 [facility] No Known Allergie s DA Active U 8- 00:00: 00 [facility] No Known Allergie s DA Active U 2021-05 1-22 00:00: 00 [facility] No Known Allergie s DA Active U 2021-05 0-29 00:00: 00 [facility] No Known Allergie s DA Active U 2017-05 2- 00:00: 00 [facility] No Known Allergie s DA Active U 2017-05 00:00: 00 [facility] No Known Allergie s DA Active U 2017-05 0-15 00:00: 00 [facility] No Known Allergie s DA Active U 2016-05 1-13 00:00: 00 [facility] NO KNOWN ALLERGIE S Drug Class Active [facility] Social History Social Habit Start Date Stop Date Quantity Comments Source ASSERTION 2023-04-22 00:00:00 [facility] Sexual orientation U [facility] History of tobacco use Cigarette Smoker [facility] Alcoholic beverage intake 2024-05-09 00:00:00 2024-05-09 00:00:00 Current non-drinker of alcohol (finding) [facility] History of Social function 2024-03-17 00:00:00 2024-03-17 00:00:00 [facility] Tobacco use and exposure 2024-03-17 00:00:00 2024-03-17 00:00:00 Smokeless tobacco non-user [facility] Sex assigned at 1995 00:00:00 1995 00:00:00 [facility] Smoking Status Start Date Stop Date Source Never Smoker [place] Ex-smoker 2024-03-17 00:00:00 2024-03-17 00:00:00 [facility] Medications Ordered Medication Name Filled Medication Name Start Date Stop Date Current Medication? Ordering Clinician Indication Dosage Frequency Signature (SIG) Comments Components Source SERTraline 25 mg tablet 07-21 00:00: 00 Yes [id number] 25mg Take 1 tablet by mouth in the morning. [facility] metroNIDAZO LE 500 mg tablet 2023-05 00:00: 00 Yes [id number] 500mg Take 1 tablet by mouth every 12 (twelve) hours. [facility] Nitrofurant oin&Nit. Macrocryst (MACROBID) 100 mg capsule 2023-05 00:00: 00 Yes [id number] 100mg Take 1 capsule by mouth in the morning and 1 capsule in the evening. [facility] phenazopyri dine (PYRIDIUM) 100 mg tablet 2024-1 2-17 00:00: 00 Yes [id number] 200mg Take 2 tablets by mouth in the morning and 2 tablets at noon and 2 tablets in the evening. [facility] metroNIDAZO LE 500 mg tablet 2023-05 00:00: 00 04-13 05:59 :00 No [id number] 500mg Take 1 tablet by mouth every 12 (twelve) hours for 7 days. [facility] vit,calc76/ iron/folic (PNV 29-1 ORAL) 2023-05 10:12: 44 Yes Take by mouth. [facility] Lidocaine 5 % cream 2023-05 00:00: 00 Yes [id number] Apply to area(s) 2 (two) times daily as needed (vulvar burning). [facility] diphenoxyla te-atropine 2.5-0.025 mg tablet 2023-05 00:00: 00 Yes [facility] ondansetron 8 mg disintegrat ing tablet 2023-05 00:00: 00 Yes DISSOLVE 1 TABLET BY MOUTH EVERY 8 HOURS NEEDED FOR NAUSEA AND VOMITING [facility] fluconazole 150 mg tablet 2023-05 00:00: 00 Yes [id number] Take one tablet PO today, then repeat in 72 hours [facility] SERTraline 25 mg tablet 2023-05 00:00: 00 07-17 00:00 :00 No [id number] 25mg Take 1 tablet by mouth in the morning. [facility] BORA 0.35 mg tablet 02-20 00:00: 00 Yes TAKE 1 TABLET BY MOUTH EVERY DAY FOR 90 DAYS [facility] SERTraline 25 mg tablet 02-20 00:00: 00 03-17 00:00 :00 No TAKE 1 TABLET BY MOUTH EVERY DAY FOR 90 DAYS [facility] Nitrofurant oin&Nit. Macrocryst (MACROBID) 100 mg capsule 100 mg 11-20 22:30: 00 11-20 21:49 :00 No 100mg 100 mg, Oral, ONCE, 1 dose, On Sun 24 at 1730, Routine, Reason for Anti-Infec tive: Documented Infection, Documented Infection Site: Urine, Duration of Therapy: Once (ED) [facility] NaCl 0.9% (NS) IV infusion 1,000 mL 11-20 19:30: 00 Yes 1000mL at 999 mL/hr, IV Infusion, CONTINUOUS , Starting on Wed11/21/23 at 1430, Until Discontinu ed, Routine, X2 liters [facility] Nitrofurant oin&Nit. Macrocryst 100 mg capsule 11-20 00:00: 00 Yes [id number] 100mg Take 1 capsule by mouth in the morning and 1 capsule in the evening. [facility] HYDROcodone -acetaminop hen 5-325 mg tablet 11-01 00:00: 00 11-20 00:00 :00 No [id number] 1/2 - 1 1/2 Q4h PRN pain or cough requiring Narcotic [facility] acyclovir (ZOVIRAX) 5 % ointment 06-20 00:00: 00 Yes [id number] Apply to area(s) 5 (five) times daily. [facility] acetaminoph en-codeine (TYLENOL #3) 300-30 mg tablet 2014-05 00:00: 00 11-20 00:00 :00 No 1{tbl} Take 1 Tab by mouth every 6 (six) hours as needed for Pain (scale 4-6). [facility] ORTHO TRI-CYCLEN- 28 (ORTHO TRI-CYCLEN, 28,) 0.18/0.215/ 0.25 mg-35 mcg (28) tablet 12-20 00:00: 00 11-20 00:00 :00 No 1{tbl} Take 1 Tab by mouth daily. [facility] Flagyl 500 mg tablet Take 1 tablet twice a day by oral route for 7 days. Flagyl 500 mg tablet Take 1 tablet twice a day by oral route for 7 days. No 1 BID Flagyl 500 mg tablet Take 1 tablet twice a day by oral route for 7 days. Caity [facility] Immunizations Ordered Immunization Name Filled Immunization Name Date Status Comments Source TDAP 2013-01-10 00:00:00 Completed TDAP Unknown Completed [facility] Vital Signs Vital Name Observation Time Observation Value Comments S kristyn Systolic blood pressure 2024-05-09 16:12:00 101 mm[Hg] [facility] Diastolic blood pressure 2024-05-09 16:12:00 67 mm[Hg] [facility] Heart rate 2024-05-09 16:12:00 81 /min [facility] Respiratory rate 2024-05-09 16:12:00 18 /min [facility] Body height 2024-05-09 16:12:00 154.9 cm [facility] Body weight 2024-05-09 16:12:00 66.18 [facility] BMI 2024-05-09 16:12:00 27.57 kg/m2 [facility] Oxygen saturation in Arterial blood by Pulse oximetry 2024-05-09 16:12:00 98 /min [facility] Systolic blood pressure 2024-04-04 16:12:00 103 mm[Hg] [facility] Diastolic blood pressure 2024-04-04 16:12:00 70 mm[Hg] [facility] Heart rate 2024-04-04 16:12:00 85 /min Unive [facility] Body temperature 2024-04-04 16:12:00 36.72 Laurie [facility] Body weight 2024-04-04 16:12:00 67.677 kg [facility] BMI 2024-04-04 16:12:00 28.19 kg/m2 [facility] BMI 2024-03-29 20:03:00 28.25 kg/m2 [facility] Oxygen saturation in Arterial blood by Pulse oximetry 2024-03-29 20:03:00 96 /min [facility] Systolic blood pressure 2024-03-29 20:03:00 105 mm[Hg] [facility] Diastolic blood pressure 2024-03-29 20:03:00 71 mm[Hg] [facility] Heart rate 2024-03-29 20:03:00 76 /min Unive [facility] Body temperature 2024-03-29 20:03:00 37.06 Laurie [facility] Respiratory rate 2024-03-29 20:03:00 18 /min [facility] Body weight 2024-03-29 20:03:00 67.813 kg [facility] Systolic blood pressure 2024-03-17 15:29:00 111 mm[Hg] [facility] Diastolic blood pressure 2024-03-17 15:29:00 70 mm[Hg] [facility] Heart rate 2024-03-17 15:29:00 80 /min [facility] Body temperature 2024-03-17 15:29:00 36.78 Laurie [facility] Respiratory rate 2024-03-17 15:29:00 18 /min [facility] Body height 2024-03-17 15:29:00 154.9 cm [facility] Body weight 2024-03-17 15:29:00 68.675 kg [facility] BMI 2024-03-17 15:29:00 28.61 kg/m2 [facility] Heart rate 2023-11-21 21:00:00 97 /min [facility] Oxygen saturation in Arterial blood by Pulse oximetry 2023-11-21 21:00:00 100 /min [facility] Systolic blood pressure 2023-11-21 20:30:00 116 mm[Hg] [facility] Diastolic blood pressure 2023-11-21 20:30:00 65 mm[Hg] [facility] Body temperature 2023-11-21 17:53:00 36.56 Laurie [facility] Respiratory rate 2023-11-21 17:53:00 16 /min [facility] Body height 2023-11-21 17:00:00 154.9 cm [facility] Body weight 2023-11-21 17:00:00 72.576 kg [facility] BMI 2023-11-21 17:00:00 30.23 kg/m2 [facility] BP Diastolic 2019-12-25 00:00:00 67 mm[Hg] [facility] Height 2019-12-25 00:00:00 61 [in_i] [facility] BMI (Body Mass Index) 2019-12-25 00:00:00 21.5 kg/m2 [facility] BP Systolic 2019-12-25 00:00:00 110 mm[Hg] [facility] Body Weight 2019-12-25 00:00:00 114 [lb_av] [facility] BP Diastolic 2019-07-31 00:00:00 70 mm[Hg] [facility] Height 2019-07-31 00:00:00 61 [in_i] [facility] BMI (Body Mass Index) 2019-07-31 00:00:00 21.5 kg/m2 [facility] BP Systolic 2019-07-31 00:00:00 121 mm[Hg] [facility] Body Weight 2019-07-31 00:00:00 114 [lb_av] [facility] BP Diastolic 2019-01-30 00:00:00 79 mm[Hg] [facility] Height 2019-01-30 00:00:00 61 [in_i] [facility] BMI (Body Mass Index) 2019-01-30 00:00:00 22.5 kg/m2 [facility] BP Systolic 2019-01-30 00:00:00 121 mm[Hg] [facility] Body Weight 2019-01-30 00:00:00 119 [lb_av] [facility] Procedures Procedure Date / Time Performed Performing Clinicia n Source POCT URINALYSIS W/O SPECIFIC GRAVITY 2024-05-09 16:17:00 Virginia Joiner [facility] POCT TEST 2024-04-04 00:00:00 Juliocesar Houston [facility] POCT MOLECULAR STREP 2024-03-29 20:01:00 Radha, Keisha meraz [facility] [id number] 2024-01-04 00:00:00 [facility] [id number] 2024-01-04 00:00:00 [facility] [id number] 2024-01-04 00:00:00 [facility] AMYLASE 2023-11-21 19:14:00 Juliocesar Houston [facility] LIPASE 2023-11-21 19:14:00 Juliocesar Houston [facility] COMP. METABOLIC PANEL ([id number]) 2023-11-21 19:14:00 Juliocesar Houston [facility] CBC WITH DIFF 2023-11-21 19:14:00 Juliocesar Houston [facility] URINALYSIS 2023-11-21 17:41:00 Juliocesar Houston [facility] ADC ONLY - FERN TEST 2023-11-21 17:41:00 Cassandra Houstonen Santana [facility] [id number] 2022-04-15 00:00:00 [facility] [id number] 2022-04-15 00:00:00 [facility] Plan of Care Planned Activity Planned Date Details Comments Source Diagnostic Test Pending 2019-12-25 00:00:00 RPR (rapid plasma reagin), serum [code = RPR (rapid plasma reagin), serum] [facility] Diagnostic Test Pending 2019-12-25 00:00:00 HIV 1+2 AB + HIV 1 p24 Ag, qualitative immunoassay, serum [code = HIV 1+2 AB + HIV 1 p24 Ag, qualitative immunoassay, serum] [facility] Diagnostic Test Pending 2019-12-25 00:00:00 HBsAg (hepatitis B surface Ag), EIA, serum [code = HBsAg (hepatitis B surface Ag), EIA, serum] [facility] Diagnostic Test Pending 2019-12-25 00:00:00 cytology report, thin prep, smear or scraping, cervical or vaginal [code = cytology report, thin prep, smear or scraping, cervical or vaginal] [facility] Encounters Start Date/Time End Date/Time Encounter Type Admission Type Attending Clinicians Care Facility Care Department Encounter ID Source 2023-11-21 17:00:25 Outpatient X RUST DAHLIA [id number] [facility] 2024-07-17 00:00:00 2024-07-21 21:04:15 [facility] 1..840.114 350.1.13.10 4.2.7.2.686 [id number] [facility] 2024-05-11 00:00:00 2024-05-11 08:10:36 Case Management Huma Kraussol [facility] 1..840.114 350.1.13.10 4.2.7.2.686 [id number] [facility] 2024-05-09 10:00:00 2024-05-09 10:26:28 Outpatient R [facility] [facility] [id number] [facility] 2024-05-09 10:00:00 2024-05-09 10:26:28 Office Visit Huma Kraussol [facility] 1..840.114 350.1.13.10 4.2.7.2.686 [id number] [facility] 2024-04-05 00:00:00 2024-04-05 19:30:24 Case Management Juliocesar Houston [facility] 1..840.114 350.1.13.10 4.2.7.2.686 [id number] [facility] 2024-04-04 10:00:00 2024-04-04 10:30:55 Outpatient R CASSANDRA HOUSTONMARVEL HOUSTON JULIOCESAR [facility] [id number] [facility] 2024-04-04 10:00:00 2024-04-04 10:30:55 Office [facility]esar [facility] 1.2.840.114 350.1.13.10 4.2.7.2.686 [id number] [facility] 2024-03-31 09:30:00 2024-03-31 09:30:00 Outpatient R CAMILO YANIRA [facility] [id number] [facility] 2024-03-29 14:00:00 2024-03-29 14:20:00 Urgent Care Prosper Frankel Unknown, Attending [facility] 1.2.840.114 350.1.13.10 4.2.7.2.686 [id number] [facility] 2024-03-29 14:00:00 2024-03-29 14:00:00 Outpatient R PROSPER FRANKEL [facility] [id number] [facility] 2024-03-17 10:15:00 2024-03-17 11:16:22 Outpatient R MARGYVINCENZO YANIRA [facility] [id number] [facility] 2024-03-17 10:15:00 2024-03-17 11:16:22 Office Visit Yanira Page [facility] 1..840.114 350.1.13.10 4.2.7.2.686 [id number] [facility] 2024-01-04 10:57:00 2024-01-06 12:25:00 Inpatient EL Lakisha Cisse [facility] [id number] [facility] 2023-12-25 13:47:00 2023-12-25 14:56:00 Emergency EM Lakisha Cisse [facility] [id number] [facility] 2023-12-23 23:31:00 2023-12-24 02:46:00 Emergency EM Lakisha CisseWH LOPEZ [id number] [facility] 2023-12-22 12:47:00 2023-12-22 12:47:00 Outpatient Lakisha Marinelli [facility] [id number] [facility] 2023-11-21 12:00:00 2023-11-21 16:50:00 Outpatient X HOUSTONCASSANDRAJULIOCESAR BECKMAN RUST DAHLIA [id number] [facility] 2023-11-21 12:00:00 2023-11-21 16:50:00 Emergency ReeseJuliocesar [facility] 1.2.840.114 350.1.13.10 4.2.7.2.686 [id number] [facility] 2023-08-30 12:37:00 2023-08-30 12:37:00 Outpatient Lakisha Marinelli [facility] [id number] [facility] 2023-03-21 00:00:00 2023-03-21 00:00:00 Outpatient GC_GCBZW_Ka diyala_S [facility] [id number] [facility] 2022-04-14 21:31:00 2022-04-17 12:22:00 Inpatient Lakisha CastilloWH OBPP [id number] [facility] 2022-03-28 02:07:00 2022-03-28 05:38:00 Emergency EM Lakisha CisseWH LOPEZ [id number] [facility] 2022-03-21 13:05:00 2022-03-21 16:44:00 Emergency EM Lakisha CisseWH LOPEZ [id number] [facility] 2021-12-23 09:53:00 2021-12-23 09:53:00 Outpatient Lakisha Marinelli [facility] [id number] [facility] 2019-12-25 04:05:00 2019-12-25 04:05:00 Outpatient LISTER_MELI [facility] [id number] [facility] 2019-12-25 00:00:00 2019-12-25 00:00:00 Carla Abreu, SLEEVE TURNER: [address], [place] [address] , Ph. [facility] [place] [facility] [place] [facility] - MEHOP GUNSM[employer] APPRENTICE [id number] [facility] 2019-12-23 01:03:00 2019-12-23 01:03:00 Outpatient LISTER_MELI [facility] [id number] [facility] 2019-12-19 01:28:00 2019-12-19 01:28:00 Outpatient LISTER_MELI [facility] [id number] [facility] 2019-08-01 02:35:00 2019-08-01 02:35:00 Outpatient LISTER_MELI [facility] [id number] [facility] 2019-07-31 12:17:00 2019-07-31 12:17:00 Outpatient LISTER_MELI [facility] [id number] [facility] 2019-07-31 00:00:00 2019-07-31 00:00:00 Carla Abreu, SLEEVE TURNER: [address], [place] [address] , Ph. [facility] [place] [facility] [place] [facility] - MEHOP G[employer]SM[employer] APPRENTICE [id number] [facility] 2019-01-30 00:00:00 2019-01-30 00:00:00 Carla Abreu, SLEEVE TURNER: [address], [place] [address] , Ph. [facility] [place] [facility] - MEHOP GUNSMITH APPRENTICE [id number] [place] [facility] Results Test Description Test Time Test Comments Results Result Co mments Source [facility] [id number] 16:34:00* Test Item Value Reference Range Interpretation Comme nts POCT PREG (test code = 1605) Negative On board controls acceptable with C Line (test code = 3574) Yes POCT PREG LOT # (test code = 3575) POCT PREG TEST DATE ( test code = 3576) [facility] MOLECULAR [id number] 20:08:56* Test Item Value Reference Range Interpretation Comme nts POCT Molecular Strep (test c ode = 87626-4) Negative Negative Lab Interpretation (test cod e = 47973-3) Normal [facility] [id number] 06:23:00* Test Item Value Reference Range Interpretation Comme nts HEMOGLOBIN (test code = HGB) 11.8 g/dL 10.1-13.8 N HEMATOCRIT (test code = HCT) 35.6 % 32.5-41.8 N AG HEPATITIS B [id number] 13:17:00* Test Item Value Reference Range Interpretation Comme nts AG HEPATITIS B SURFACE (test code = HBSAG) NONREACTIVE NONREACTIVE AB HEPATITIS C [id number] 13:17:00* Test Item Value Reference Range Interpretation Comme nts AB HEPATITIS C (test code = HCVAB) NONREACTIVE NONREACTIVE SIGNAL TO CUTOFF (test code = CUTOFF) <0.02 <0.80 N AB [id number] 13:17:00* Test Item Value Reference Range Interpretation Comme nts AB TREPONEMA (test code = TREPAB) NONREACTIVE NONREACTIVE AB HIV 1 13:17:00* Test Item Value Reference Range Interpretation Comme nts AB HIV 1 2 (test code = PFH99TH) NONREACTIVE NONREACTIVE Done by [employer] 4[employer] Gen HIV Ag/Ab Combo Screen CBC W/AUTO [id number] 12:11:00* Test Item Value Reference Range Interpretation [...] 0.0 K/mm3 UA RFLX MICR CULT IF [id number] 00:41:00* Test Item Value Reference Range Interpretation [...] PainSpecimen Description: CLEAN CATCH- US PREG AFTER [id number] 07:09:00 [facility] 1995 Sex: F Patient Name: TIFFANY RUFFIN Unit No: [id number] EXAMS: CPT CODE: [id number] US PREG AFTER TRI 18027 Indication ======== anatomy survey History ====== OB History 6. Para 3 Method ====== Transabdominal ultrasound examination ========= Leslie . Number of fetuses: 1 Dating ====== Date Details Gest. age TABITHA Stated TABITHA 20 w + 4 d 01/13/2024 U/S 08/30/2023 based upon AC, BPD, Femur, HC, Humerus 20 w + 3 d 01/14/2024 Assigned dating based on stated TABITHA, selected on 08/30/2023 20 w + 4 d 01/13/2024 General Evaluation Cardiac activity present. FHR 149 bpm. movements: visualized. Presentation: Variable Placenta: Placental site: no previa, Grade 1, anterior Umbilical cord: Cord vessels: 3 vessel cord, normal insertion, normal, 3 vessel cord Amniotic fluid: Amount of AF: normal, normal Biometry BPD 45.4 mm 19w 5d 17% HadlockHC 175.5 mm 20w 0d 20% Hadlock AC 151.5 mm 20w 3d 37% Hadlock Femur 34.3 mm 20w 6d 49% Hadlock Humerus 32.8 [facility] NAME: TIFFANY RUFFIN Radiology Department PHYS: LINSEY Mary son,Lakisha Rosales [address] : 1995 AGE: 28 SEX: F [place], [place] [address] LOC: F.RAD PHONE #: [phone] EXAM DATE: 08/30/2023 STATUS: DEP CLI FAX #: [phone] RAD NO: Page 1 Signed Report (CONTINUED) Patient Name: TIFFANY RUFFIN Unit No: [id number] EXAMS: CPT CODE: [id number] PREG AFTER 1ST TRI 15530 (Continued) mm 21w 0d 67% Brian HC / AC 1.16 51% Hadlock Weight Calculation: EFW 357 g 20w 3d 40% Hadlock EFW (lb,oz) 0 lb 13 oz EFW by Hadlock ([id number]) Head / Face / Neck Biometry: Cephalic index 0.69 <1% Nicolaides Extremities / Bony StrucBiometry: FL / BPD 0.76 86% Hadlock FL / HC 0.20 85% Hadlock FL / AC 0.23 67% Hadlock Anatomy The following structures appear normal: Head / Neck Cranium. Lateral ventricles. Choroid plexus. Midline falx. Cavum septi pellucidi. Cerebellum. Cisterna magna. Face Lips. Profile. Nose. Nasal bone. Orbits. Heart / Thorax 4-chamber view. RVOT view. LVOT view. 3-vessel view. Abdomen Cord insertion. Stomach: left- sided. Kidneys. Bladder. Genitals. Spine Cervical spine. Thoracic spine.Lumbar spine. Sacral spine. The following structures were visualized: Extremities / Skeleton Arms. Hands. Legs. Feet. sex: . Maternal Structures Cervix Visualized Cervical length 3.6 cm Right Ovary Visualized Size 2.7 cm x 1.9 cm x 1.6 cm. Vol 4.3 cm Left Ovary Visualized Size [facility] NAME: JASPAL RUFFINYLYNN Radiology Department PHYS: Lakisha Pierre MD [address] : 1995 AGE: 28 SEX: F [place] [address] LOC: Janes.RAD PHONE #: [phone] EXAM DATE: 08/30/2023 STATUS: DEP CLI FAX #: [phone] RAD NO: Page 2 Signed Report (CONTINUED) Patient Name: TIFFANY RUFFIN Unit No: [id number] EXAMS: CPT CODE: [id number] US PREG AFTER 1ST TRI 34971 (Continued) 2.8 cm x 2.3 cm x 2.1 cm. Vol 7.0 cm Cyst(s) Size 2.1 cm x 1.1 cm x 1.8 cm. Mean 1.67 cm. Vol 2.177 cm Impression ========= weight percentile is 40%. No anomalies visualized. at 0709 Reported and signed by: Mata Baker MD CC: Lakisha Cisse MD Technologist: Janae Kennedy RDMS Probe: Trnscrbd D/ (708) GCD.CPS Orig Print D/T: S: 09/01/2023 (708) [facility] NAME: JASPAL RUFFINYLYNN Radiology Department PHYS: Lakisha Pierre MD [address] : 1995 AGE: 28 SEX: F [place], [place] [address] LOC: F.RAD PHONE#: [phone] EXAM DATE: 08/30/2023 STATUS: DEP CLI FAX #: [phone] RAD NO: Page 3 Signed Report Patient Name: TIFFAYN RUFFIN Unit No: [id number] EXAMS: CPT CODE: [id number] US PREG AFTER 1ST TRI 13222 (Continued) [facility] NAME: TIFFANY RUFFIN Radiology Department PHYS: Lakisha Pierre MD [address] : 1995 AGE: 28 SEX: F [place], [place] [address] LOC: MargaritoRAD PHONE #: [phone] EXAM DATE: 08/30/2023 STATUS: DEP CLI FAX #: [phone] RAD NO: Page 4 Signed ReportHGB [id number] 04:46:00* Test Item Value Reference Range Interpretation Comme nts HEMOGLOBIN (test code = HGB) 9.7 g/dL 10.1-13.8 L HEMATOCRIT (test code = HCT) 30.3 % 32.5-41.8 L AG HEPATITIS B [id number] 00:01:00* Test Item Value Reference Range Interpretation Comme nts AG HEPATITIS B SURFACE (test code = HBSAG) NONREACTIVE NONREACTIVE AB HEPATITIS C [id number] 00:01:00* Test Item Value Reference Range Interpretation Comme nts AB HEPATITIS C (test code = HCVAB) NONREACTIVE NONREACTIVE SIGNAL TO CUTOFF (test code = CUTOFF) 0.12 <0.80 N RUBELLA [id number] 00:01:00* Test Item Value Reference Range Interpretation Comme nts RUBELLA SCREEN (test code = RUBSC) 174.3 IUnit/ml Results >10.0IUn its/ml are considered positive inaccordance with the CLSI guidelines and based on the WHO International Standard for Anti-Rubella serum as anindicator of immune status and a breakpoint to detect mostseropositive persons. AB [id number] 00:01:00* Test Item Value Reference Range Interpretation Comme nts AB TREPONEMA (test code = TREPAB) NONREACTIVE NONREACTIVE AB HIV 1 00:01:00* Test Item Value Reference Range Interpretation Comme nts AB HIV 1 2 (test code = YPH82TZ) NONREACTIVE NONREACTIVE Done by [employer] 4[employer] Gen HIV Ag/Ab Combo Screen CBC W/AUTO [id number] 23:42:00* Test Item Value Reference Range Interpretation [...] (test code = PLTMR) NORMAL NORMAL URINALYSIS [id number] 16:42:00* Test Item Value Reference Range Interpretation [...] RARE NONE SEEN URINE SAMPLE: CLEAN CATCHURINALYSIS [id number] 14:09:00* Test Item Value Reference Range Interpretation [...] URINE SAMPLE: CLEAN CATCH- US PREG AFTER [id number] 00:00:00 [facility] 1995 Sex: F Patient Name: TIFFANY RUFFIN Unit No: [id number] EXAMS: CPT CODE: [id number] US PREG AFTER TRI 18401 PROCEDURE INFORMATION: Exam: US After First Trimester, Transabdominal Exam date and time: 12/23/2021 10:15 AM Age: 26 years old Clinical indication: Screening exam; Routine US, uterus; Additional info: Anatomy LABS AND CLINICAL REPORTS: Last menstrual period start date: 08/01/2021 Estimated due date (Established): 05/08/2022 TECHNIQUE: Imaging protocol: Real- time transabdominal obstetrical ultrasound of the maternal pelvis and a second or third trimester with imagedocumentation. COMPARISON: OT US PREG AFTER TRI 02/07/2018 11:39 AM FINDINGS: LMP: 08/01/2021 Evelin LMP/Known TABITHA: 20 weeks 4 days GA by current US: 20 weeks 0 days TABITHA based on current exam: 05/12/2022 Measurements: BPD: 4.42 cm /GA 19 weeks 3 days, Hadlock HC: 17.00 cm /GA 19 weeks 4 days, Hadlock AC: 15.97 cm /GA 21 weeks 1 day, Hadlock FL: 3.17 cm /GA 19 weeks 6 days, Hadlock HL: 3.04 cm /GA 20 weeks 0 days, Brian Ratios: FL/BPD : 71.70 FL/AC : 19.82, Range: (20-24) HC/AC : 1.06, Range : (1.08-1.25) CI : 71.98, Range : (70-86) weight estimate: Weight: 350.24 grams, HadlockWeight: 0 lbs, 12 oz Heart rate: 136 bpm Clinical Summary: Type of Gestation: Leslie. Intrauterine in breech presentation. motion and organs seen: heart motion seen. [facility] NAME: TIFFANY RUFFIN Radiology Department PHYS: Anibal Pierre MD [address] : 1995 AGE: 26 SEX: [place] [address] LOC: MargaritoRAD PHONE #: [phone] EXAM DATE: 12/23/2021 STATUS: REG CLI FAX #: [phone] RAD NO: Page 1 Signed Report (CONTINUED) Patient Name: TIFFANY RUFFIN Unit No: [id number] EXAMS: CPT CODE: [id number] US PREG AFTER 1ST TRI 40039 (Continued) body and limb movements seen. Four chamber heart observed. Left ventricular outflow tract (LVOT) seen. Right ventricular outflow tract (RVOT) seen. Normal intracranial anatomy seen. face and nasal bone seen. Umbilical cord insertion in fetus seen. stomach, Renal fossa, Bladder and Spine seen. Three vessel umbilical cord noted. abnormalities observed: None seen at this exam. Placenta location: Anterior. Placenta maturity: Grade 1. There is no evidence of placenta previa. Amniotic fluid volume is adequate. Uterus and adnexa:No significant abnormality is seen. Maternal Anatomy: Cervical length: 3.5 cm IMPRESSION: Single live intrauterine gestation. at 1127 Reported and signed by: Mata Baker MD CC: Lakisha Cisse MD Technologist: Gwen Kelly RDMSProbe: Trnscrbd D/ (112) GCD.CPS Orig Print D/T: S: 12/23/2021 (1127) [facility] NAME: TIFFANY RUFFIN Radiology Department PHYS: Lakisha Pierre MD [address] : 1995 AGE: 26 SEX: F [place] [address] LOC: MargaritoRAD PHONE #: [phone] EXAM DATE: 12/23/2021 STATUS: REG CLI FAX #: [phone] RAD NO: Page 2 Signed Report Patient Name: TIFFANY RUFFIN Unit No: [id number] EXAMS: CPT CODE: [id number] US PREG AFTER 1ST TRI 82460 (Continued) [facility] NAME: JASPAL RUFFINYLYNN Radiology Department PHYS: Lakisha Pierre MD [address] : 1995 AGE: 26 SEX: F [place], [place] [address] LOC: Janes.RAD PHONE #: [phone] EXAM DATE: 12/23/2021 STATUS: REG CLI FAX #: [phone] RAD NO: Page 3 Signed Report Urinalysis macro (dipstick) panel - [id number] 10:51:00* Test Item Value Reference Range Interpretation Comme nts Leukocytes (test code = Leukocytes) trace Nitrite (test code = Nitrite) negative Urobilinogen (test code = Urobilinogen) 0.2 Protein (test code = Protein) negative pH (test code = pH) 7.5 Blood (test code = Blood) trace-lysed Specific Carefree (test code = Specific Carefree) 1.020 Ketone (test code = Ketone) negative Bilirubin (test code = Bilirubin) negative Glucose (test code = Glucose) negative Appearance (test code = Appearance) clear Color (test code = Color) yellow [facility] Notes Date/Time Note Provider Source 2024-07-19 10:51:46 Patient requesting refills of Zoloft. Last OV on 03/17/24: 6. Post depression - SERTraline 25 mg tablet; Take 1 tablet by mouth in the morning. Dispense: 90 tablet; Refill: 0 - Consult/Referral Psychiatry Adult EPDS- 8, AMALIA-7 score-9. Denies SI/HI Patient did not see psychiatry. Will send to provider for review. Rian Hwang RN 07/19/2024 10:53 AM DING ARCHITECTURAL DESIGNER Rian Hwang RN [facility] 2024-01-05 13:02:00 [facility] OB Disch REPORT#:[id number] REPORT STATUS: Signed REPORT INITIALIZATION DATE:01/05/24 TIME: 1302 PATIENT: TIFFANY RUFFIN UNIT #: [id number] ROOM/BED: [facility] : [birth year] AGE: 28 SEX: F ATTEND: [...] B/P 103/68 01/04 0748 Temp 97.8 01/04 07 Pulse 72 01/04 0748 Resp 18 01/04 [...] % (Auto) (14.5 - 29.7 %) 15.2 Cidra % (Auto) (3.6 - 10.2 %) 7.3 Eos % (Auto) (0.0 - 3.0 %) 0.4 Baso % (Auto) (0.1 - 0.9 %) 0.3 Neut # (Auto) (K/mm3) 10.4 Lymph # (Auto) (K/mm3) 2.1 Cidra # (Auto) (K/mm3) 1.0 Eos # (Auto) [...] EFM. Labor course , delivery, information about infant: [see delivery note]. The patient was taken [...] of single liveborn infant 2. Term delivered 3. Term Free Text [...] noted below under Provider comments. Delivery date infant A: 01/04/24 Delivery time infant A: 2102 Birthweight (gm) A: 3190 Feeding preference: Gender A: Female 1 minute infant A: 5 minutes A: 10 minutes A: Provider comments on imported nursing data: [...] Physician: Attending Physician: Lakisha Cisse MD Phone: [phone] Attending physician follow up timeframe: In 5-6 weeks at 1309 RPT #:[id number] END OF REPORT [facility] 2024-01-05 12:54:00 [facility] ([facility]) OB Postpart Progr Note REPORT#:[id number] REPORT STATUS: Signed REPORT INITIALIZATION DATE:01/05/24 TIME: 1254 PATIENT: TIFFANY RUFFIN UNIT #: [id number] ROOM/BED: [address] : [birth year] AGE: 28 SEX: F [...] 01/04 0748 97.8 72 18 103/68 98 / 0417 98.0 86 18 103/63 98 / 2330 89.0 08/ 2330 98.5 95 18 120/74 97 08/ 2229 78.0 08 2229 90 123/54 / 2214 85.0 08/ 2214 169 115/59 08/ 2159 76.0 08/ 2159 87 114/59 08/ 2144 82.0 08/ 2144 94 115/58 / 2129 85.0 08/ 2129 105 109/71 / 2115 18 / 2114 76.0 08/ 2114 100 115/56 08/ 2106 83.0 08/ 2106 93 123/58 / 2052 87.0 08/ 2052 103 128/62 08/ 2036 87.0 08/ 2036 82 125/65 08/ 2021 92.0 08/ 2021 84 127/70 08/ 2006 82.0 08/ 2006 84 115/57 08/13 1953 80.0 08/ 1953 80 118/56 08/13 1936 84.0 08/ 1936 83 120/60 08/ 1922 77.0 08/ 1922 83 111/53 08/13 1915 98.4 16 08/ 1906 75.0 08/ 1906 82 106/55 08/13 1852 82.0 08/ 1852 81 114/57 08/13 1836 81.0 08/13 1836 86 113/58 08/13 1820 82.0 08/13 1820 85 110/65 08/13 1819 97.7 83 18 91 08/ 1816 85 98 08/ 1815 79.0 08/ 1815 82 113/58 08/13 1811 85 98 08/13 1810 75.0 08/13 1810 80 103/59 08/13 1807 71.0 08/13 1807 81 97/56 08/13 1806 84 98 08/ 1804 78.0 01/03 1804 89 102/59 01/03 1801 77.0 01/03 1801 87 103/57 97 01/03 1759 69.0 01/03 1759 93 93/50 01/03 1754 76.0 01/03 1754 103 106/58 01/03 1443 77.0 01/03 1443 90 114/58 01/03 1442 98.5 18 PATIENT WEIGHT: Weight (lb): 132 Weight (oz): Weight (kg): 60.000 Physical Exam Cardiac: normal sinus rhythm Lungs: clear to auscultation Neuro: Exam: alert, oriented x3 Abdomen: soft, no abnormal tenderness Fundus: firm, below the umbilicus, non-tender Lochia: normal Lacerations: Perineal laceration(s): none High vaginal laceration: no Lower extremities: Edema: none Calf tenderness: negative Result Findings/Data: Laboratory Tests: 01/04 0617 Hematology Hgb (10.1 - 13.8 g/dL) 11.8 Hct (32.5 - 41.8 %) 35.6 Results: labs reviewed Diagnosis, Assessment Plan Diagnosis, Assessment Plan Problem List/A P: 1. Delivery outcome of single liveborn 2. Term delivered Free text A P: s/p NVD - recovering well Assessment: nml progress Plan: routine care, discharge tomorrow Consultation(s): Consultation performed: anesthesia Reason for consultation: epidural Plan discussed with: patient Time spent: Time spent on patient care (minutes): 30 >50% spent on counseling/coordination of care: yes at [address] [place] [address] #[phone] END OF REPORT [facility] 2024-01-04 21:10:00 [facility]) OB Delivery Note REPORT#:[id number] REPORT STATUS: Signed REPORT INITIALIZATION DATE:01/04/24 TIME: 2109 PATIENT: TIFFANY RUFFIN UNIT #: [id number] ROOM/BED: [address] : [birth year] AGE: 28 SEX: [...] risk score: Delivery date A: Delivery time A: Birthweight (gm) infant A: Weight (lb) infant A: Weight (oz) A: Gender A: Female 1 minute A: 5 minutes infant A: 10 minutes infant A: Cord pH obtained A: Vacuum time A: Vacuum # pulls A: Vacuum # popoffs A: QBL at delivery: __ Provider comments on imported nursing data: [] Pre-delivery GBS status: GBS status: negative Carlin evaluation at delivery: NRP certified personnel Admission [...] o maternal abdomen for skin to kin. Infant had spontaneous cry, RR, HR, color and tone. after 60 secdelay cord clamped and cut by Dad. Cord blood collected. Placenta delivered intact. Uetrine cavity empty. Uterus firm with massage/IV pitocin. no lacerations of cervix, sidewall or perineum. Infant/mom tolerated delivery well. All lap and instrument counts correct x2. All present please with outcome foe Baby Aria. at 2116 RPT #:[id number] END OF REPORT [facility] 2024-01-04 19:33:00 [facility] ([facility]) Clinical Note REPORT#:[id number] REPORT STATUS: Signed REPORT INITIALIZATION DATE:01/04/24 TIME: 1932 PATIENT: TIFFANY RUFFIN UNIT #: [id number] ROOM/BED: [address] : 97 AGE: 28 SEX: F ATTEND: Lakisha Cisse MD ADM AUTHOR: Love Krishnan MD REPT SERVICE DT/TIME: 01/04/241932 * ALL edits or amendments must be made on the electronic/computer document * Clinical Note Note: Asked to place IUPC. SVE /3. Placed in usual fashion without difficulty. Patient tolerated well. at 1933 RPT #:[id number] END OF REPORT [facility] 2024-01-04 14:43:00 [facility] ([facility]) OB Admission / H P REPORT#:[id number] REPORT STATUS: Signed REPORT INITIALIZATION DATE:01/04/24 TIME: 1442 PATIENT: TIFFANY RUFFIN UNIT #: [id number] ROOM/BED: [address] : [birth year] AGE: 28 SEX: F ATTEND: Lakisha Cisse MD ADM AUTHOR: Lakisha Cisse MD REPT SERVICE DT/TIME: 01/04/241442 * ALL edits or amendments must be [...] % (Auto) (14.5 - 29.7 %) 15.2 Cidra % (Auto) (3.6 - 10.2 %) 7.3 Eos % (Auto) (0.0 - 3.0 %) 0.4 Baso % (Auto) (0.1 - 0.9 %) 0.3 Neut # (Auto) (K/mm3) 10.4 Lymph # (Auto) (K/mm3) 2.1 Cidra # (Auto) (K/mm3) 1.0 Eos # (Auto) [...] counseling/coordination of care: yes at 1449 RPT #:[id number] END OF REPORT [facility] 2023-11-21 11:58:42 Patient arrived in wheelchair. Contractions about 5 minutes apart started about 40 minutes ago. 32 weeks. . Cristi you Gave report to Michelle. Esteafnía Fuentes RN [facility] 2022-04-17 08:45:00 [facility]) OB Postpart Progr Note REPORT#:[id number] REPORT STATUS: Signed DATE:04/17/22 TIME: 0845 PATIENT: TIFFANY RUFFIN UNIT #: [id number] ROOM/BED: : 97 AGE: 27 SEX: F [...] Weight (lb): 155 Weight (oz): Weight (kg): 70.322259 DAY #2 SUBJECTIVE: No complaints. Scant lochia. [...] delivered 5. Delivery outcome of single liveborn Free text A P: 27 yo at 36w3d admitted for labor. Vitals wnl. FHT Cat I. GBS negative. -s/p NVD - recovering well Assessment: nml progress Plan: routine care, discharge today Plan discussed with: patient, spouse/partner Time spent: Time spent on patient care (minutes): 20 >50% spent on counseling/coordination of care: yes at 0846 RPT #:[id number] END OF REPORT [facility] 2022-04-16 09:50:00 [facility] OB Postpart Progr Note REPORT#:[id number] REPORT STATUS: Signed DATE:04/16/22 TIME: 0950 PATIENT: TIFFANY RUFFIN UNIT #: [id number] ROOM/BED: : 97 AGE: 27 SEX: F [...] 18 101/64 04/15 2347 98.2 92 18 101/64 76.0 97 Room air DAY #1 SUBJECTIVE: No complaints. Scant lochia. Tolerating a regular diet. Ambulatory. Voiding spontaneously. Nursing. OBJECTIVE: Vital signs stable. Afebrile Fundus is firm, low and nontender. Perineum/suture sites are healing well and intact. Laboratory Tests: 04/16 0400 Hematology Hgb (10.1 - 13.8 g/dL) 9.7 [...] tomorrow Plan discussed with: patient, spouse/partner at 0952 RPT #:[id number] END OF REPORT [facility] 2022-04-15 17:46:00 [facility] ([facility]) OB Delivery Note REPORT#:[id number] REPORT STATUS: Signed DATE:04/15/22 TIME: 1746 PATIENT: TIFFANY RUFFIN UNIT #: [id number] ROOM/BED: [address] : 97 AGE: 27 SEX: F [...] for Hemorrhage. Delivery date A: Delivery time A: Birthweight (gm) infant A: Weight (lb) infant A: Weight (oz) A: Gender infant A: Male 1 minute infant A: 5 minutes infant A: 10 minutes infant A: Cord pH obtained A: Vacuum time A: Vacuum # pulls infant A: Vacuum # popoffs infant A: QBL [...] A information Delivery date: 04/15/22 Delivery time: 1734 status: live born Wt of baby (grams): [...] No Mother's condition: mother stable Infant's condition: stable in room Lacerations: Perineal laceration(s): [...] noted. All lap instrument counts correct x2. Mother/ tolerated delivery well. at 1751 RPT #:[id number] END OF REPORT [facility] 2022-04-15 08:57:00 [facility] ([facility]) OB Intrapart Prog Note REPORT#:[id number] REPORT STATUS: Signed DATE:04/15/22 TIME: 0857 PATIENT: TIFFANY RUFFIN UNIT #: [id number] ROOM/BED: [address] : 97 AGE: 27 SEX: F [...] WEIGHT: Weight (lb): Weight (oz): Weight (kg): 70.045463 Objective Cervical/ exam: Dilatation (cm): 4 Effacement [...] category 1 Result Findings/Data: Laboratory Tests: 04/14 04/14 2227 1625 Hematology WBC (6.5 - 12.3 K/mm3) [...] % (Auto) (14.5 - 29.7 %) 14.5 Cidra % (Auto) (3.6 - 10.2 %) 5.4 Eos % (Auto) (0.0 - 3.0 %) 0.4 Baso % (Auto) (0.1 - 0.9 %) 0.3 Neut # (Auto) (K/mm3) 15.2 Lymph # (Auto) (K/mm3) 2.8 Cidra # (Auto) (K/mm3) 1.1 Eos # (Auto) (K/mm3) 0.07 Baso # (Auto) (K/mm3) 0.1 Serology Treponema pallidum Ab (NONREACTIVE) NONREACTIVE Hep Bs Antigen (NONREACTIVE) NONREACTIVE Hepatitis C Antibody (NONREACTIVE) NONREACTIVE Hep C Ab Signal/Cutoff (<0.80) 0.12 HIV 1 2 Antibody (NONREACTIVE) NONREACTIVE Rubella Screen (IUnit/ml) 174.3 Urines Urine Color (YELLOW) YELLOW Urine Appearance (CLEAR) CLEAR Urine pH (5 - 9) 8.0 Ur Specific Carefree (1.001 - 1.035) 1.011 Urine Protein (NEG) [...] with: patient, spouse/partner, nurse at 0900 RPT #:[id number] END OF REPORT [facility] 2022-04-15 05:26:00 [facility] ([facility]) OB Intrapart Prog Note REPORT#:[id number] REPORT STATUS: Signed DATE:04/15/22 TIME: 05 PATIENT: TIFFANY RUFFIN UNIT #: [id number] ROOM/BED: [address] : 97 AGE: 27 SEX: F [...] Result Date Time Pulse Ox 98 04/15 458 Pulse 93 04/15 458 B/P Mean 56.0 04/15 409 B/P 80/43 04/15 409 Temp 98.4 04/15 310 Resp 18 04/15 310 Vital Signs Date Temp Pulse Resp B/P B/P Mean Pulse Ox FiO2 04/14-04/15 98.4-98.6 89-112 18 80-120/43-68 56.0-85.0 94-98 PATIENT WEIGHT: Weight (lb): Weight (oz): Weight (kg): 70.486488 Vital Signs: Date Time Temp Pulse Resp B/P B/P Pulse O2 O2 Flow FiO2 Mean Ox Delivery Rate 04/15 458 93 98 04/15 453 105 96 04/15 448 107 98 04/15 443 96 94 04/15 438 94 94 04/15 437 98 94 04/15 433 96 94 04/15 0431 92 94 04/15 [...] 0110 77.0 04/15 0110 93 110/60 04/15 0015 68.0 04/15 0015 91 97/50 04/15 0013 65.0 04/15 0013 96 87/52 04/14 2308 79.0 04/14 2308 93 109/59 04/14 191 85.0 04/14 1913 98.6 112 120/68 Objective [...] category 1 Result Findings/Data: Laboratory Tests: 04/14 04/14 2227 1625 Hematology WBC (6.5 - 12.3 K/mm3) [...] % (Auto) (14.5 - 29.7 %) 14.5 Cidra % (Auto) (3.6 - 10.2 %) 5.4 Eos % (Auto) (0.0 - 3.0 %) 0.4 Baso % (Auto) (0.1 - 0.9 %) 0.3 Neut # (Auto) (K/mm3) 15.2 Lymph # (Auto) (K/mm3) 2.8 Cidra # (Auto) (K/mm3) 1.1 Eos # (Auto) (K/mm3) 0.07 Baso # (Auto) (K/mm3) 0.1 Serology Treponema pallidum Ab (NONREACTIVE) NONREACTIVE Hep Bs Antigen (NONREACTIVE) NONREACTIVE Hepatitis C Antibody (NONREACTIVE) NONREACTIVE Hep C Ab Signal/Cutoff (<0.80) 0.12 HIV 1 2 Antibody (NONREACTIVE) NONREACTIVE Rubella Screen (IUnit/ml) 174.3 Urines Urine Color (YELLOW) YELLOW Urine Appearance (CLEAR) CLEAR Urine pH (5 - 9) 8.0 Ur Specific Carefree (1.001 - 1.035) 1.011 Urine Protein (NEG) [...] placement -Continuous EFM, IUPC at 0538 RPT #:[id number] END OF REPORT [facility] 2022-04-15 01:12:00 [facility] ([facility]) OB Admission / H P REPORT#:[id number] REPORT STATUS: Signed DATE:04/15/22 TIME: 111 PATIENT: TIFFANY RUFFIN UNIT #: [id number] ROOM/BED: [address] : 97 AGE: 27 SEX: F [...] Result Date Time B/P Mean 68.0 04/15 001 B/P 97/50 04/15 0015 Pulse 91 04/15 0015 Temp 98.6 04/14 1913 Vital Signs Date Temp Pulse Resp B/P B/P Mean Pulse Ox FiO2 04/14-04/15 98.6 91-112 87-120/50-68 65.0-85.0 PATIENT WEIGHT: Weight (lb): Weight (oz): Weight (kg): 70.105799 Vital Signs: Date Time Temp Pulse Resp B/P B/P Pulse O2 O2 Flow FiO2 Mean Ox Delivery Rate 04/15 15 68.0 04/15 001 91 97/50 04/15 0013 65.0 04/15 0013 96 87/52 04/14 230 79.0 04/14 2308 93 109/59 04/14 1913 [...] exam -Continuous EFM, toco at 0352 RPT #:[id number] END OF REPORT [facility] 2022-04-14 22:05:00 [facility] ([facility]) OB Admission / H P REPORT#:[id number] REPORT STATUS: Signed DATE:04/14/22 TIME: 2204 PATIENT: TIFFANY RUFFIN UNIT #: [id number] ROOM/BED: [facility] : 97 AGE: 27 SEX: [...] Mean Pulse Ox FiO2 04/14 98.6 112 120/ 85.0 PATIENT WEIGHT: Weight (lb): Weight (oz): [...] pH (5 - 9) 8.0 Ur Specific Carefree (1.001 - 1.035) 1.011 Urine Protein (NEG) [...] threatened labor. She will be transferred to [facility] and re-examined in a few hours to see if she is making progress on her own mechanism. her primary OBGYN has been contacted and gave orders to the nurse. at 2225 RPT #:[id number] END OF REPORT [facility] 2022-03-28 04:00:00 [facility] EMERGENCY PROVIDER REPORT REPORT#:[id number] REPORT STATUS: Signed DATE:03/28/22 TIME: 0400 PATIENT: TIFFANY RUFFIN UNIT #: [id number] ROOM/BED: AGE: 27 SEX: F PCP PHYS: [...] 0415 AC (TERBUTALINE 1 MG/ML SUBQ 03/28 0436 1 ML AMP) Allergies Coded Allergies: No Known Allergies (03/21/22) Comments: Uterine irritability false labor responded to Terbutaline last week Objective General VS: Last Documented: Result Date Time B/P Mean 87.0 03/28 225 B/P /03/28 Temp 98.4 03/28 022 Pulse 85 03/28 [...] discharge after adequate response. at 0421 RPT #:[id number] END OF REPORT [facility] 2022-03-21 14:03:00 [facility] EMERGENCY PROVIDER REPORT REPORT#:[id number] REPORT STATUS: Signed DATE:03/21/22 TIME: 1403 PATIENT: TIFFANY RUFFIN UNIT #: [id number] ROOM/BED: AGE: 27 SEX: F PCP PHYS: [...] 1 TAB TAB HYDROcodone/APAP 1 TAB PO 10 06/01/18 (HYDROcodone/APAP 5/325) Q6H PRN PRN PAIN [...] Weight (lb): 152 Weight (oz): Weight (kg): 68.092682 Physical Exam HEENT: normocephalic w/o injury Lungs: clear to auscultation Abdomen: gravid, no guarding Uterine activity: Monitor: toco Frequency (description): regular Frequency (minutes): 2 Intensity: mild Cervical/ exam: Dilatation (cm): 0 - closed Effacement (%): 50 FHR evaluation: Baseline: 110 bpm Variability: moderate 6-25 bpm Accelerations: 15 X 15, 10 X 10 Decelerations: none FHR category: category 1 Results Findings/Data: Laboratory Tests: 03/21 132 Urines Urine Color (YELLOW) YELLOW Urine Appearance (CLEAR) CLEAR Urine pH (5 - 9) 7.0 Ur Specific Carefree (1.001 - 1.035) 1.011 Urine Protein (NEG) [...] Text A P: Patient 27 yr old [id number] at 32.6/7wk with contraction s/p sex Plan: [...] with: patient, spouse/partner, nurse at 1828 RPT #:[id number] END OF REPORT [facility]
[2024-08-10] MEDS ORDERED: IBUPROFEN 400 MG TAB ONE (04:12)
--- NOTE | 2024-08-10 04:37 | ER ---
Nurse's Notes [facility] Name: Yane Viera Age: 29 yrs Sex: Female : 1995 Arrival Date: 08/10/2024 Time: 03:34 Bed DX1 Private MD: Diagnosis: Acute sinusitis, acute bacterial pharyngitis;Acute suppurative otitis media without spontaneous rupture of ear drum, recurrent, right ear Presentation: 08/10 03:42 Chief complaint: Patient states: right ear pain with throbbing. Coronavirus screen: Client denies travel out of the [place] in the last 14 days. At this time, the client does not indicate any symptoms associated with coronavirus-19. Ebola Screen: Patient negative for fever greater than or equal to 101.5 degrees Fahrenheit, and additional compatible Ebola Virus Disease symptoms Patient denies exposure to infectious person. Patient denies travel to an Ebola-affected area in the 21 days before illness onset. No symptoms or risks identified at this time. Initial Sepsis Screen: Does the patient meet any 2 criteria? No. Patient's initial sepsis screen is negative. Does the patient have a suspected source of infection? No. Patient's initial sepsis screen is negative. Risk Assessment: Do you want to hurt yourself or someone else? Patient reports no desire to harm self or others. Onset of symptoms was August 10, 2024 at 02:45. 03:42 Method Of Arrival: Ambulatory 03:42 Acuity: ADILENE 4 CHIEF OPHTHALMIC TECHNICIAN: 03:45 LMP 08/05/2024, unknown Historical: - Allergies: 03:44 No Known Allergies; kl - PMHx: 03:44 Anxiety; depressive disorder; - PSHx: 03:44 None; kl - Immunization history:: Client reports receiving the 2nd dose of the Covid vaccine, Flu vaccine is up to date. - Infectious Disease History:: Denies. - Social history:: Smoking status: Reported history of juuling and/or vaping. - Family history:: not pertinent. Screenin:[address] [facility] Fall Risk Assessment (Adult) History of falling in the last 3 months, including since admission No falls in past 3 months (0 pts) Confusion or Disorientation No (0 pts) Intoxicated or Sedated No (0 pts) Impaired Gait No (0 pts) Mobility Assist Device Used No (0 pt) Altered Elimination No (0 pt) Score/Fall Risk Level 0 - 2 = Low Risk Oriented to surroundings, Maintained a safe environment, Educated pt \T\ family on fall prevention, incl call for assistance when getting out of bed, Hourly rounding (assess needs \T\ fall precautionary measures) done. Abuse screen: Denies threats or abuse. Nutritional screening: No deficits noted. Tuberculosis screening: No symptoms or risk factors identified. Assessment: 05:04 General: Appears in no apparent distress. Behavior is calm, cooperative. Pain:. kd3 Vital Signs: 03:42 Weight 65.77 kg; Height 5 ft. 1 in. ; Pain 9/10; kl 03:46 BP 115 / 74; Pulse 87; Resp 16; Temp 97.9; Pulse Ox 99% ; kl 03:42 Body Mass Index 27.40 (65.77 kg, 154.94 cm) kl 03:42 Pain Scale: Adult Korina Coma Score: 08/11 01:42 Eye Response: spontaneous(4). Motor Response: obeys commands(6). Verbal Response: sp4 oriented(5). Total: 15. ED Course: 08/10 03:37 Patient arrived in ED. gm2 03:43 Triage completed. kl 03:44 Arm band placed on right wrist. EKG completed in triage. Results shown to MD. EKG kl completed in triage. Results shown to MD. 03:45 Patient has correct armband on for positive identification. kl 03:48 Milton Garcia MD is Attending Physician. sp4 05:00 Haylie Giraldo, RN is Primary Nurse. vc1 05:04 No provider procedures requiring assistance completed. Patient did not have IV access kd3 during this emergency room visit. 05:05 Provided Education on: antibiotics . kd3 Administered Medications: 04:14 Drug: Ibuprofen PO 800 mg PO once Route: PO; vc1 05:04 Drug: Rocephin (cefTRIAXone) IM 1 grams IM once Route: IM; Site: right ventrogluteal; kd3 05:04 Drug: Acetaminophen PO 1000 mg PO once Route: PO; kd3 Medication: 03:45 VIS not applicable for this client. kl Outcome: 04:36 Discharge ordered by . sp4 05:04 Discharged to home ambulatory, kd3 05:04 Condition: stable 05:04 Discharge instructions given to patient, Instructed on discharge instructions, follow up and referral plans. medication usage, Demonstrated understanding of instructions, follow-up care, medications, Prescriptions given X 2, 05:15 Patient left the ED. kd3 Signatures: Estefanía Solis RN Dona Rao RN RN kd3 Haylie Giraldo RN RN vc1 Milton Garcia MD MD sp4 Kary Tompkins 2
--- NOTE | 2024-08-10 04:37 | EDPHYS ---
Physician Documentation [facility] Name: Yane Viera Age: 29 yrs Sex: Female : 1995 Arrival Date: 08/10/2024 Time: 03:34 Bed DX1 Private MD: ED Physician Milton Garcia HPI: 08/10 04:34 This 29 yrs old Female presents to ER via Ambulatory with complaints of Ear sp4 Pain. 08/11 01:42 29-year-old female presents with acute onset of right ear pain.. 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 - Infectious Disease History:: Denies. - Social history:: Smoking status: Reported history of juuling and/or vaping. - Family history:: not pertinent. ROS: 08/11 01:42 Constitutional: Negative for fever, chills, and weight loss, positive right ear pain sp4 All other systems are negative, Exam: 01:42 Constitutional: This is a well developed, well nourished patient who is awake, alert, sp4 and in no acute distress. Head/Face: Normocephalic, atraumatic. Eyes: Pupils equal round and reactive to light, extra-ocular motions intact. Lids and lashes normal. Conjunctiva and sclera are not injected. Cornea within normal limits. Periorbital areas with no swelling, redness, or edema. ENT: Nares patent. No nasal discharge, no septal abnormalities noted. Positive right tympanic membrane tenderness erythema and effusion. Oropharynx with no redness, swelling, or masses, exudates, or evidence of obstruction, uvula midline. Mucous membranes moist. Neck: Trachea midline, no thyromegaly or masses palpated, and no cervical lymphadenopathy. Supple, full range of motion without nuchal rigidity, or vertebral point tenderness. Chest/axilla: Normal chest wall appearance and motion. Nontender with no deformity. No lesions are appreciated. Cardiovascular: Regular rate and rhythm with a normal S1 and S2. No gallops, murmurs, or rubs. Normal PMI, no JVD. No pulse deficits. Respiratory: Lungs have equal breath sounds bilaterally, clear to auscultation and percussion. No rales, rhonchi or wheezes noted. No increased work of breathing, no retractions or nasal flaring. Abdomen/GI: Soft, with normal bowel sounds. No distension or tympany. No guarding or rebound. No evidence of tenderness throughout. Back: No spinal tenderness. No costovertebral tenderness. Skin: Warm, dry with normal turgor. Normal color with no rashes, no lesions, and no evidence of cellulitis. MS/ Extremity: Pulses equal, no cyanosis. Neurovascular intact. Full, normal range of motion. Neuro: Awake and alert, GCS 15, oriented to person, place, time, and situation. Cranial nerves II-XII grossly intact. Motor strength 5/5 in all extremities. Sensory grossly intact. Psych: Awake, alert, with orientation to person, place and time. Behavior, mood, and affect are within normal limits Vital Signs: 08/10 03:42 Weight 65.77 kg; Height 5 ft. 1 in. ; Pain 9/10; kl 03:46 BP 115 / 74; Pulse 87; Resp 16; Temp 97.9; Pulse Ox 99% ; kl 03:42 Body Mass Index 27.40 (65.77 kg, 154.94 cm) kl 03:42 Pain Scale: Adult kl Korina Coma Score: 08/11 01:42 Eye Response: spontaneous(4). Motor Response: obeys commands(6). Verbal Response: sp4 oriented(5). Total: 15. MDM: 08/10 03:47 Medical Screening Exam initiated sp4 08/11 01:42 Differential diagnosis: otitis media, otitis externa, ruptured TM, foreign body, acute sp4 otalgia. Data reviewed: vital signs, nurses notes. ED course: Stable for discharge home with antibiotics.. Administered Medications: 08/10 04:14 Drug: Ibuprofen PO 800 mg PO once Route: PO; vc1 05:04 Drug: Rocephin (cefTRIAXone) IM 1 grams IM once Route: IM; Site: right ventrogluteal; kd3 05:04 Drug: Acetaminophen PO 1000 mg PO once Route: PO; kd3 Disposition: 08/11 01:44 Chart complete. sp4 Disposition Summary: 08/10/24 04:36 Discharge Ordered Notes: Location: Home sp4 Problem: new sp4 Symptoms: have improved sp4 Condition: Stable sp4 Diagnosis - Acute sinusitis, acute bacterial pharyngitis sp4 - Acute suppurative otitis media without spontaneous rupture of ear drum, recurrent, sp4 right ear Followup: sp4 - With: Private Physician - When: 7 - 10 days - Reason: Recheck today's complaints Discharge Instructions: - Discharge Summary Sheet sp4 - Otitis Media With Effusion, Adult sp4 Forms: - Work release form kd3 - Patient Portal Instructions sp4 Prescriptions: - cefdinir 300 mg Oral capsule - take 1 capsule ORAL route every 12 hours for 10 days; 20 capsule; Refills: 0, sp4 Product Selection Permitted - Ibuprofen 800 mg Oral Tablet - take 1 tablet ORAL route every 8 hours As needed take with food; 30 tablet; sp4 Refills: 0, Product Selection Permitted Signatures: Estefanía Solis RN RN kl Doucette, Kyli, RN RN kd3 Haylie Giraldo RN RN vc1 Milton Garcia MD MD sp4
[2024-08-10] MEDS ORDERED: ACETAMINOPHEN 500 MG TAB ONE (04:49)
[2024-08-10] MEDS ORDERED: LIDOCAINE 1% MPF 2 ML AMPULE ONE (04:49)
[2024-08-10] MEDS ORDERED: CEFTRIAXONE 1000 MG/VIAL ONE (04:49)
[2024-08-10 05:22] VITALS: BP 115/74; TEMP 97.9; O2SAT 99
== END 2024-08-10 05:15 | disposition home or self-care (01) ==
LOC: ER 03:34
DX: H66.004 Acute suppurative otitis media without spontaneous rupture of ear drum, recurrent, right ear (principal); J01.90 Acute sinusitis, unspecified; J02.8 Acute pharyngitis due to other specified organisms
CPT/HCPCS: 96372; 99284; J0696